=== PATIENT | male | born 1940 | race Caucasian/White ===

== ENCOUNTER 2018-09-24 13:37 | Inpatient (IN) ==
--- NOTE | 2018-09-24 13:36 | Emergency Department Note ---
ED Disposition Clinical Impression: SBO (small bowel obstruction) Disposition: Admitted As Inpatient Condition on Discharge: Fair - Critical Care Critical Care Time: No Attestation: On , the high probability of a clinically significant, sudden or life threatening deterioration of the following system(s) required my full and direct attention, intervention and personal management. The time I documented below is in addition to time spent performing reported procedures but includes the following listed in this critical care notation. Medical Decision Making - Carlos Inquiry Pt receiving controlled substance: No Vital Signs: 09/24/18 13:20 09/24/18 13:35 09/24/18 14:18 Temperature 98 F Temperature Source Oral Pulse Rate Pulse Rate [Left Radial] 65 71 68 Respiratory Rate 16 18 16 Blood Pressure Blood Pressure [Right Arm] 173/81 H 168/82 H 158/78 H Blood Pressure Mean [Right Arm] 111 110 104 Blood Pressure Source Blood Pressure Source [Right Arm] Automatic Cuff Automatic Cuff Automatic Cuff Blood Pressure Position Blood Pressure Position [Right Arm] Supine Supine Sitting 02 Sat by Pulse Oximetry 99 99 99 Oxygen Delivery Method Room Air Room Air 09/24/18 14:37 09/24/18 16:19 09/24/18 17:23 Temperature Temperature Source Pulse Rate Pulse Rate [Left Radial] 68 66 79 Respiratory Rate 16 16 16 Blood Pressure Blood Pressure [Right Arm] 154/67 H 162/78 H 163/72 H Blood Pressure Mean [Right Arm] 96 106 102 Blood Pressure Source Blood Pressure Source [Right Arm] Manual Cuff/ Doppler Automatic Cuff Automatic Cuff Blood Pressure Position Blood Pressure Position [Right Arm] Sitting Sitting Supine 02 Sat by Pulse Oximetry 99 98 100 Oxygen Delivery Method Room Air Room Air Room Air 09/24/18 17:54 09/24/18 18:08 09/24/18 18:17 Temperature 98.1 F Temperature Source Temporal Artery Scan Pulse Rate 71 Pulse Rate [Left Radial] 69 77 Respiratory Rate 18 18 16 Blood Pressure 121/74 Blood Pressure [Right Arm] 151/77 H 152/77 H Blood Pressure Mean [Right Arm] 101 102 Blood Pressure Source Automatic Cuff Blood Pressure Source [Right Arm] Automatic Cuff Blood Pressure Position Sitting Blood Pressure Position [Right Arm] Sitting 02 Sat by Pulse Oximetry 100 98 Oxygen Delivery Method Room Air Room Air Room Air - Lab Data Lab Results 09/24/18 14:00: WBC 8.1, RBC 5.73, Hgb 14.9, Hct 44.2, MCV 77.2 L, MCH 25.9 L, MCHC 33.6, RDW 15.4, Plt Count 266, MPV 7.2 L, Neut % (Auto) 84.4 H, Lymph % (Auto) 8.9 L, [place] % (Auto) 6.2, Eos % (Auto) 0.2, Baso % (Auto) 0.3, Neut # (Auto) 6.8, Lymph # (Auto) 0.7, [place] # (Auto) 0.5, Eos # (Auto) 0.0, Baso # (Auto) 0.0 09/24/18 14:00: Sodium 135 L, Potassium 3.9, Chloride 97 L, Carbon Dioxide 27, Anion Gap 14.9, BUN 28 H, Creatinine 1.86 H, Estimated Creat Clear 44, Estimated GFR 35 L, Est GFR ( Amer) 43 L, Glucose 208 H, Calcium 9.7, Total Bilirubin 0.7, AST 25, ALT 33, Alkaline Phosphatase 113, Troponin I < 0.02, Total Protein 9.4 H, Albumin 3.6, Globulin 5.8 H, Albumin/Globulin Ratio 0.6 L, Lipase 96, TSH 11.17 H, Total Valproic Acid 55.8 09/24/18 14:47: Urine Color Yellow, Urine Appearance Clear, Urine pH 5.5, Ur Specific [place] >= 1.030, Urine Protein 2+, Urine Glucose (UA) Negative, Urine Ketones Trace, Urine Blood Negative, Urine Nitrate Negative, Urine Bilirubin Negative, Urine Urobilinogen 0.2, Ur Leukocyte Esterase Negative, Urine RBC Occ asional, Urine WBC 5-10, Ur Squamous Epith Cells 3-5, Urine Bacteria 1+ Result diagrams: 09/24/18 14:00 09/24/18 14:00 Orders (Tests/Meds): ED MEDICATIONS Generic Name Dose Route Start Last Admin Trade Name Freq PRN Reason Stop Dose Admin Sodium Chloride 1,000 mls @ 150 mls/hr 09/24/18 18:07 09/24/18 18:55 Sod Chlor 0.9% 1000ml Bag IV 10/24/18 16:59 150 mls/hr .[id number] ELYSE Administration Insulin Human Lispro 0 unit 09/24/18 21:00 Humalog 100 Units/Ml 3ml Vial (Ssi) SQ 10/24/18 20:59 ACHS ELYSE Protocol Morphine Sulfate 4 mg 09/24/18 18:07 Morphine 2mg/Ml Syringe IV 10/24/18 18:06 Q4HP PRN Severe Pain Ondansetron HCl 4 mg 09/24/18 18:07 Zofran 4mg/2ml Vial IV 10/24/18 18:06 Q8HP PRN Nausea Sodium Chloride 10 ml 09/24/18 18:07 Saline Flush 10ml Syringe IV 10/24/18 13:49 NEEDED PRN Maintain IV Site Discontinued Medications Generic Name Dose Route Start Last Admin Trade Name Freq PRN Reason Stop Dose Admin Sodium Chloride 1,000 mls @ 150 mls/hr 09/24/18 17:00 Sod Chlor 0.9% 1000ml Bag IV 10/24/18 16:59 .Q6H40M ELYSE Ondansetron HCl 4 mg 09/24/18 13:50 09/24/18 14:17 Zofran 4mg/2ml Vial IV 09/24/18 13:51 4 mg ONCE ONE Administration Sodium Chloride 1,000 ml 09/24/18 13:50 09/24/18 14:17 Sod Chlor 0.9% 1000ml Bag IV 09/24/18 13:51 1,000 ml BOLUS ONE Administration Sodium Chloride 10 ml 09/24/18 13:50 Saline Flush 10ml Syringe IV 10/24/18 13:49 NEEDED PRN Maintain IV Site ORDERS Category Date Time Status Consult to On-Call Gen'l Surgeon [CONS] Routine Cons 09/24/18 18:07 Ordered XR acute abdomen series Stat Exams 09/25/18 07:00 Ordered Basic Metabolic Panel AMLAB Lab 09/25/18 06:00 Ordered - CT Data CT Scan: Abdomen, Pelvis Time Received: 16:[address] Reviewed: Yes: I have viewed the radiologist's interpretation Findings Narrative: IMPRESSION: Moderate grade partial small bowel obstruction is suspected with questionable transition point in the left mid abdominal region within the mid to distal ileum. Scattered air-fluid levels are present in the small bowel with distended small bowel measuring up to 5 cm. There is also gastric distention with a fluid-filled stomach. Consider repeating exam with at least oral contrast. IV contrast may be utilized patient once the patient is hydrated if the renal function improves.. There is a small amount of ascites Dictated By: Elver Veliz MD Signed By: <Electronically signed by Elver Veliz MD in OV> 09/24/18 1611 - ECG Data Tracing #1 EKG interpreted by Antoni Angelo MD: Rhythm: sinus Rate: 79 [place]: Left Ectopy: none Conduction: normal ST Segment Changes: none T Wave Changes: none Q Waves: V2 LVH with strain No prior EKGs available for comparison - Physician Consults Physician Consulted: Darrel Time: 16:51 Reason -: Surgical Eval/Care Comment/Response: Agrees with NG tube for decompression. Flat and upright x- rays tomorrow. Additional Consult: Chanda Time: 16:58 Reason -: Admission Comment/Response: Agrees to admit the patient to the hospital. We discussed the patient's clinical information, including history, exam, laboratory and radiology results and ED course. Per hospital procedure, I will write temporary bridge inpatient orders on the patient. Specific orders requested by the [facility] physician: Continue IV fluids. Medical Decision Narrative: Spoke with pharmacist regarding medications that may be needed intravenously since he has an NG tube to suction and cannot get anything by NG or mouth. I am particularly concerned about thyroxine, which seems like it needs to be increased based on his TSH level and his Depakote, which seems to likely be for behavioral purposes since he does not carry a diagnosis of seizures. General Adult HPI - General Chief complaint: Nausea/Vomiting/Diarrhea Stated complaint: nausea Time Seen by Provider: 09/24/18 13:35 Mode of Arrival: EMS Limitations: Altered Mental Status Description of Symptoms (Recalled from ER Triage Doc. by RN): pt has been experiencing n/v since yesterday; complains of green vomitus and ABD cramping - History of Present Illness HPI narrative: Brought in by ambulance from [facility]. He has schizophrenia and is a poor historian. There has been reported vomiting and abdominal cramping since yesterday. The patient's abdomen is noted to be quite distended. Currently denying any pain. Bowel movements are unknown. - Related Data Home Medications Medication Instructions Recorded Confirmed Divalproex Sodium [Depakote ER] 500 mg PO DIRECTED 09/24/18 09/24/18 Docusate Sodium [Dulcolax Stool 100 mg PO DAILY 09/24/18 09/24/18 Softener] Levothyroxine Sodium 75 mcg PO DAILY 09/24/18 09/24/18 [Levothyroxine 75mcg (0.075mg) Tab] OLANZapine [Zyprexa] 10 mg PO DAILY 09/24/18 09/24/18 Polyethylene Glycol 3350 [Miralax 17 gm PO DAILYP PRN 09/24/18 09/24/18 17gm Packet] Rosuvastatin Calcium [Crestor] 20 mg PO DAILY 09/24/18 09/24/18 Allergies Allergy/AdvReac Type Severity Reaction Status Date / Time No Known Allergies Allergy Verified 09/24/18 18:05 [facility] History - Hepatitis A Screen Drug use history?: No High risk sexual behaviors?: No History of sexually transmitted infection?: No Currently employed?: No Childcare worker?: No Do you have indoor plumbing?: Yes Do you have electricity?: Yes Attestation statement:: This patient has been screened for Hepatitis A risk factors. I have reviewed the patient's past medical history: Yes Medical History: Reports:: Diabetes Mellitus Type 1, Diabetes Mellitus Type 2, Hyperlipidemia, Renal Disease (CKD stage 3) Denies:: Cancer, Internal Pacemaker, MRSA Other Medical History: Reports: Thyroid Disease (hyperthyroid), Other (schizophrenia, MR) Other Surgeries: No: Pacemaker Amputation: No Fractures: No - Social History Smoking Status: Former smoker Tobacco Type: cigarettes # Packs/Day (cigarettes): 2 Alcohol Intake: never Occupational Status: disabled Housing: assisted living facility Household Members: other - Psychiatric History Expresses thoughts of harming self/others: None Suicide Plan Description: No Plan ROS Obtained: Yes unobtainable due to mental condition Physical Exam - General General appearance: alert, in no apparent distress Comment: Smiling and pleasant. Does not appear to be in acute distress. Brownish liquid has dried in his facial hair below his lower lip, apparent vomitus. No discol oration of mucous membranes or vomitus present in mouth. - Head Head exam: atraumatic, normocephalic - ENT ENT exam: Present: mucous membranes moist - Neck Neck exam: Present: normal inspection, trachea midline - Chest Chest inspection: Present: normal inspection, symmetric chest wall rise - Respiratory Respiratory exam: Present: normal lung sounds bilaterally. Absent: respiratory distress - Cardiovascular Cardiovascular exam: Present: regular rate, normal rhythm, normal heart sounds - Abdominal Exam Abdominal exam: Present: distention (Very distended, tympanitic), tenderness, hyperactive bowel sounds Abdominal tenderness: Present: diffuse, mild - Extremities Exam Extremities exam: Present: normal inspection - Neurological Exam Neurological exam: Present: alert - Psychiatric Psychiatric exam: Present: normal affect, normal mood - Skin Skin exam: Present: warm, dry
[2018-09-24 14:11] LABS: Basophils % 0.3 % (0.1-2.0); Eosinophils % 0.2 % (0.1-12.0); Hematocrit 44.2 % (42.0-52.0); Hemoglobin 14.9 g/dL (14.1-18.0); Lymphocytes # 0.7 K/mm3 (0.7-4.5); Lymphocytes % 8.9 % (10-50); Mean Corpuscular HGB Conc 33.6 g/dL (31.8-35.4); Mean Corpuscular Hemoglobin 25.9 pg (27.0-31.2); Mean Corpuscular Volume 77.2 fl (80-94); Mean Platelet Volume 7.2 fl (7.4-10.4); Monocytes # 0.5 K/mm3 (0.1-1.0); Monocytes % 6.2 % (1.7-9.3); Neutrophils # 6.8 K/mm3 (1.8-7.8); Neutrophils % 84.4 % (37.0-80.0); Platelet Count 266 K/mm3 (142-424); Red Blood Count 5.73 M/mm3 (4.60-6.20); Red Cell Distribution Width 15.4 % (11.5-17.5); White Blood Count 8.1 K/mm3 (4.8-10.8)
[2018-09-24 14:34] LABS: Alanine Aminotransferase 33 U/L (12-78); Albumin Level 3.6 gm/dL (3.4-5.0); Albumin/Globulin Ratio 0.6 (1.1-1.8); Alkaline Phosphatase 113 U/L (46-116); Anion Gap 14.9 mEq/L (5-15); Aspartate Amino Transferase 25 U/L (15-37); Bilirubin,Total 0.7 mg/dL (0.2-1.0); Blood Urea Nitrogen 28 mg/dL (7-18); Calcium 9.7 mg/dL (8.5-10.1); Carbon Dioxide 27 mmol/L (21.0-32.0); Chloride 97 mmol/L (98-107); Globulin 5.8 gm/dl (1.3-3.2); Glucose 208 mg/dL (74-106); Lipase 96 u/L (73-393); Potassium 3.9 mmoL/L (3.5-5.1); Sodium 135 mmol/L (136-145); Thyroid Stimulating Hormone 11.17 uIU/ml (0.358-3.740); Total Protein,Serum 9.4 gm/dL (6.4-8.2); Valproic Acid, (Depakene) 55.8 ug/mL (50-100)
[2018-09-24 14:53] LABS: Microscopic, Urine URINE MICROSCOPIC (MICROSCOPIC)
[2018-09-24 14:58] LABS: Appearance,Urine CLEAR (Clear); Blood, Urine Negative (Negative); Color,Urine YELLOW (Yellow); Glucose,Urine (UA) Negative (Negative); Ketones,Urine TRACE (Negative); Leukocyte Esterase,Urine Negative (Negative); PH,Urine 5.5 (5.0-8.5); Protein,Urine 2+ (Negative); Specific Gravity, Urine >= 1.030 (1.005-1.030); Urobilinogen,Urine 0.2 EU/dl (0.2)
[2018-09-24 15:17] LABS: Bilirubin,Urine Negative (Negative)
[2018-09-24 15:20] LABS: Bacteria,Urine 1+ /lpf; RBC,Urine Occasional #/hpf (0-3)
--- NOTE | 2018-09-24 20:10 | Consult Report ---
*Admission Date: 09/24/18 *Chief complaint: Nausea/vomiting/abdominal distention *History of present illness: This is a 69-year-old gentleman seen in consultation after presenting to the emergency department with subacute onset nausea/vomiting and abdominal distention. Evaluation included a CT scan without contrast that revealed changes consistent with partial obstruction with a questionable transition (al though only a taper and not an abrupt transition) in the mid/distal ileum. Surgical service was consulted for further evaluation. Review of Systems - Review of Systems Review of systems:: unable to obtain [facility] History Medical History: Reports:: Diabetes Mellitus Type 1, Diabetes Mellitus Type 2, Hyperlipidemia, Renal Disease (CKD stage 3) Denies:: Cancer, Internal Pacemaker, MRSA *Have you ever received a pneumonia vaccine?: No (UNKNOWN) *Have you received a flu vaccine this season?: No (UNKNOWN) Other Medical History: Reports: Thyroid Disease (hyperthyroid), Other (schizophrenia, MR) Other Surgeries: No: Pacemaker Amputation: No Fractures: No - *Social History Smoking Status: Former smoker Tobacco Type: cigarettes # Packs/Day (cigarettes): 2 Alcohol Intake: never *Occupational Status:: disabled Housing: assisted living facility Household Members: other *Travel in the last 8 weeks: None - Psychiatric History Expresses thoughts of harming self/others: None Suicide Plan Description: No Plan Family Hx:: Unable to obtain Meds Home Medications Medication Instructions Recorded Confirmed Type Divalproex Sodium [Depakote ER] 500 mg PO DIRECTED 09/24/18 09/24/18 History Docusate Sodium [Dulcolax Stool 100 mg PO DAILY 09/24/18 09/24/18 History Softener] Levothyroxine Sodium 75 mcg PO DAILY 09/24/18 09/24/18 History [Levothyroxine 75mcg (0.075mg) Tab] OLANZapine [Zyprexa] 10 mg PO DAILY 09/24/18 09/24/18 History Polyethylene Glycol 3350 [Miralax 17 gm PO DAILYP PRN 09/24/18 09/24/18 History 17gm Packet] Rosuvastatin Calcium [Crestor] 20 mg PO DAILY 09/24/18 09/24/18 History Allergies Allergy/AdvReac Type Severity Reaction Status Date / Time No Known Allergies Allergy Verified 09/24/18 18:05 Exam Vital signs and Labs for Last 24 Hours: Temp Pulse Resp BP Pulse Ox 98.6 F 81 20 141/76 H 98 09/24/18 20:00 09/24/18 20:00 09/24/18 20:00 09/24/18 20:00 09/24/18 20:00 Laboratory Results - last 24 hr 09/24/18 14:00: WBC 8.1, RBC 5.73, Hgb 14.9, Hct 44.2, MCV 77.2 L, MCH 25.9 L, MCHC 33.6, RDW 15.4, Plt Count 266, MPV 7.2 L, Neut % (Auto) 84.4 H, Lymph % (Auto) 8.9 L, [place] % (Auto) 6.2, Eos % (Auto) 0.2, Baso % (Auto) 0.3, Neut # (Auto) 6.8, Lymph # (Auto) 0.7, [place] # (Auto) 0.5, Eos # (Auto) 0.0, Baso # (Auto) 0.0 09/24/18 14:00: Sodium 135 L, Potassium 3.9, Chloride 97 L, Carbon Dioxide 27, Anion Gap 14.9, BUN 28 H, Creatinine 1.86 H, Estimated Creat Clear 44, Estimated GFR 35 L, Est GFR ( Amer) 43 L, Glucose 208 H, Calcium 9.7, Total Bilirubin 0.7, AST 25, ALT 33, Alkaline Phosphatase 113, Troponin I < 0.02, Total Protein 9.4 H, Albumin 3.6, Globulin 5.8 H, Albumin/Globulin Ratio 0.6 L, Lipase 96, TSH 11.17 H, Total Valproic Acid 55.8 09/24/18 14:47: Urine Color Yellow, Urine Appearance Clear, Urine pH 5.5, Ur Specific [place] >= 1.030, Urine Protein 2+, Urine Glucose (UA) Negative, Urine Ketones Trace, Urine Blood Negative, Urine Nitrate Negative, Urine Bilirubin Negative, Urine Urobilinogen 0.2, Ur Leukocyte Esterase Negative, Urine RBC Occasional, Urine WBC 5-10, Ur Squamous Epith Cells 3-5, Urine Bacteria 1+ I & O for Last 24 hours: Intake & Output 09/22/18 09/23/18 09/24/18 09/25/18 11:59 11:59 11:59 11:59 Weight 156 lb 4 oz - Constitutional no acute distress - *Routine Respiratory Exam Absent: respiratory distress - *Routine Cardiovascular Exam Present: RRR - *Routine Abdominal Exam Present: soft, distended. Absent: tenderness Results - Labs 09/24/18 14:00 09/24/18 14:00 Laboratory Results - last 24 hr 09/24/18 14:00: WBC 8.1, RBC 5.73, Hgb 14.9, Hct 44.2, MCV 77.2 L, MCH 25.9 L, MCHC 33.6, RDW 15.4, Plt Count 266, MPV 7.2 L, Neut % (Auto) 84.4 H, Lymph % (Auto) 8.9 L, [place] % (Auto) 6.2, Eos % (Auto) 0.2, Baso % (Auto) 0.3, Neut # (Auto) 6.8, Lymph # (Auto) 0.7, [place] # (Auto) 0.5, Eos # (Auto) 0.0, Baso # (Auto) 0.0 09/24/18 14:00: Sodium 135 L, Potassium 3.9, Chloride 97 L, Carbon Dioxide 27, Anion Gap 14.9, BUN 28 H, Creatinine 1.86 H, Estimated Creat Clear 44, Estimated GFR 35 L, Est GFR ( Amer) 43 L, Glucose 208 H, Calcium 9.7, Total Bilirubin 0.7, AST 25, ALT 33, Alkaline Phosphatase 113, Troponin I < 0.02, Total Protein 9.4 H, Albumin 3.6, Globulin 5.8 H, Albumin/Globulin Ratio 0.6 L, Lipase 96, TSH 11.17 H, Total Valproic Acid 55.8 09/24/18 14:47: Urine Color Yellow, Urine Appearance Clear, Urine pH 5.5, Ur Specific [place] >= 1.030, Urine Protein 2+, Urine Glucose (UA) Negative, Urine Ketones Trace, Urine Blood Negative, Urine Nitrate Negative, Urine Bilirubin Negative, Urine Urobilinogen 0.2, Ur Leukocyte Esterase Negative, Urine RBC Occasional, Urine WBC 5-10, Ur Squamous Epith Cells 3-5, Urine Bacteria 1+ - Imaging CT scan - abdomen: report reviewed, image reviewed CT scan - pelvis: report reviewed, image reviewed Assessment and Plan (1) SBO (small bowel obstruction) Current visit: Yes Status: Acute Category: Medical Code(s): K56.609 - Uns pecified intestinal obstruction, unspecified as to partial versus complete obstruction Seemingly partial obstruction with questionable transition (tapering, but not abrupt "cut off") and mid/distal ileum. The patient is quite distended but does not have an acute abdomen. Continue nasogastric decompression Serial exams Flat and upright films in a.m. Small bowel follow-through with barium followed by Gastrografin
--- NOTE | 2018-09-24 20:42 | History & Physical Report ---
*Admission Date: 09/24/18 *Chief complaint: vomiting *History of present illness: this wm was sent from local half-way with progressive abd pain with vomiting - rought in by ambulance from [facility]. He has schizophrenia and is a poor historian. There has been reported vomiting and abdominal cramping since yesterday. The patient's abdomen is noted to be quite distended. Currently denying any pain. Bowel movements are unknown. pt with sbo on ct and pt with continued sx and was admitted with ng tube and ivf and surg consult [facility] History I have reviewed the patient's past medical history: Yes Medical History: Reports:: Diabetes Mellitus Type 1, Diabetes Mellitus Type 2, Hyperlipidemia, Renal Disease (CKD stage 3) Denies:: Cancer, Internal Pacemaker, MRSA *Have you ever received a pneumonia vaccine?: No (UNKNOWN) *Have you received a flu vaccine this season?: No (UNKNOWN) Other Medical History: Reports: Thyroid Disease (hyperthyroid), Other (schizo phrenia, MR) Other Surgeries: No: Pacemaker Amputation: No Fractures: No - *Social History Smoking Status: Former smoker Tobacco Type: cigarettes # Packs/Day (cigarettes): 2 Alcohol Intake: never *Occupational Status:: disabled Housing: assisted living facility Household Members: other *Travel in the last 8 weeks: None - Psychiatric History Expresses thoughts of harming self/others: None Suicide Plan Description: No Plan Family Hx:: Unable to obtain Review of Systems - Review of Systems Review of systems:: pertinent systems reviewed and negative unless documented below - Constitutional Denies fever(s) - Eyes Denies change in vision - ENT Denies sore throat - *Cardiovascular Denies chest pain at rest - *Respiratory Denies cough - *Gastrointestinal Reports abdominal pain, Reports nausea, Reports vomiting - *Musculoskeletal Denies joint pain - Integumentary/Breasts Denies rash - *Neurologic Denies confusion, Denies seizure-like activity - Psychiatric Denies anxiety Meds Home Medications Medication Instructions Recorded Confirmed Type Divalproex Sodium [Depakote ER] 500 mg PO DIRECTED 09/24/18 09/24/18 History Docusate Sodium [Dulcolax Stool 100 mg PO DAILY 09/24/18 09/24/18 History Softener] Levothyroxine Sodium 75 mcg PO DAILY 09/24/18 09/24/18 History [Levothyroxine 75mcg (0.075mg) Tab] OLANZapine [Zyprexa] 10 mg PO DAILY 09/24/18 09/24/18 History Polyethylene Glycol 3350 [Miralax 17 gm PO DAILYP PRN 09/24/18 09/24/18 History 17gm Packet] Rosuvastatin Calcium [Crestor] 20 mg PO DAILY 09/24/18 09/24/18 History Allergies Allergy/AdvReac Type Severity Reaction Status Date / Time No Known Allergies Allergy Verified 09/24/18 18:05 Exam Vital signs and Labs for Last 24 Hours: Temp Pulse Resp BP Pulse Ox 98.6 F 81 20 141/76 H 98 09/24/18 20:00 09/24/18 20:00 09/24/18 20:00 09/24/18 20:00 09/24/18 20:00 Laboratory Results - last 24 hr 09/24/18 14:00: WBC 8.1, RBC 5.73, Hgb 14.9, Hct 44.2, MCV 77.2 L, MCH 25.9 L, MCHC 33.6, RDW 15.4, Plt Count 266, MPV 7.2 L, Neut % (Auto) 84.4 H, Lymph % (Auto) 8.9 L, [place] % (Auto) 6.2, Eos % (Auto) 0.2, Baso % (Auto) 0.3, Neut # (Auto) 6.8, Lymph # (Auto) 0.7, [place] # (Auto) 0.5, Eos # (Auto) 0.0, Baso # (Auto) 0.0 09/24/18 14:00: Sodium 135 L, Potassium 3.9, Chloride 97 L, Carbon Dioxide 27, Anion Gap 14.9, BUN 28 H, Creatinine 1.86 H, Estimated Creat Clear 44, Estimated GFR 35 L, Est GFR ( Amer) 43 L, Glucose 208 H, Calcium 9.7, Total Bilirubin 0.7, AST 25, ALT 33, Alkaline Phosphatase 113, Troponin I < 0.02, Total Protein 9.4 H, Albumin 3.6, Globulin 5.8 H, Albumin/Globulin Ratio 0.6 L, Lipase 96, TSH 11.17 H, Total Valproic Acid 55.8 09/24/18 14:47: Urine Color Yellow, Urine Appearance Clear, Urine pH 5.5, Ur Specific [place] >= 1.030, Urine Protein 2+, Urine Glucose (UA) Negative, Urine Ketones Trace, Urine Blood Negative, Urine Nitrate Negative, Urine Bilirubin Negative, Urine Urobilinogen 0.2, Ur Leukocyte Esterase Negative, Urine RBC Occasional, Urine WBC 5-10, Ur Squamous Epith Cells 3-5, Urine Bacteria 1+ I & O for Last 24 hours: Intake & Output 09/22/18 09/23/18 09/24/18 09/25/18 11:59 11:59 11:59 11:59 Weight 156 lb 4 oz - Constitutional no acute distress - *Routine HEENT Exam Head: Present: normocephalic Eye: Present: EOMI, PERRL. Absent: conjunctival icterus ENT: Present: mucous membranes dry - *Routine Neck Exam Absent: JVD - *Routine Respiratory Exam Present: decreased breath sounds - *Routine Cardiovascular Exam Present: RRR, murmur - *Routine Abdominal Exam Present: soft, tenderness, distended - *Routine Extremities Exam Absent: edema - *Routine Skin Exam Present: intact - *Routine Neurological Exam Present: alert, CN II-XII intact - Routine Psychiatric Exam Present: normal affect Assessment and Plan (1) SBO (small bowel obstruction) Current visit: Yes Status: Acute Category: Medical Code(s): K56.609 - Unspecified intestinal obstruction, unspecified as to partial versus complete obstruction (2) Schizophrenia Current visit: Yes Status: Acute Qualifiers: Schizophrenia type: unspecified Qualified Code(s): F20.9 - Schizophrenia, unspecified Category: Medical Code(s): F20.9 - Schizophrenia, unspecified (3) Renal insufficiency Current visit: Yes Status: Acute Category: Medical Code(s): N28.9 - Disorder of kidney and ureter, unspecified (4) Hypothyroidism (acquired) Current visit: Yes Status: Acute Category: Medical Code(s): E03.9 - Hypothyroidism, unspecified
--- NOTE | 2018-09-25 06:47 | Progress Note ---
Subjective Patient reports: other (resting) Exam Vital signs and Labs for Last 24 Hours: Temp Pulse Resp BP Pulse Ox 97.9 F 75 16 148/72 H 96 09/25/18 04:00 09/25/18 04:00 09/25/18 04:00 09/25/18 04:00 09/25/18 04:00 Laboratory Results - last 24 hr 09/24/18 14:00: WBC 8.1, RBC 5.73, Hgb 14.9, Hct 44.2, MCV 77.2 L, MCH 25.9 L, MCHC 33.6, RDW 15.4, Plt Count 266, MPV 7.2 L, Neut % (Auto) 84.4 H, Lymph % (Auto) 8.9 L, [place] % (Auto) 6.2, Eos % (Auto) 0.2, Baso % (Auto) 0.3, Neut # (Auto) 6.8, Lymph # (Auto) 0.7, [place] # (Auto) 0.5, Eos # (Auto) 0.0, Baso # (Auto) 0.0 09/24/18 14:00: Sodium 135 L, Potassium 3.9, Chloride 97 L, Carbon Dioxide 27, Anion Gap 14.9, BUN 28 H, Creatinine 1.86 H, Estimated Creat Clear 44, Estimated GFR 35 L, Est GFR ( Amer) 43 L, Glucose 208 H, Calcium 9.7, Total Bilirubin 0.7, AST 25, ALT 33, Alkaline Phosphatase 113, Troponin I < 0.02, Total Protein 9.4 H, Albumin 3.6, Globulin 5.8 H, Albumin/Globulin Ratio 0.6 L, Lipase 96, TSH 11.17 H, Total Valproic Acid 55.8 09/24/18 14:47: Urine Color Yellow, Urine Appearance Clear, Urine pH 5.5, Ur Specific [place] >= 1.030, Urine Protein 2+, Urine Glucose (UA) Negative, Urine Ketones Trace, Urine Blood Negative, Urine Nitrate Negative, Urine Bilirubin Negative, Urine Urobilinogen 0.2, Ur Leukocyte Esterase Negative, Urine RBC Occasional, Urine WBC 5-10, Ur Squamous Epith Cells 3-5, Urine Bacteria 1+ 09/24/18 22:17: POC Glucose 143 H I & O for Last 24 hours: Intake & Output 0409/23/18 09/24/18 09/25/18 11:59 11:59 11:59 11:59 Weight 159 lb 6 oz - Constitutional no acute distress - *Routine Abdominal Exam Present: soft, distended Comments: no significant TTP significant distention is essentially unchanged Progress Note: A&P (1) SBO (small bowel obstruction) Status: Acute Assessment and plan: Partial obstruction of undetermined etiology versus severe ileus Follow-up morning films Follow-up pending small bowel follow-through Continue nasogastric decompression Continue serial abdominal exams Current Visit: Yes
[2018-09-25 07:36] LABS: Basophils % 0.2 % (0.1-2.0); Eosinophils % 0.5 % (0.1-12.0); Hematocrit 42.4 % (42.0-52.0); Hemoglobin 14.2 g/dL (14.1-18.0); Lymphocytes # 1.2 K/mm3 (0.7-4.5); Lymphocytes % 16.9 % (10-50); Mean Corpuscular HGB Conc 33.4 g/dL (31.8-35.4); Mean Corpuscular Hemoglobin 25.7 pg (27.0-31.2); Mean Platelet Volume 7.6 fl (7.4-10.4); Monocytes # 0.8 K/mm3 (0.1-1.0); Monocytes % 11.8 % (1.7-9.3); Neutrophils # 4.9 K/mm3 (1.8-7.8); Neutrophils % 70.6 % (37.0-80.0); Platelet Count 195 K/mm3 (142-424); Red Blood Count 5.51 M/mm3 (4.60-6.20); Red Cell Distribution Width 15.5 % (11.5-17.5)
[2018-09-25 07:48] LABS: Anion Gap 15.9 mEq/L (5-15); Potassium 3.9 mmoL/L (3.5-5.1)
--- NOTE | 2018-09-25 07:51 | Pharmacy Consult Notes ---
[facility] Pharmacy VTE Monitoring - Patient Demographics Admission date: 09/25/18 Report Date: 09/25/18 Time: 07:50 Allergies/Adverse Reactions: Patient Allergies No Known Allergies Allergy (Verified 09/24/18 18:05) Height: 1.83 m Weight: 72.291 kg Patient Problems: Current Active Problems SBO (small bowel obstruction) (Acute) Schizophrenia (Acute) Renal insufficiency (Acute) Hypothyroidism (acquired) (Acute) - VTE Risk Labs: VTE Related Lab Results Hgb 14.2 g/dL (14.1-18.0) 09/25/18 07:12 Hct 42.4 % (42.0-52.0) 09/25/18 07:12 Plt Count 195 K/mm3 (142-424) D 09/25/18 07:12 BUN 24 mg/dL (7-18) H 09/25/18 07:12 Creatinine 1.42 mg/dL (0.70-1.30) H D 09/25/18 07:12 Estimated Creat Clear 44 mL/min (50-200) 09/25/18 07:12 Clinical Trial Participant: No - Prophylaxis VTE Prophylaxis Ordered?: Yes Types of VTE Prophylaxis: TEDS Knee High Location of Applied Device: Refused
[2018-09-25 07:58] LABS: Calcium 8.2 mg/dL (8.5-10.1)
--- NOTE | 2018-09-25 09:01 | Progress Note ---
Internal Medicine - PN: Subj *Date: 09/25/18 *Time: 09:00 Exam Vital signs and Labs for Last 24 Hours: Temp Pulse Resp BP Pulse Ox 97.9 F 69 16 138/70 100 09/25/18 08:00 09/25/18 08:00 09/25/18 08:00 09/25/18 08:00 09/25/18 08:00 Laboratory Results - last 24 hr 09/24/18 14:00: WBC 8.1, RBC 5.73, Hgb 14.9, Hct 44.2, MCV 77.2 L, MCH 25.9 L, MCHC 33.6, RDW 15.4, Plt Count 266, MPV 7.2 L, Neut % (Auto) 84.4 H, Lymph % (Auto) 8.9 L, [place] % (Auto) 6.2, Eos % (Auto) 0.2, Baso % (Auto) 0.3, Neut # (Auto) 6.8, Lymph # (Auto) 0.7, [place] # (Auto) 0.5, Eos # (Auto) 0.0, Baso # (Auto) 0.0 09/24/18 14:00: Sodium 135 L, Potassium 3.9, Chloride 97 L, Carbon Dioxide 27, Anion Gap 14.9, BUN 28 H, Creatinine 1.86 H, Estimated Creat Clear 44, Estimated GFR 35 L, Est GFR ( Amer) 43 L, Glucose 208 H, Calcium 9.7, Total Bilirubin 0.7, AST 25, ALT 33, Alkaline Phosphatase 113, Troponin I < 0.02, Total Protein 9.4 H, Albumin 3.6, Globulin 5.8 H, Albumin/Globulin Ratio 0.6 L, Lipase 96, TSH 11.17 H, Total Valproic Acid 55.8 09/24/18 14:47: Urine Color Yellow, Urine Appearance Clear, Urine pH 5.5, Ur Specific [place] >= 1.030, Urine Protein 2+, Urine Glucose (UA) Negative, Urine Ketones Trace, Urine Blood Negative, Urine Nitrate Negative, Urine Bilirubin Negative, Urine Urobilinogen 0.2, Ur Leukocyte Esterase Negative, Urine RBC Occasional, Urine WBC 5-10, Ur Squamous Epith Cells 3-5, Urine Bacteria 1+ 09/24/18 22:17: POC Glucose 143 H 09/25/18 06:30: POC Glucose 143 H 09/25/18 07:12: Sodium 141, Potassium 3.9, Chloride 105, Carbon Dioxide 24, Anion Gap 15.9 H, BUN 24 H, Creatinine 1.42 H D, Estimated Creat Clear 44, Estimated GFR 48 L, Est GFR ( Amer) 58 L D, Glucose 144 H D, Calcium 8.2 L D 09/25/18 07:12: WBC 7.0, RBC 5.51, Hgb 14.2, Hct 42.4, MCV 77.0 L, MCH 25.7 L, MCHC 33.4, RDW 15.5, Plt Count 195 D, MPV 7.6, Neut % (Auto) 70.6, Lymph % (Auto) 16.9, [place] % (Auto) 11.8 H, Eos % (Auto) 0.5, Baso % (Auto) 0.2, Neut # (Auto) 4.9, Lymph # (Auto) 1.2, [place] # (Auto) 0.8, Eos # (Auto) 0.0, Baso # (Auto) 0.0 I & O for Last 24 hours: Intake & Output 09/22/18 09/23/18 09/24/18 09/25/18 11:59 11:59 11:59 11:59 Intake Total 2116 / 2116 Output Total 650 / 650 Balance 1466 / 1466 Weight 159 lb 6 oz - Constitutional no acute distress - *Routine HEENT Exam Head: Present: normocephalic Eye: Present: EOMI, PERRL ENT: Present: mucous membranes moist Comments: ng tube in place - *Routine Neck Exam Present: supple. Absent: lymphadenopathy - *Routine Respiratory Exam Present: CTA bilaterally - *Routine Cardiovascular Exam Present: RRR - *Routine Abdominal Exam Present: soft, tenderness, distended - *Routine Extremities Exam Absent: cyanosis, clubbing, edema - *Routine Skin Exam Present: warm. Absent: rash - *Routine Neurological Exam Present: alert, oriented X3 - Routine Psychiatric Exam Present: normal affect Assessment and Plan (1) SBO (small bowel obstruction) Current visit: Yes Status: Acute Category: Medical Code(s): K56.609 - Unspecified intestinal obstruction, unspecified as to partial versus complete obstruction (2) Schizophrenia Current visit: Yes Status: Acute Qualifiers: Schizophrenia type: unspecified Qualified Code(s): F20.9 - Schizophrenia, unspecified Category: Medical Code(s): F20.9 - Schizophrenia, unspecified (3) Renal insufficiency Current visit: Yes Status: Acute Category: Medical Code(s): N28.9 - Disorder of kidney and ureter, unspecified (4) Hypothyroidism (acquired) Current visit: Yes Status: Acute Category: Medical Code(s): E03.9 - Hypothyroidism, unspecified - Assessment and plan all Dx Assessment and Plan for all problems:: Rounded with Dr. Armas all orders per Chanda
--- NOTE | 2018-09-26 07:01 | Progress Note ---
Subjective Patient reports: no flatus (no change) Exam Vital signs and Labs for Last 24 Hours: Temp Pulse Resp BP Pulse Ox 97.9 F 78 16 139/68 94 L 09/26/18 04:00 09/26/18 04:00 09/26/18 04:00 09/26/18 04:00 09/26/18 04:00 Laboratory Results - last 24 hr 09/25/18 06:30: POC Glucose 143 H 09/25/18 07:12: Sodium 141, Potassium 3.9, Chloride 105, Carbon Dioxide 24, Anion Gap 15.9 H, BUN 24 H, Creatinine 1.42 H D, Estimated Creat Clear 44, Estimated GFR 48 L, Est GFR ( Amer) 58 L D, Glucose 144 H D, Calcium 8.2 L D 09/25/18 07:12: WBC 7.0, RBC 5.51, Hgb 14.2, Hct 42.4, MCV 77.0 L, MCH 25.7 L, MCHC 33.4, RDW 15.5, Plt Count 195 D, MPV 7.6, Neut % (Auto) 70.6, Lymph % (Auto) 16.9, [place] % (Auto) 11.8 H, Eos % (Auto) 0.5, Baso % (Auto) 0.2, Neut # (Auto) 4.9, Lymph # (Auto) 1.2, [place] # (Auto) 0.8, Eos # (Auto) 0.0, Baso # (Auto) 0.0 09/25/18 16:56: POC Glucose 129 H 09/25/18 21:02: POC Glucose 138 H 09/26/18 05:58: POC Glucose 150 H I & O for Last 24 hours: Intake & Output 09/23/18 09/24/18 09/25/18 09/26/18 11:59 11:59 11:59 11:59 Intake Total 2116 / 2116 2985 / 2985 Output Total 650 / 650 800 / 800 Balance 1466 / 1466 2185 / 2185 Weight 159 lb 6 oz - Constitutional no acute distress - *Routine Abdominal Exam Present: distended. Absent: tenderness Comments: NG is not in correct position...it has been pulled back to 30cm. NOTE: NG pushed back to original position; however, both ports are difficult to flush. Progress Note: A&P (1) SBO (small bowel obstruction) Status: Acute Assessment and plan: SBFT yesterday show extreme ileus pattern...existence of actual obstruction not yet confirmed. Unfortunately, the nasogastric tube has been displaced for an undetermined period of time. The nasogastric tube has been pushed back into its original position but is only partially functional and may require replacement. Follow-up morning films Serial abdominal exams Current Visit: Yes (2) Schizophrenia Status: Acute Current Visit: Yes (3) Renal insufficiency Status: Acute Current Visit: Yes (4) Hypothyroidism (acquired) Status: Acute Current Visit: Yes
[2018-09-26 08:39] LABS: Basophils % 0.5 % (0.1-2.0); Eosinophils % 0.5 % (0.1-12.0); Hematocrit 36.8 % (42.0-52.0); Hemoglobin 12.2 g/dL (14.1-18.0); Lymphocytes # 1.2 K/mm3 (0.7-4.5); Lymphocytes % 21.6 % (10-50); Mean Corpuscular HGB Conc 33.1 g/dL (31.8-35.4); Mean Corpuscular Hemoglobin 25.6 pg (27.0-31.2); Mean Corpuscular Volume 77.3 fl (80-94); Mean Platelet Volume 7.1 fl (7.4-10.4); Monocytes # 0.7 K/mm3 (0.1-1.0); Monocytes % 12.1 % (1.7-9.3); Neutrophils # 3.7 K/mm3 (1.8-7.8); Neutrophils % 65.2 % (37.0-80.0); Platelet Count 203 K/mm3 (142-424); Red Blood Count 4.76 M/mm3 (4.60-6.20); Red Cell Distribution Width 15.5 % (11.5-17.5); White Blood Count 5.7 K/mm3 (4.8-10.8)
[2018-09-26 08:48] LABS: Albumin Level 2.5 gm/dL (3.4-5.0); Albumin/Globulin Ratio 0.6 (1.1-1.8); Anion Gap 15.9 mEq/L (5-15); Bilirubin,Total 0.4 mg/dL (0.2-1.0); Calcium 8.1 mg/dL (8.5-10.1); Globulin 4.3 gm/dl (1.3-3.2); Potassium 3.9 mmoL/L (3.5-5.1); Total Protein,Serum 6.8 gm/dL (6.4-8.2)
--- NOTE | 2018-09-26 09:35 | Progress Note ---
Internal Medicine - PN: Subj *Date: 09/26/18 *Time: 09:33 Interval history: Patient still has NG tube in place with a distended abdomen. Patient states he feels okay today. Exam Vital signs and Labs for Last 24 Hours: Temp Pulse Resp BP Pulse Ox 98.3 F 68 17 141/61 H 99 09/26/18 08:00 09/26/18 08:00 09/26/18 08:00 09/26/18 08:00 09/26/18 08:00 Laboratory Results - last 24 hr 09/25/18 16:56: POC Glucose 129 H 09/25/18 21:02: POC Glucose 138 H 09/26/18 05:58: POC Glucose 150 H 09/26/18 08:28: WBC 5.7, RBC 4.76, Hgb 12.2 L, Hct 36.8 L, MCV 77.3 L, MCH 25.6 L, MCHC 33.1, RDW 15.5, Plt Count 203, MPV 7.1 L, Neut % (Auto) 65.2, Lymph % (Auto) 21.6, [place] % (Auto) 12.1 H, Eos % (Auto) 0.5, Baso % (Auto) 0.5, Neut # (Auto) 3.7, Lymph # (Auto) 1.2, Lane # (Auto) 0.7, Eos # (Auto) 0.0, Baso # (Auto) 0.0 09/26/18 08:28: Sodium 146 H, Potassium 3.9, Chloride 109 H, Carbon Dioxide 25, Anion Gap 15.9 H, BUN 24 H, Creatinine 1.29, Estimated Creat Clear 47, Estimated GFR 54 L, Est GFR ( Amer) 65, Glucose 128 H, Calcium 8.1 L, Total Bilirubin 0.4, AST 21, ALT 22 D, Alkaline Phosphatase 77, Total Protein 6.8 D, Albumin 2.5 L, Globulin 4.3 H, Albumin/Globulin Ratio 0.6 L I & O for Last 24 hours: Intake & Output 09/23/18 09/24/18 09/25/18 09/26/18 11:59 11:59 11:59 11:59 Intake Total 2116 / 2116 2985 / 2985 Output Total 650 / 650 800 / 800 Balance 1466 / 1466 2185 / 2185 Weight 159 lb 6 oz 156 lb 2 oz - Constitutional no acute distress - *Routine HEENT Exam Head: Present: normocephalic Eye: Present: EOMI, PERRL ENT: Present: mucous membranes moist - *Routine Neck Exam Present: supple. Absent: lymphadenopathy - *Routine Respiratory Exam Present: CTA bilaterally - *Routine Cardiovascular Exam Present: RRR - *Routine Abdominal Exam Present: soft, tenderness, distended - *Routine Exam Comments: Balbuena draining clear yellow urine at bedside - *Routine Extremities Exam Absent: cyanosis, clubbing, edema - *Routine Skin Exam Present: intact, warm. Absent: rash - *Routine Neurological Exam Present: alert, oriented X3 - Routine Psychiatric Exam Present: normal affect Assessment and Plan (1) SBO (small bowel obstruction) Current visit: Yes Status: Acute Category: Medical Code(s): K56.609 - Unspecified intestinal obstruction, unspecified as to partial versus complete obstruction (2) Schizophrenia Current visit: Yes Status: Acute Qualifiers: Schizophrenia type: unspecified Qualified Code(s): F20.9 - Schizophrenia, unspecified Category: Medical Code(s): F20.9 - Schizophrenia, unspecified (3) Renal insufficiency Current visit: Yes Status: Acute Category: Medical Code(s): N28.9 - Disorder of kidney and ureter, unspecified (4) Hypothyroidism (acquired) Current visit: Yes Status: Acute Category: Medical Code(s): E03.9 - Hypothyroidism, unspecified - Assessment and plan all Dx Assessment and Plan for all problems:: Rounded with Dr. Armas all orders per Chanda We will continue to follow with Dr. Rojo
[2018-09-27 06:25] LABS: Eosinophils # 0.1 K/mm3 (0.0-0.4); Platelet Count 219 K/mm3 (142-424)
[2018-09-27 06:37] LABS: Basophils % 0.7 % (0.1-2.0); Eosinophils % 1.1 % (0.1-12.0); Hematocrit 33.6 % (42.0-52.0); Lymphocytes # 0.9 K/mm3 (0.7-4.5); Lymphocytes % 18.3 % (10-50); Mean Corpuscular HGB Conc 32.3 g/dL (31.8-35.4); Mean Corpuscular Hemoglobin 25.8 pg (27.0-31.2); Mean Corpuscular Volume 79.7 fl (80-94); Mean Platelet Volume 7.1 fl (7.4-10.4); Monocytes # 0.5 K/mm3 (0.1-1.0); Monocytes % 9.8 % (1.7-9.3); Neutrophils # 3.3 K/mm3 (1.8-7.8); Red Blood Count 4.22 M/mm3 (4.60-6.20); Red Cell Distribution Width 15.4 % (11.5-17.5); White Blood Count 4.8 K/mm3 (4.8-10.8)
[2018-09-27 06:38] LABS: Hemoglobin 10.9 g/dL (14.1-18.0)
[2018-09-27 06:39] LABS: Albumin Level 2.1 gm/dL (3.4-5.0); Albumin/Globulin Ratio 0.5 (1.1-1.8); Anion Gap 13.9 mEq/L (5-15); Bilirubin,Total 0.3 mg/dL (0.2-1.0); Calcium 7.8 mg/dL (8.5-10.1); Potassium 3.9 mmoL/L (3.5-5.1); Total Protein,Serum 6.1 gm/dL (6.4-8.2)
--- NOTE | 2018-09-27 08:11 | Progress Note ---
Internal Medicine - PN: Subj *Date: 09/27/18 *Time: 08:09 Interval history: reports feeling ok but still with ng - labs ok Exam Vital signs and Labs for Last 24 Hours: Temp Pulse Resp BP Pulse Ox 97.6 F 65 18 140/68 96 09/27/18 04:00 09/27/18 04:00 09/27/18 04:00 09/27/18 04:00 09/27/18 04:00 Laboratory Results - last 24 hr 09/26/18 08:28: WBC 5.7, RBC 4.76, Hgb 12.2 L, Hct 36.8 L, MCV 77.3 L, MCH 25.6 L, MCHC 33.1, RDW 15.5, Plt Count 203, MPV 7.1 L, Neut % (Auto) 65.2, Lymph % (Auto) 21.6, [place] % (Auto) 12.1 H, Eos % (Auto) 0.5, Baso % (Auto) 0.5, Neut # (Auto) 3.7, Lymph # (Auto) 1.2, [place] # (Auto) 0.7, Eos # (Auto) 0.0, Baso # (Auto) 0.0 09/26/18 08:28: Sodium 146 H, Potassium 3.9, Chloride 109 H, Carbon Dioxide 25, Anion Gap 15.9 H, BUN 24 H, Creatinine 1.29, Estimated Creat Clear 47, Estimated GFR 54 L, Est GFR ( Amer) 65, Glucose 128 H, Calcium 8.1 L, Total Bilirubin 0.4, AST 21, ALT 22 D, Alkaline Phosphatase 77, Total Protein 6.8 D, Albumin 2.5 L, Globulin 4.3 H, Albumin/Globulin Ratio 0.6 L 09/26/18 11:40: POC Glucose 116 H 09/26/18 17:34: POC Glucose 132 H 09/26/18 20:04: POC Glucose 123 H 09/27/18 05:30: WBC 4.8, RBC 4.22 L, Hgb 10.9 L D, Hct 33.6 L, MCV 79.7 L, MCH 25.8 L, MCHC 32.3, RDW 15.4, Plt Count 219, MPV 7.1 L, Neut % (Auto) 70.0, Lymph % (Auto) 18.3, [place] % (Auto) 9.8 H, Eos % (Auto) 1.1, Baso % (Auto) 0.7, Neut # (Auto) 3.3, Lymph # (Auto) 0.9, [place] # (Auto) 0.5, Eos # (Auto) 0.1, Baso # (Auto) 0.0 09/27/18 05:30: Sodium 148 H, Potassium 3.9, Chloride 114 H, Carbon Dioxide 24, Anion Gap 13.9, BUN 19 H, Creatinine 1.16, Estimated Creat Clear 56, Estimated GFR 61, Est GFR ( Amer) 74, Glucose 118 H, Calcium 7.8 L, Total Bilirubin 0.3, AST 15 D, ALT 17, Alkaline Phosphatase 67, Total Protein 6.1 L, Albumin 2.1 L D, Globulin 4.0 H, Albumin/Globulin Ratio 0.5 L 09/27/18 05:59: POC Glucose 112 H I & O for Last 24 hours: Intake & Output 09/24/18 09/25/18 09/26/18 09/27/18 11:59 11:59 11:59 11:59 Intake Total 2116 / 2116 2985 / 2985 Output Total 650 / 650 940 / 940 600 / 600 Balance 1466 / 1466 2045 / 204 -590 / -590 Weight 159 lb 6 oz 156 lb 2 oz 165 lb - Constitutional no acute distress - *Routine HEENT Exam Head: Present: normocephalic Eye: Present: EOMI, PERRL ENT: Present: mucous membranes dry Comments: has ng tube - *Routine Neck Exam Absent: JVD - *Routine Respiratory Exam Present: decreased breath sounds - *Routine Cardiovascular Exam Present: RRR, murmur - *Routine Abdominal Exam Present: soft - *Routine Extremities Exam Absent: edema - *Routine Skin Exam Present: intact - *Routine Neurological Exam Present: alert, CN II-XII intact - Routine Psychiatric Exam Present: unable to assess Assessment and Plan (1) SBO (small bowel obstruction) Current visit: Yes Status: Acute Category: Medical Code(s): K56.609 - Unspecified intestinal obstruction, unspecified as to partial versus complete obstruction (2) Schizophrenia Current visit: Yes Status: Acute Qualifiers: Schizophrenia type: unspecified Qualified Code(s): F20.9 - Schizophrenia, unspecified Category: Medical Code(s): F20.9 - Schizophrenia, unspecified (3) Renal insufficiency Current visit: Yes Status: Acute Category: Medical Code(s): N28.9 - Disorder of kidney and ureter, unspecified (4) Hypothyroidism (acquired) Current visit: Yes Status: Acute Category: Medical Code(s): E03.9 - Hypothyroidism, unspecified (5) Ileus Current visit: Yes Status: Acute Category: Medical Code(s): K56.7 - Ileus, unspecified
--- NOTE | 2018-09-27 18:23 | Progress Note ---
Subjective Patient reports: no new complaints, no flatus, no bowel movement Narrative: Mr. Ambrocio is a 77-year-old male admitted to [facility] with small bowel obstruction; attributed to ileus with unclear etiology. NG tube remains in place. No significant flatus or bowel movement. No nausea or emesis . Interval events not easily obtained by history. Exam Vital signs and Labs for Last 24 Hours: Temp Pulse Resp BP Pulse Ox 97.8 F 58 L 17 153/65 H 95 09/27/18 16:00 09/27/18 16:00 09/27/18 16:00 09/27/18 16:00 09/27/18 16:00 Laboratory Results - last 24 hr 09/26/18 20:04: POC Glucose 123 H 09/27/18 05:30: WBC 4.8, RBC 4.22 L, Hgb 10.9 L D, Hct 33.6 L, MCV 79.7 L, MCH 25.8 L, MCHC 32.3, RDW 15.4, Plt Count 219, MPV 7.1 L, Neut % (Auto) 70.0, Lymph % (Auto) 18.3, [place] % (Auto) 9.8 H, Eos % (Auto) 1.1, Baso % (Auto) 0.7, Neut # (Auto) 3.3, Lymph # (Auto) 0.9, [place] # (Auto) 0.5, Eos # (Auto) 0.1, Baso # (Auto) 0.0 09/27/18 05:30: Sodium 148 H, Potassium 3.9, Chloride 114 H, Carbon Dioxide 24, Anion Gap 13.9, BUN 19 H, Creatinine 1.16, Estimated Creat Clear 56, Estimated GFR 61, Est GFR ( Amer) 74, Glucose 118 H, Calcium 7.8 L, Total Bilirubin 0.3, AST 15 D, ALT 17, Alkaline Phosphatase 67, Total Protein 6.1 L, Albumin 2.1 L D, Globulin 4.0 H, Albumin/Globulin Ratio 0.5 L 09/27/18 05:59: POC Glucose 112 H 09/27/18 10:57: POC Glucose 122 H 09/27/18 16:33: POC Glucose 98 I & O for Last 24 hours: Intake & Output 09/25/18 09/26/18 09/27/18 09/28/18 11:59 11:59 11:59 11:59 Intake Total 2116 / 2116 2985 / 2985 Output Total 650 / 650 940 / 940 600 / 600 Balance 1466 / 1466 2044 / 2044 -590 / -590 Weight 72.291 kg 70.817 kg 74.843 kg - *Routine Respiratory Exam Present: CTA bilaterally - *Routine Cardiovascular Exam Present: RRR - *Routine Abdominal Exam Comments: Soft. Distended. Tympanitic. Minimally tender. Progress Note: A&P (1) SBO (small bowel obstruction) Status: Acute Current Visit: Yes (2) Schizophrenia Status: Acute Current Visit: Yes (3) Renal insufficiency Status: Acute Current Visit: Yes (4) Hypothyroidism (acquired) Status: Acute Current Visit: Yes (5) Ileus Status: Acute Current Visit: Yes Assessment and Plan for All Diagnoses:: Small bowel obstruction. Partial. NG tube repositioned. Large volume air returned. Minimal liquid return. Continue nonoperative and conservative management. Continue to manipulate NG tube in hopes of improved decompression. Await further bowel function. Laboratory evaluation noted. No significant changes over past 24 hours.
[2018-09-28 07:42] LABS: Basophils % 0.4 % (0.1-2.0); Eosinophils % 0.7 % (0.1-12.0); Hematocrit 34.5 % (42.0-52.0); Hemoglobin 11.1 g/dL (14.1-18.0); Lymphocytes # 0.9 K/mm3 (0.7-4.5); Lymphocytes % 17.9 % (10-50); Mean Corpuscular HGB Conc 32.2 g/dL (31.8-35.4); Mean Corpuscular Hemoglobin 25.9 pg (27.0-31.2); Mean Corpuscular Volume 80.2 fl (80-94); Mean Platelet Volume 7.2 fl (7.4-10.4); Monocytes # 0.4 K/mm3 (0.1-1.0); Monocytes % 8.6 % (1.7-9.3); Neutrophils # 3.6 K/mm3 (1.8-7.8); Neutrophils % 72.4 % (37.0-80.0); Platelet Count 227 K/mm3 (142-424); Red Blood Count 4.31 M/mm3 (4.60-6.20); Red Cell Distribution Width 15.6 % (11.5-17.5)
[2018-09-28 07:55] LABS: Albumin Level 2.3 gm/dL (3.4-5.0); Albumin/Globulin Ratio 0.6 (1.1-1.8); Anion Gap 14.8 mEq/L (5-15); Bilirubin,Total 0.3 mg/dL (0.2-1.0); Calcium 8.2 mg/dL (8.5-10.1); Globulin 4.1 gm/dl (1.3-3.2); Potassium 3.8 mmoL/L (3.5-5.1); Total Protein,Serum 6.4 gm/dL (6.4-8.2)
--- NOTE | 2018-09-28 08:19 | Progress Note ---
Internal Medicine - PN: Subj *Date: 09/28/18 *Time: 08:14 Interval history: pt doing ok - still with ileus - will use lovenox for dvt at this time Exam Vital signs and Labs for Last 24 Hours: Temp Pulse Resp BP Pulse Ox 97.4 F L 63 20 140/93 H 95 09/28/18 04:00 09/28/18 04:00 09/28/18 04:00 09/28/18 04:00 09/28/18 04:00 Laboratory Results - last 24 hr 09/27/18 10:57: POC Glucose 122 H 09/27/18 16:33: POC Glucose 98 09/27/18 21:26: POC Glucose 129 H 09/28/18 06:00: POC Glucose 125 H 09/28/18 06:13: WBC 5.0, RBC 4.31 L, Hgb 11.1 L, Hct 34.5 L, MCV 80.2, MCH 25.9 L, MCHC 32.2, RDW 15.6, Plt Count 227, MPV 7.2 L, Neut % (Auto) 72.4, Lymph % (Auto) 17.9, [place] % (Auto) 8.6, Eos % (Auto) 0.7, Baso % (Auto) 0.4, Neut # (Auto) 3.6, Lymph # (Auto) 0.9, [place] # (Auto) 0.4, Eos # (Auto) 0.0, Baso # (Auto) 0.0 09/28/18 06:13: Sodium 149 H, Potassium 3.8, Chloride 115 H, Carbon Dioxide 23, Anion Gap 14.8, BUN 17, Creatinine 1.21, Estimated Creat Clear 54, Estimated GFR 58 L, Est GFR ( Amer) 70, Glucose 119 H, Calcium 8.2 L, Total Bilirubin 0.3, AST 17, ALT 18, Alkaline Phosphatase 69, Total Protein 6.4, Albumin 2.3 L, Globulin 4.1 H, Albumin/Globulin Ratio 0.6 L I & O for Last 24 hours: Intake & Output 09/25/18 09/26/18 09/27/18 09/28/18 11:59 11:59 11:59 11:59 Intake Total 2116 / 2116 2985 / 2985 3146 / 3146 Output Total 650 / 650 940 / 940 600 / 600 1300 / 1300 Balance 1466 / 1466 2045 / 2045 -590 / -590 1846 / 1846 Weight 159 lb 6 oz 156 lb 2 oz 165 lb 168 lb 7 oz - Constitutional no acute distress, thin - *Routine HEENT Exam Head: Present: normocephalic Eye: Present: EOMI, PERRL. Absent: conjunctival icterus ENT: Present: mucous membranes dry - *Routine Neck Exam Absent: JVD - *Routine Respiratory Exam Present: decreased breath sounds - *Routine Cardiovascular Exam Present: RRR, murmur - *Routine Abdominal Exam Present: soft, distended Comments: has ng tube - *Routine Extremities Exam Absent: calf tenderness - *Routine Skin Exam Present: intact - *Routine Neurological Exam Present: alert. Absent: motor deficit - Routine Psychiatric Exam Present: normal affect Assessment and Plan (1) SBO (small bowel obstruction) Current visit: Yes Status: Acute Category: Medical Code(s): K56.609 - Unspecified intestinal obstruction, unspecified as to partial versus complete obstruction (2) Schizophrenia Current visit: Yes Status: Acute Qualifiers: Schizophrenia type: unspecified Qualified Code(s): F20.9 - Schizophrenia, unspecified Category: Medical Code(s): F20.9 - Schizophrenia, unspecified (3) Renal insufficiency Current visit: Yes Status: Acute Category: Medical Code(s): N28.9 - Disorder of kidney and ureter, unspecified (4) Hypothyroidism (acquired) Current visit: Yes Status: Acute Category: Medical Code(s): E03.9 - Hypothyroidism, unspecified (5) Ileus Current visit: Yes Status: Acute Category: Medical Code(s): K56.7 - Ileus, unspecified
[2018-09-28 08:57] LABS: Thyroid Stimulating Hormone 8.52 uIU/ml (0.358-3.740)
--- NOTE | 2018-09-28 09:08 | Progress Note ---
Subjective Narrative: Mr. Ambrocio is a 77-year-old male admitted to [facility] with small bowel obstruction; attributed to ileus with unclear etiology. NG tube remains in place. Continues to have no significant flatus or bowel movement. Balbuena catheter in place. NG tube has showed improved decompression with approximately 500-600 mLs over the past 12 hours. No nausea or emesis. Exam Vital signs and Labs for Last 24 Hours: Temp Pulse Resp BP Pulse Ox 97.8 F 48 L 18 157/65 H 90 L 09/28/18 08:00 09/28/18 08:00 09/28/18 08:00 09/28/18 08:00 09/28/18 08:00 Laboratory Results - last 24 hr 09/27/18 10:57: POC Glucose 122 H 09/27/18 16:33: POC Glucose 98 09/27/18 21:26: POC Glucose 129 H 09/28/18 06:00: POC Glucose 125 H 09/28/18 06:13: WBC 5.0, RBC 4.31 L, Hgb 11.1 L, Hct 34.5 L, MCV 80.2, MCH 25.9 L, MCHC 32.2, RDW 15.6, Plt Count 227, MPV 7.2 L, Neut % (Auto) 72.4, Lymph % (Auto) 17.9, [place] % (Auto) 8.6, Eos % (Auto) 0.7, Baso % (Auto) 0.4, Neut # (Auto) 3.6, Lymph # (Auto) 0.9, [place] # (Auto) 0.4, Eos # (Auto) 0.0, Baso # (Auto) 0.0 09/28/18 06:13: Sodium 149 H, Potassium 3.8, Chloride 115 H, Carbon Dioxide 23, Anion Gap 14.8, BUN 17, Creatinine 1.21, Estimated Creat Clear 54, Estimated GFR 58 L, Est GFR ( Amer) 70, Glucose 119 H, Calcium 8.2 L, Total Bilirubin 0.3, AST 17, ALT 18, Alkaline Phosphatase 69, Total Protein 6.4, Albumin 2.3 L, Globulin 4.1 H, Albumin/Globulin Ratio 0.6 L 09/28/18 06:13: TSH 8.52 H, Thyroxine (T4) 5.3 I & O for Last 24 hours: Intake & Output 09/25/18 09/26/18 09/27/18 09/28/18 11:59 11:59 11:59 11:59 Intake Total 2116 / 2116 2985 / 2985 3146 / 3146 Output Total 650 / 650 940 / 940 600 / 600 1300 / 1300 Balance 1466 / 1466 2045 / 2045 -590 / -590 1846 / 1846 Weight 72.291 kg 70.817 kg 74.843 kg 76.402 kg - *Routine Abdominal Exam Comments: Soft. Less distended. Nontender. Progress Note: A&P (1) SBO (small bowel obstruction) Status: Acute Current Visit: Yes (2) Schizophrenia Status: Acute Current Visit: Yes (3) Renal insufficiency Status: Acute Current Visit: Yes (4) Hypothyroidism (acquired) Status: Acute Current Visit: Yes (5) Ileus Status: Acute Current Visit: Yes Assessment and Plan for All Diagnoses:: Small bowel obstruction. Attributed to ileus. Imaging from September 24, 2018 and September 25, 2018 noted; reviewed once again. Attempt to restart diet. Clamp NG tube. Transition IV fluids to include dextrose. Begin PPI. Allow limited clear liquid diet.
[2018-09-29 06:54] LABS: Basophils # 0.1 K/mm3 (0-0.2); Basophils % 0.4 % (0.1-2.0); Eosinophils # 0.1 K/mm3 (0.0-0.4); Hematocrit 37.5 % (42.0-52.0); Hemoglobin 12.3 g/dL (14.1-18.0); Lymphocytes # 1.1 K/mm3 (0.7-4.5); Lymphocytes % 10.2 % (10-50); Mean Corpuscular HGB Conc 32.7 g/dL (31.8-35.4); Mean Corpuscular Hemoglobin 25.9 pg (27.0-31.2); Mean Corpuscular Volume 79.3 fl (80-94); Mean Platelet Volume 6.9 fl (7.4-10.4); Monocytes # 0.6 K/mm3 (0.1-1.0); Monocytes % 5.8 % (1.7-9.3); Neutrophils # 9.2 K/mm3 (1.8-7.8); Neutrophils % 82.5 % (37.0-80.0); Platelet Count 279 K/mm3 (142-424); Red Blood Count 4.73 M/mm3 (4.60-6.20); Red Cell Distribution Width 15.9 % (11.5-17.5); White Blood Count 11.1 K/mm3 (4.8-10.8)
[2018-09-29 07:09] LABS: Albumin Level 2.3 gm/dL (3.4-5.0); Albumin/Globulin Ratio 0.5 (1.1-1.8); Anion Gap 13.6 mEq/L (5-15); Bilirubin,Total 0.3 mg/dL (0.2-1.0); Calcium 8.2 mg/dL (8.5-10.1); Globulin 4.3 gm/dl (1.3-3.2); Potassium 3.6 mmoL/L (3.5-5.1); Total Protein,Serum 6.6 gm/dL (6.4-8.2)
--- NOTE | 2018-09-29 07:47 | Progress Note ---
Subjective Narrative: Patient had less out of NG and it has been clamped. Exam Vital signs and Labs for Last 24 Hours: Temp Pulse Resp BP Pulse Ox 97.8 F 68 18 140/68 92 L 09/29/18 07:20 09/29/18 07:20 09/29/18 07:20 09/29/18 07:20 09/29/18 07:20 Laboratory Results - last 24 hr 09/28/18 06:13: WBC 5.0, RBC 4.31 L, Hgb 11.1 L, Hct 34.5 L, MCV 80.2, MCH 25.9 L, MCHC 32.2, RDW 15.6, Plt Count 227, MPV 7.2 L, Neut % (Auto) 72.4, Lymph % (Auto) 17.9, [place] % (Auto) 8.6, Eos % (Auto) 0.7, Baso % (Auto) 0.4, Neut # (Auto) 3.6, Lymph # (Auto) 0.9, [place] # (Auto) 0.4, Eos # (Auto) 0.0, Baso # (Auto) 0.0 09/28/18 06:13: Sodium 149 H, Potassium 3.8, Chloride 115 H, Carbon Dioxide 23, Anion Gap 14.8, BUN 17, Creatinine 1.21, Estimated Creat Clear 54, Estimated GFR 58 L, Est GFR ( Amer) 70, Glucose 119 H, Calcium 8.2 L, Total Bilirubin 0.3, AST 17, ALT 18, Alkaline Phosphatase 69, Total Protein 6.4, Albumin 2.3 L, Globulin 4.1 H, Albumin/Globulin Ratio 0.6 L 09/28/18 06:13: TSH 8.52 H, Thyroxine (T4) 5.3 09/28/18 11:34: POC Glucose 122 H 09/28/18 17:11: POC Glucose 152 H 09/28/18 21:33: POC Glucose 134 H 09/29/18 06:23: POC Glucose 181 H 09/29/18 06:44: WBC 11.1 H D, RBC 4.73, Hgb 12.3 L, Hct 37.5 L, MCV 79.3 L, MCH 25.9 L, MCHC 32.7, RDW 15.9, Plt Count 279, MPV 6.9 L, Neut % (Auto) 82.5 H, Lymph % (Auto) 10.2, [place] % (Auto) 5.8, Eos % (Auto) 1.0, Baso % (Auto) 0.4, Neut # (Auto) 9.2 H, Lymph # (Auto) 1.1, [place] # (Auto) 0.6, Eos # (Auto) 0.1, Baso # (Auto) 0.1 09/29/18 06:44: Sodium 145, Potassium 3.6, Chloride 111 H, Carbon Dioxide 24, Anion Gap 13.6, BUN 10 D, Creatinine 1.21, Estimated Creat Clear 55, Estimated GFR 58 L, Est GFR ( Amer) 70, Glucose 190 H, Calcium 8.2 L, Total Bilirubin 0.3, AST 14 L, ALT 16, Alkaline Phosphatase 71, Total Protein 6.6, Albumin 2.3 L, Globulin 4.3 H, Albumin/Globulin Ratio 0.5 L I & O for Last 24 hours: Intake & Output 09/26/18 09/27/18 09/28/18 09/29/18 11:59 11:59 11:59 11:59 Intake Total 2985 / 2985 10 3146 / 3146 2714 / 2714 Output Total 940 / 940 600 / 600 1300 / 1300 1665 / 1665 Balance 2045 / 2045 -590 / -590 1846 / 1846 1049 / 1049 Weight 156 lb 2 oz 165 lb 168 lb 7 oz 171 lb 8 oz - *Routine Abdominal Exam Present: distended Comments: Hypoactive bowel sounds. Mild tenderness to deep palpation without guarding or rebound. Progress Note: A&P (1) SBO (small bowel obstruction) Status: Acute Current Visit: Yes (2) Schizophrenia Status: Acute Current Visit: Yes (3) Renal insufficiency Status: Acute Current Visit: Yes (4) Hypothyroidism (acquired) Status: Acute Current Visit: Yes (5) Ileus Status: Acute Current Visit: Yes Assessment and Plan for All Diagnoses:: Acute abdominal series.
--- NOTE | 2018-09-29 09:20 | Progress Note ---
Internal Medicine - PN: Subj *Date: 09/29/18 *Time: 09:17 Interval history: feels better this am- less distended - Exam Vital signs and Labs for Last 24 Hours: Temp Pulse Resp BP Pulse Ox 97.8 F 68 18 140/68 92 L 09/29/18 07:20 09/29/18 07:20 09/29/18 07:20 09/29/18 07:20 09/29/18 07:20 Laboratory Results - last 24 hr 09/28/18 11:34: POC Glucose 122 H 09/28/18 17:11: POC Glucose 152 H 09/28/18 21:33: POC Glucose 134 H 09/29/18 06:23: POC Glucose 181 H 09/29/18 06:44: WBC 11.1 H D, RBC 4.73, Hgb 12.3 L, Hct 37.5 L, MCV 79.3 L, MCH 25.9 L, MCHC 32.7, RDW 15.9, Plt Count 279, MPV 6.9 L, Neut % (Auto) 82.5 H, Lymph % (Auto) 10.2, [place] % (Auto) 5.8, Eos % (Auto) 1.0, Baso % (Auto) 0.4, Neut # (Auto) 9.2 H, Lymph # (Auto) 1.1, [place] # (Auto) 0.6, Eos # (Auto) 0.1, Baso # (Auto) 0.1 09/29/18 06:44: Sodium 145, Potassium 3.6, Chloride 111 H, Carbon Dioxide 24, Anion Gap 13.6, BUN 10 D, Creatinine 1.21, Estimated Creat Clear 55, Estimated GFR 58 L, Est GFR ( Amer) 70, Glucose 190 H, Calcium 8.2 L, Total Bilirubin 0.3, AST 14 L, ALT 16, Alkaline Phosphatase 71, Total Protein 6.6, Albumin 2.3 L, Globulin 4.3 H, Albumin/Globulin Ratio 0.5 L I & O for Last 24 hours: Intake & Output 09/26/18 09/27/18 09/28/18 09/29/18 11:59 11:59 11:59 11:59 Intake Total 2985 / 2985 3146 / 3146 2714 / 2714 Output Total 940 / 940 600 / 600 1300 / 1300 1665 / 1665 Balance 2045 / 204 -590 / -590 1846 / 1846 1049 / 1049 Weight 156 lb 2 oz 165 lb 168 lb 7 oz 171 lb 8 oz - Constitutional no acute distress - *Routine HEENT Exam Head: Present: normocephalic Eye: Present: EOMI, PERRL ENT: Present: mucous membranes dry Comments: ng tube clamped - *Routine Neck Exam Absent: JVD - *Routine Respiratory Exam Present: CTA bilaterally - *Routine Cardiovascular Exam Present: RRR, murmur - *Routine Abdominal Exam Present: soft, distended - *Routine Extremities Exam Absent: calf tenderness - *Routine Skin Exam Present: intact - *Routine Neurological Exam Present: alert, CN II-XII intact - Routine Psychiatric Exam Present: unable to assess Assessment and Plan (1) SBO (small bowel obstruction) Current visit: Yes Status: Acute Category: Medical Code(s): K56.609 - Unspecified intestinal obstruction, unspecified as to partial versus complete obstruction (2) Schizophrenia Current visit: Yes Status: Acute Qualifiers: Schizophrenia type: unspecified Qualified Code(s): F20.9 - Schizophrenia, unspecified Category: Medical Code(s): F20.9 - Schizophrenia, unspecified (3) Renal insufficiency Current visit: Yes Status: Acute Category: Medical Code(s): N28.9 - Disorder of kidney and ureter, unspecified (4) Hypothyroidism (acquired) Current visit: Yes Status: Acute Category: Medical Code(s): E03.9 - Hypothyroidism, unspecified (5) Ileus Current visit: Yes Status: Acute Category: Medical Code(s): K56.7 - Ileus, unspecified
[2018-09-30 07:49] LABS: Basophils % 0.3 % (0.1-2.0); Eosinophils # 0.5 K/mm3 (0.0-0.4); Eosinophils % 3.7 % (0.1-12.0); Hematocrit 39.3 % (42.0-52.0); Hemoglobin 13.1 g/dL (14.1-18.0); Lymphocytes # 1.5 K/mm3 (0.7-4.5); Lymphocytes % 11.5 % (10-50); Mean Corpuscular HGB Conc 33.3 g/dL (31.8-35.4); Mean Corpuscular Hemoglobin 26.2 pg (27.0-31.2); Mean Corpuscular Volume 78.9 fl (80-94); Mean Platelet Volume 6.7 fl (7.4-10.4); Monocytes % 7.4 % (1.7-9.3); Neutrophils # 9.9 K/mm3 (1.8-7.8); Neutrophils % 77.1 % (37.0-80.0); Platelet Count 245 K/mm3 (142-424); Red Blood Count 4.98 M/mm3 (4.60-6.20); Red Cell Distribution Width 15.9 % (11.5-17.5); White Blood Count 12.9 K/mm3 (4.8-10.8)
[2018-09-30 08:31] LABS: Albumin Level 2.2 gm/dL (3.4-5.0); Albumin/Globulin Ratio 0.5 (1.1-1.8); Anion Gap 13.4 mEq/L (5-15); Bilirubin,Total 0.4 mg/dL (0.2-1.0); Calcium 7.8 mg/dL (8.5-10.1); Globulin 4.5 gm/dl (1.3-3.2); Potassium 3.4 mmoL/L (3.5-5.1); Total Protein,Serum 6.7 gm/dL (6.4-8.2)
--- NOTE | 2018-09-30 08:56 | Progress Note ---
Subjective Patient reports: flatus, bowel movement (a few BMs and intermittent flatus over the last few days) Exam Vital signs and Labs for Last 24 Hours: Temp Pulse Resp BP Pulse Ox 98.4 F 72 20 159/73 H 90 L 09/30/18 08:00 09/30/18 08:00 09/30/18 08:00 09/30/18 08:00 09/30/18 08:00 Laboratory Results - last 24 hr 09/29/18 10:59: POC Glucose 128 H 09/29/18 16:33: POC Glucose 127 H 09/29/18 20:09: POC Glucose 167 H 09/30/18 05:54: POC Glucose 157 H 09/30/18 07:40: WBC 12.9 H, RBC 4.98, Hgb 13.1 L, Hct 39.3 L, MCV 78.9 L, MCH 26.2 L, MCHC 33.3, RDW 15.9, Plt Count 245, MPV 6.7 L, Neut % (Auto) 77.1, Lymph % (Auto) 11.5, [place] % (Auto) 7.4, Eos % (Auto) 3.7, Baso % (Auto) 0.3, Neut # (Auto) 9.9 H, Lymph # (Auto) 1.5, [place] # (Auto) 1.0, Eos # (Auto) 0.5 H, Baso # (Auto) 0.0 09/30/18 07:40: Sodium 139, Potassium 3.4 L, Chloride 106, Carbon Dioxide 23, Anion Gap 13.4, BUN 6 L D, Creatinine 1.16, Estimated Creat Clear 58, Estimated GFR 61, Est GFR ( Amer) 74, Glucose 169 H, Calcium 7.8 L, Total Bilirubin 0.4, AST 21 D, ALT 22 D, Alkaline Phosphatase 77, Total Protein 6.7, Albumin 2.2 L, Globulin 4.5 H, Albumin/Globulin Ratio 0.5 L I & O for Last 24 hours: Intake & Output 09/27/18 09/28/18 09/29/18 09/30/18 11:59 11:59 11:59 11:59 Intake Total 3146 / 3146 2714 / 2714 3347 / 3347 Output Total 600 / 600 1300 / 1300 1665 / 1665 1110 / 1110 Balance -590 / -590 1846 / 1846 1049 / 1049 2237 / 2237 Weight 165 lb 168 lb 7 oz 171 lb 8 oz 172 lb 1 oz - Constitutional no acute distress - *Routine Respiratory Exam Absent: respiratory distress - *Routine Abdominal Exam Present: soft, distended Progress Note: A&P (1) SBO (small bowel obstruction) Status: Acute Current Visit: Yes (2) Schizophrenia Status: Acute Current Visit: Yes (3) Renal insufficiency Status: Acute Current Visit: Yes (4) Hypothyroidism (acquired) Status: Acute Current Visit: Yes (5) Ileus Status: Acute Assessment and plan: no sign of obstruction of SBFT...intermittent flatus also not c/w obstruction. He remains quite distended and his ileus has been exceptionally slow to resolve. NG now on alternating suction/clamp [multiple courses of action are appropriate at this point in terms of discontinuing or continuing decompression] Current Visit: Yes
--- NOTE | 2018-09-30 09:01 | Progress Note ---
Internal Medicine - PN: Subj *Date: 09/30/18 *Time: 08:56 Interval history: Abdomen distended NG clamped Rico draining at bedside Patient asking for injury to be discontinued Upon entering the room patient does not make eye contact questionable whether patient can see. I asked patient how many fingers he seen he stated 2 or 3 when to fingers were held up. When changed to 5 fingers patient states 2, patient does not report being blind or having trouble seeing. Exam Vital signs and Labs for Last 24 Hours: Temp Pulse Resp BP Pulse Ox 98.4 F 72 20 159/73 H 90 L 09/30/18 08:00 09/30/18 08:00 09/30/18 08:00 09/30/18 08:00 09/30/18 08:00 Laboratory Results - last 24 hr 09/29/18 10:59: POC Glucose 128 H 09/29/18 16:33: POC Glucose 127 H 09/29/18 20:09: POC Glucose 167 H 09/30/18 05:54: POC Glucose 157 H 09/30/18 07:40: WBC 12.9 H, RBC 4.98, Hgb 13.1 L, Hct 39.3 L, MCV 78.9 L, MCH 26.2 L, MCHC 33.3, RDW 15.9, Plt Count 245, MPV 6.7 L, Neut % (Auto) 77.1, Lymph % (Auto) 11.5, [place] % (Auto) 7.4, Eos % (Auto) 3.7, Baso % (Auto) 0.3, Neut # (Auto) 9.9 H, Lymph # (Auto) 1.5, [place] # (Auto) 1.0, Eos # (Auto) 0.5 H, Baso # (Auto) 0.0 09/30/18 07:40: Sodium 139, Potassium 3.4 L, Chloride 106, Carbon Dioxide 23, Anion Gap 13.4, BUN 6 L D, Creatinine 1.16, Estimated Creat Clear 58, Estimated GFR 61, Est GFR ( Amer) 74, Glucose 169 H, Calcium 7.8 L, Total Bilirubin 0.4, AST 21 D, ALT 22 D, Alkaline Phosphatase 77, Total Protein 6.7, Albumin 2.2 L, Globulin 4.5 H, Albumin/Globulin Ratio 0.5 L I & O for Last 24 hours: Intake & Output 09/27/18 09/28/18 09/29/18 09/30/18 11:59 11:59 11:59 11:59 Intake Total 3146 / 3146 2714 / 2714 3347 / 3347 Output Total 600 / 600 1300 / 1300 1665 / 1665 1110 / 1110 Balance -590 / -590 1846 / 1846 1049 / 1049 2237 / 2237 Weight 165 lb 168 lb 7 oz 171 lb 8 oz 172 lb 1 oz - Constitutional no acute distress - *Routine HEENT Exam Head: Present: normocephalic Eye: Present: EOMI, PERRL ENT: Present: mucous membranes moist Comments: When holding 2 fingers up patient states "2 or 3". When holding up 5 fingers patient states 2 or 4. Patient does not make eye contact and has not since admission. - *Routine Neck Exam Present: supple. Absent: lymphadenopathy - *Routine Respiratory Exam Present: CTA bilaterally - *Routine Cardiovascular Exam Present: RRR - *Routine Abdominal Exam Present: normoactive bowel sounds, tenderness, distended - *Routine Exam Comments: rico draining at bedside - *Routine Extremities Exam Absent: cyanosis, clubbing, edema - *Routine Skin Exam Present: warm. Absent: rash - *Routine Neurological Exam Present: alert, oriented X3 Assessment and Plan (1) SBO (small bowel obstruction) Current visit: Yes Status: Acute Category: Medical Code(s): K56.609 - Unspecified intestinal obstruction, unspecified as to partial versus complete obstruction (2) Schizophrenia Current visit: Yes Status: Acute Qualifiers: Schizophrenia type: unspecified Qualified Code(s): F20.9 - Schizophrenia, unspecified Category: Medical Code(s): F20.9 - Schizophrenia, unspecified (3) Renal insufficiency Current visit: Yes Status: Acute Category: Medical Code(s): N28.9 - Disorder of kidney and ureter, unspecified (4) Hypothyroidism (acquired) Current visit: Yes Status: Acute Category: Medical Code(s): E03.9 - Hypothyroidism, unspecified (5) Ileus Current visit: Yes Status: Acute Category: Medical Code(s): K56.7 - Ileus, unspecified - Assessment and plan all Dx Assessment and Plan for all problems:: Chanda will round later today all orders per Dr. Armas We will check with personal [facility] to see if patient has been reported blind If no history will CT scan head
[2018-10-01 07:28] LABS: Basophils # 0.1 K/mm3 (0-0.2); Basophils % 0.6 % (0.1-2.0); Eosinophils # 0.6 K/mm3 (0.0-0.4); Eosinophils % 5.7 % (0.1-12.0); Hematocrit 37.1 % (42.0-52.0); Lymphocytes # 1.3 K/mm3 (0.7-4.5); Lymphocytes % 12.8 % (10-50); Mean Corpuscular HGB Conc 32.4 g/dL (31.8-35.4); Mean Corpuscular Hemoglobin 26.1 pg (27.0-31.2); Mean Corpuscular Volume 80.4 fl (80-94); Mean Platelet Volume 9.5 fl (7.4-10.4); Monocytes # 1.4 K/mm3 (0.1-1.0); Monocytes % 14.1 % (1.7-9.3); Neutrophils # 6.8 K/mm3 (1.8-7.8); Neutrophils % 66.8 % (37.0-80.0); Platelet Count 157 K/mm3 (142-424); Red Blood Count 4.62 M/mm3 (4.60-6.20); Red Cell Distribution Width 16.3 % (11.5-17.5); White Blood Count 10.2 K/mm3 (4.8-10.8)
[2018-10-01 07:49] LABS: Calcium 7.8 mg/dL (8.5-10.1)
--- NOTE | 2018-10-01 08:15 | Progress Note ---
Subjective Patient reports: no new complaints (NG out) Exam Vital signs and Labs for Last 24 Hours: Temp Pulse Resp BP Pulse Ox 98.5 F 63 16 134/77 91 L 10/01/18 07:59 10/01/18 07:59 10/01/18 07:59 10/01/18 07:59 10/01/18 07:59 Laboratory Results - last 24 hr 09/30/18 07:40: Sodium 139, Potassium 3.4 L, Chloride 106, Carbon Dioxide 23, Anion Gap 13.4, BUN 6 L D, Creatinine 1.16, Estimated Creat Clear 58, Estimated GFR 61, Est GFR ( Amer) 74, Glucose 169 H, Calcium 7.8 L, Total Bilirubin 0.4, AST 21 D, ALT 22 D, Alkaline Phosphatase 77, Total Protein 6.7, Albumin 2.2 L, Globulin 4.5 H, Albumin/Globulin Ratio 0.5 L 09/30/18 11:47: POC Glucose 132 H 09/30/18 16:33: POC Glucose 129 H 09/30/18 20:17: POC Glucose 140 H 10/01/18 05:43: POC Glucose 128 H 10/01/18 07:05: WBC 10.2, RBC 4.62, Hgb 12.0 L, Hct 37.1 L, MCV 80.4, MCH 26.1 L , MCHC 32.4, RDW 16.3, Plt Count 157 D, MPV 9.5, Neut % (Auto) 66.8, Lymph % (Auto) 12.8, [place] % (Auto) 14.1 H, Eos % (Auto) 5.7, Baso % (Auto) 0.6, Neut # (Auto) 6.8, Lymph # (Auto) 1.3, [place] # (Auto) 1.4 H, Eos # (Auto) 0.6 H, Baso # (Auto) 0.1 10/01/18 07:05: Sodium 137, Potassium 4.0, Chloride 105, Carbon Dioxide 25, Anion Gap 11.0, BUN 5 L, Creatinine 1.08, Estimated Creat Clear 63, Estimated GFR 66, Est GFR ( Amer) 80, Glucose 143 H, Calcium 7.8 L I & O for Last 24 hours: Intake & Output 09/28/18 09/29/18 09/30/18 10/01/18 11:59 11:59 11:59 11:59 Intake Total 3146 / 3146 2714 / 2714 3347 / 3347 2367 / 2367 Output Total 1300 / 1300 1665 / 1665 1210 / 1210 2600 / 2600 Balance 1846 / 1846 1049 / 1049 2137 / 2137 -233 / -233 Weight 168 lb 7 oz 171 lb 8 oz 172 lb 1 oz 173 lb 6 oz - Constitutional no acute distress - *Routine Abdominal Exam Present: soft, distended Comments: slightly less distended this AM Progress Note: A&P (1) SBO (small bowel obstruction) Status: Acute Current Visit: Yes (2) Schizophrenia Status: Acute Current Visit: Yes (3) Renal insufficiency Status: Acute Current Visit: Yes (4) Hypothyroidism (acquired) Status: Acute Current Visit: Yes (5) Ileus Status: Acute Assessment and plan: Ileus has been exceptionally slow to resolve [NG now out] Continue to closely monitor toleration of p.o. intake and abdominal exam Current Visit: Yes
--- NOTE | 2018-10-01 16:48 | Progress Note ---
Internal Medicine - PN: Subj *Date: 10/01/18 *Time: 08:00 Interval history: pt more alert and less distention will continue slowly advancing diet and activity Exam Vital signs and Labs for Last 24 Hours: Temp Pulse Resp BP Pulse Ox 98.6 F 85 18 182/86 H 93 L 10/01/18 15:42 10/01/18 15:42 10/01/18 15:42 10/01/18 15:42 10/01/18 15:42 Laboratory Results - last 24 hr 09/30/18 16:33: POC Glucose 129 H 09/30/18 20:17: POC Glucose 140 H 10/01/18 05:43: POC Glucose 128 H 10/01/18 07:05: WBC 10.2, RBC 4.62, Hgb 12.0 L, Hct 37.1 L, MCV 80.4, MCH 26.1 L , MCHC 32.4, RDW 16.3, Plt Count 157 D, MPV 9.5, Neut % (Auto) 66.8, Lymph % (Auto) 12.8, [place] % (Auto) 14.1 H, Eos % (Auto) 5.7, Baso % (Auto) 0.6, Neut # (Auto) 6.8, Lymph # (Auto) 1.3, [place] # (Auto) 1.4 H, Eos # (Auto) 0.6 H, Baso # (Auto) 0.1 10/01/18 07:05: Sodium 137, Potassium 4.0, Chloride 105, Carbon Dioxide 25, Anion Gap 11.0, BUN 5 L, Creatinine 1.08, Estimated Creat Clear 63, Estimated GFR 66, Est GFR ( Amer) 80, Glucose 143 H, Calcium 7.8 L 10/01/18 11:12: POC Glucose 183 H I & O for Last 24 hours: Intake & Output 09/29/18 09/30/18 10/01/18 10/02/18 11:59 11:59 11:59 11:59 Intake Total 2714 / 2714 3347 / 3347 2367 / 2367 480 / 480 Output Total 1665 / 1665 1210 / 1210 3500 / 3500 Balance 1049 / 1049 2137 / 2137 -1133 / -1133 480 / 480 Weight 171 lb 8 oz 172 lb 1 oz 173 lb 6 oz - Constitutional no acute distress - *Routine HEENT Exam Head: Present: normocephalic Eye: Present: EOMI, PERRL ENT: Present: mucous membranes dry - *Routine Neck Exam Present: supple - *Routine Respiratory Exam Present: decreased breath sounds - *Routine Cardiovascular Exam Present: RRR, murmur - *Routine Abdominal Exam Present: soft - *Routine Extremities Exam Absent: calf tenderness - *Routine Skin Exam Present: intact - *Routine Neurological Exam Present: alert, CN II-XII intact - Routine Psychiatric Exam Present: unable to assess Assessment and Plan (1) SBO (small bowel obstruction) Current visit: Yes Status: Acute Category: Medical Code(s): K56.609 - Unspecified intestinal obstruction, unspecified as to partial versus complete obstruction (2) Schizophrenia Current visit: Yes Status: Acute Qualifiers: Schizophrenia type: unspecified Qualified Code(s): F20.9 - Schizophrenia, unspecified Category: Medical Code(s): F20.9 - Schizophrenia, unspecified (3) Renal insufficiency Current visit: Yes Status: Acute Category: Medical Code(s): N28.9 - Disorder of kidney and ureter, unspecified (4) Hypothyroidism (acquired) Current visit: Yes Status: Acute Category: Medical Code(s): E03.9 - Hypothyroidism, unspecified (5) Ileus Current visit: Yes Status: Acute Category: Medical Code(s): K56.7 - Ileus, unspecified
--- NOTE | 2018-10-02 06:50 | Progress Note ---
Subjective Patient reports: feels better Exam Vital signs and Labs for Last 24 Hours: Temp Pulse Resp BP Pulse Ox 98.2 F 78 16 141/66 H 93 L 10/02/18 04:00 10/02/18 04:00 10/02/18 04:00 10/02/18 04:00 10/02/18 04:00 Laboratory Results - last 24 hr 10/01/18 07:05: WBC 10.2, RBC 4.62, Hgb 12.0 L, Hct 37.1 L, MCV 80.4, MCH 26.1 L , MCHC 32.4, RDW 16.3, Plt Count 157 D, MPV 9.5, Neut % (Auto) 66.8, Lymph % (Auto) 12.8, [place] % (Auto) 14.1 H, Eos % (Auto) 5.7, Baso % (Auto) 0.6, Neut # (Auto) 6.8, Lymph # (Auto) 1.3, [place] # (Auto) 1.4 H, Eos # (Auto) 0.6 H, Baso # (Auto) 0.1 10/01/18 07:05: Sodium 137, Potassium 4.0, Chloride 105, Carbon Dioxide 25, Ani on Gap 11.0, BUN 5 L, Creatinine 1.08, Estimated Creat Clear 63, Estimated GFR 66, Est GFR ( Amer) 80, Glucose 143 H, Calcium 7.8 L 10/01/18 11:12: POC Glucose 183 H 10/01/18 16:40: POC Glucose 100 10/01/18 20:53: POC Glucose 162 H I & O for Last 24 hours: Intake & Output 09/29/18 09/30/18 10/01/18 10/02/18 11:59 11:59 11:59 11:59 Intake Total 2714 / 2714 3347 / 3347 2367 / 2367 3352 / 3352 Output Total 1665 / 1665 1209 / 2009 3500 / 3500 2350 / 2350 Balance 1049 / 1049 2137 / 1337 -1133 / -1133 1002 / 1002 Weight 171 lb 8 oz 172 lb 1 oz 173 lb 6 oz 169 lb 1 oz - Constitutional no acute distress - *Routine Abdominal Exam Present: soft Comments: Less distended Progress Note: A&P (1) SBO (small bowel obstruction) Status: Acute Current Visit: Yes (2) Schizophrenia Status: Acute Current Visit: Yes (3) Renal insufficiency Status: Acute Current Visit: Yes (4) Hypothyroidism (acquired) Status: Acute Current Visit: Yes (5) Ileus Status: Acute Assessment and plan: Slowly resolving Full liquids this a.m. Current Visit: Yes
[2018-10-02 07:30] LABS: Basophils % 0.1 % (0.1-2.0); Eosinophils # 0.5 K/mm3 (0.0-0.4); Eosinophils % 3.8 % (0.1-12.0); Hematocrit 35.2 % (42.0-52.0); Hemoglobin 11.5 g/dL (14.1-18.0); Lymphocytes # 1.3 K/mm3 (0.7-4.5); Lymphocytes % 9.2 % (10-50); Mean Corpuscular HGB Conc 32.6 g/dL (31.8-35.4); Mean Corpuscular Hemoglobin 25.4 pg (27.0-31.2); Mean Corpuscular Volume 78.1 fl (80-94); Mean Platelet Volume 6.6 fl (7.4-10.4); Monocytes # 0.9 K/mm3 (0.1-1.0); Monocytes % 6.7 % (1.7-9.3); Neutrophils % 80.2 % (37.0-80.0); Platelet Count 217 K/mm3 (142-424); Red Blood Count 4.51 M/mm3 (4.60-6.20); White Blood Count 13.7 K/mm3 (4.8-10.8)
[2018-10-02 07:36] LABS: Anion Gap 7.8 mEq/L (5-15); Calcium 8.1 mg/dL (8.5-10.1); Potassium 3.8 mmoL/L (3.5-5.1)
--- NOTE | 2018-10-02 08:49 | Progress Note ---
Internal Medicine - PN: Subj *Date: 10/02/18 *Time: 08:43 Interval history: Patient sitting up in the chair very talkative. Exam Vital signs and Labs for Last 24 Hours: Temp Pulse Resp BP Pulse Ox 98.2 F 91 H 18 158/68 H 97 10/02/18 08:00 10/02/18 08:00 10/02/18 08:00 10/02/18 08:00 10/02/18 08:00 Laboratory Results - last 24 hr 10/01/18 11:12: POC Glucose 183 H 10/01/18 16:40: POC Glucose 100 10/01/18 20:53: POC Glucose 162 H 10/02/18 07:15: WBC 13.7 H D, RBC 4.51 L, Hgb 11.5 L, Hct 35.2 L, MCV 78.1 L, MCH 25.4 L, MCHC 32.6, RDW 16.0, Plt Count 217 D, MPV 6.6 L, Neut % (Auto) 80.2 H, Lymph % (Auto) 9.2 L, [place] % (Auto) 6.7, Eos % (Auto) 3.8, Baso % (Auto) 0.1, Neut # (Auto) 11.0 H, Lymph # (Auto) 1.3, [place] # (Auto) 0.9, Eos # (Auto) 0.5 H, Baso # (Auto) 0.0 10/02/18 07:15: Sodium 136, Potassium 3.8, Chloride 104, Carbon Dioxide 28, Anion Gap 7.8, BUN 3 L D, Creatinine 1.12, Estimated Creat Clear 59, Estimated GFR 63, Est GFR ( Amer) 77, Glucose 158 H, Calcium 8.1 L I & O for Last 24 hours: Intake & Output 09/29/18 09/30/18 10/01/18 10/02/18 11:59 11:59 11:59 11:59 Intake Total 2714 / 2714 3347 / 3347 2367 / 2367 3832 / 3832 Output Total 1665 / 1665 1209 / 2009 3500 / 3500 2750 / 2750 Balance 1049 / 1049 2137 / 1337 -1133 / -1133 1082 / 1082 Weight 171 lb 8 oz 172 lb 1 oz 173 lb 6 oz 169 lb 1 oz - Constitutional no acute distress - *Routine HEENT Exam Head: Present: normocephalic Eye: Present: EOMI, PERRL ENT: Present: mucous membranes moist Comments: Blind - *Routine Neck Exam Present: supple. Absent: lymphadenopathy - *Routine Respiratory Exam Present: CTA bilaterally - *Routine Cardiovascular Exam Present: RRR - *Routine Abdominal Exam Present: soft, distended. Absent: tenderness Comments: Decreased bowel sounds,absent bs rt lower quad - *Routine Extremities Exam Absent: cyanosis, clubbing, edema - *Routine Skin Exam Present: warm. Absent: rash - *Routine Neurological Exam Present: alert - Routine Psychiatric Exam Present: cooperative Assessment and Plan (1) SBO (small bowel obstruction) Current visit: Yes Status: Acute Category: Medical Code(s): K56.609 - Unspecified intestinal obstruction, unspecified as to partial versus complete obstruction (2) Schizophrenia Current visit: Yes Status: Acute Qualifiers: Schizophrenia type: unspecified Qualified Code(s): F20.9 - Schizophrenia, unspecified Category: Medical Code(s): F20.9 - Schizophrenia, unspecified (3) Renal insufficiency Current visit: Yes Status: Acute Category: Medical Code(s): N28.9 - Disorder of kidney and ureter, unspecified (4) Hypothyroidism (acquired) Current visit: Yes Status: Acute Category: Medical Code(s): E03.9 - Hypothyroidism, unspecified (5) Ileus Current visit: Yes Status: Acute Category: Medical Code(s): K56.7 - Ileus, unspecified (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
--- NOTE | 2018-10-03 06:09 | Progress Note ---
Subjective Patient reports: no new complaints, flatus, bowel movement Exam Vital signs and Labs for Last 24 Hours: Temp Pulse Resp BP Pulse Ox 97.9 F 74 16 123/56 L 96 10/03/18 04:00 10/03/18 04:00 10/03/18 04:00 10/03/18 04:00 10/03/18 04:00 Laboratory Results - last 24 hr 10/02/18 05:58: POC Glucose 152 H 10/02/18 07:15: WBC 13.7 H D, RBC 4.51 L, Hgb 11.5 L, Hct 35.2 L, MCV 78.1 L, MCH 25.4 L, MCHC 32.6, RDW 16.0, Plt Count 217 D, MPV 6.6 L, Neut % (Auto) 80.2 H, Lymph % (Auto) 9.2 L, [place] % (Auto) 6.7, Eos % (Auto) 3.8, Baso % (Auto) 0.1, Neut # (Auto) 11.0 H, Lymph # (Auto) 1.3, [place] # (Auto) 0.9, Eos # (Auto) 0.5 H, Baso # (Auto) 0.0 10/02/18 07:15: Sodium 136, Potassium 3.8, Chloride 104, Carbon Dioxide 28, Anion Gap 7.8, BUN 3 L D, Creatinine 1.12, Estimated Creat Clear 59, Estimated GFR 63, Est GFR ( Amer) 77, Glucose 158 H, Calcium 8.1 L 10/02/18 11:07: POC Glucose 192 H 10/02/18 15:58: POC Glucose 123 H 10/02/18 21:47: POC Glucose 182 H 10/03/18 05:20: POC Glucose 134 H I & O for Last 24 hours: Intake & Output 09/30/18 10/01/18 10/02/18 10/03/18 11:59 11:59 11:59 11:59 Intake Total 3347 / 3347 2367 / 2367 3832 / 3832 1370 / 1370 Output Total 1209 3500 / 3500 2750 / 2750 600 / 600 Balance 2137 / 1337 -1133 / -1133 1082 / 1082 770 / 770 Weight 172 lb 1 oz 173 lb 6 oz 169 lb 1 oz 170 lb 2 oz - Constitutional no acute distress - *Routine Abdominal Exam Present: soft Comments: slightly more distended this AM Progress Note: A&P (1) SBO (small bowel obstruction) Status: Acute Current Visit: Yes (2) Schizophrenia Status: Acute Current Visit: Yes (3) Renal insufficiency Status: Acute Current Visit: Yes (4) Hypothyroidism (acquired) Status: Acute Current Visit: Yes (5) Ileus Status: Acute Assessment and plan: Severe and prolonged ileus of uncertain etiology. The patient does seem to be tolerating full liquids and is continuing to have evidence of bowel function. He does remain somewhat distended and is slightly more distended today on exam. 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
[2018-10-03 07:09] LABS: Basophils % 0.1 % (0.1-2.0); Eosinophils # 0.4 K/mm3 (0.0-0.4); Eosinophils % 2.3 % (0.1-12.0); Hematocrit 31.5 % (42.0-52.0); Hemoglobin 10.5 g/dL (14.1-18.0); Lymphocytes # 1.6 K/mm3 (0.7-4.5); Lymphocytes % 9.9 % (10-50); Mean Corpuscular HGB Conc 33.2 g/dL (31.8-35.4); Mean Corpuscular Hemoglobin 25.8 pg (27.0-31.2); Mean Corpuscular Volume 77.6 fl (80-94); Mean Platelet Volume 6.7 fl (7.4-10.4); Monocytes # 1.5 K/mm3 (0.1-1.0); Neutrophils # 12.8 K/mm3 (1.8-7.8); Neutrophils % 78.7 % (37.0-80.0); Platelet Count 201 K/mm3 (142-424); Red Blood Count 4.06 M/mm3 (4.60-6.20); Red Cell Distribution Width 15.8 % (11.5-17.5); White Blood Count 16.3 K/mm3 (4.8-10.8)
[2018-10-03 07:11] LABS: Anion Gap 10.7 mEq/L (5-15); Calcium 8.1 mg/dL (8.5-10.1); Potassium 3.7 mmoL/L (3.5-5.1)
--- NOTE | 2018-10-03 08:58 | Discharge Summary ---
General - General Admission date:: 09/24/18 Discharge date: 10/03/18 HPI HPI: this wm was sent from local nursing home with progressive abd pain with vomiting - rought in by ambulance from [facility]. He has schizophrenia and is a poor historian. There has been reported vomiting and abdominal cramping since yesterday. The patient's abdomen is noted to be quite distended. Currently denying any pain. Bowel movements are unknown. pt with sbo on ct and pt with continued sx and was admitted with ng tube and ivf and surg consult Hospital Course Hospital Course: ct abd:IMPRESSION: Moderate grade partial small bowel obstruction is suspected with questionable transition point in the left mid abdominal region within the mid to distal ileum. Scattered air-fluid levels are present in the small bowel with distended small bowel measuring up to 5 cm. There is also gastric distention with a fluid-filled stomach. Consider repeating exam with at least oral contrast. IV contrast may be utilized patient once the patient is hydrated if the renal function improves.. There is a small amount of ascites chest x ray:IMPRESSION: Interval insertion of nasogastric tube with some improvement in the small bowel gaseous distention. small bowel follow though:IMPRESSION: Delayed transit of oral contrast through the small bowel evident within the large bowel x 24 h. The small bowel is dilated throughout its course with no obvious transition points. Overall, the findings are more likely related to an ileus other than mechanical small bowel obstruction. abd xray:IMPRESSION: Interval improvement in small bowel dilatation. Oral contrast is not exclusively within the large bowel which is nondistended Discharge to [facility] on [facility] daily. Will check on patient on Saturday. reg diet Objective Vital signs: Temp Pulse Resp BP Pulse Ox 99.0 F 73 18 145/48 H 93 L 10/03/18 08:00 10/03/18 08:00 10/03/18 08:00 10/03/18 08:00 10/03/18 08:00 no acute distress - *Routine HEENT Exam Head: Present: normocephalic Eye: Present: PERRL ENT: Present: mucous membranes moist - *Routine Respiratory Exam Present: CTA bilaterally - *Routine Cardiovascular Exam Present: RRR - *Routine Abdominal Exam Present: soft, normoactive bowel sounds, distended - *Routine Extremities Exam Present: full ROM - *Routine Skin Exam Present: intact - *Routine Neurological Exam Present: alert, oriented X3 - Routine Psychiatric Exam Present: normal affect Results Labs on day of discharge: Labs from last 24 hours 10/03/18 10/03/18 10/03/18 06:48 06:48 05:20 WBC 16.3 H RBC 4.06 L Hgb 10.5 L Hct 31.5 L MCV 77.6 L MCH 25.8 L MCHC 33.2 RDW 15.8 Plt Count 201 MPV 6.7 L Neut % (Auto) 78.7 Lymph % (Auto) 9.9 L Gaston % (Auto) 9.0 Eos % (Auto) 2.3 Baso % (Auto) 0.1 Neut # (Auto) 12.8 H Lymph # (Auto) 1.6 Gaston # (Auto) 1.5 H Eos # (Auto) 0.4 Baso # (Auto) 0.0 Sodium 134 L Potassium 3.7 Chloride 101 Carbon Dioxide 26 Anion Gap 10.7 BUN 6 L D Creatinine 1.31 H Estimated Creat Clear 51 Estimated GFR 53 L Est GFR ( Amer) 64 Glucose 149 H POC Glucose 134 H Calcium 8.1 L 10/02/18 10/02/18 10/02/18 21:47 15:58 11:07 WBC RBC Hgb Hct MCV MCH MCHC RDW Plt Count MPV Neut % (Auto) Lymph % (Auto) Gaston % (Auto) Eos % (Auto) Baso % (Auto) Neut # (Auto) Lymph # (Auto) Gaston # (Auto) Eos # (Auto) Baso # (Auto) Sodium Potassium Chloride Carbon Dioxide Anion Gap BUN Creatinine Estimated Creat Clear Estimated GFR Est GFR ( Amer) Glucose POC Glucose 182 H 123 H 192 H Calcium 10/02/18 05:58 WBC RBC Hgb Hct MCV MCH MCHC RDW Plt Count MPV Neut % (Auto) Lymph % (Auto) Gaston % (Auto) Eos % (Auto) Baso % (Auto) Neut # (Auto) Lymph # (Auto) Gaston # (Auto) Eos # (Auto) Baso # (Auto) Sodium Potassium Chloride Carbon Dioxide Anion Gap BUN Creatinine Estimated Creat Clear Estimated GFR Est GFR ( Amer) Glucose POC Glucose 152 H Calcium - Additional Comments Rounded with Dr. 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 (7) Moderate intellectual disabilities Status: Acute Discharge Plan - Patient Discharge Instructions ACTIVITY: Continue current activity DIET: continue same diet Patient Instructions: DI for Ileus, DI for Small Bowel Obstruction, DI for Hypothyroidism - Follow up Plan Disposition: [facility] Home Medications: Home Medications Medication Instructions Recorded Confirmed Type Divalproex Sodium [Depakote ER] 500 mg PO HS 09/24/18 09/25/18 History Docusate Sodium [Dulcolax Stool 100 mg PO BID 09/24/18 09/25/18 History Softener] Levothyroxine Sodium 75 mcg PO DAILY 09/24/18 09/24/18 History [Levothyroxine 75mcg (0.075mg) Tab] OLANZapine [Zyprexa] 10 mg PO HS 09/24/18 09/25/18 History Polyethylene Glycol 3350 [Miralax 17 gm PO DAILYP PRN 09/24/18 09/24/18 History 17gm Packet] Rosuvastatin Calcium [Crestor] 20 mg PO HS 09/24/18 09/25/18 History Polyethylene Glycol 3350 [Miralax 17 gm PO DAILYP PRN 30 Days #1 10/03/18 Rx 17gm Packet] [email or web address] Prescriptions/Medication Reconciliation: New Polyethylene Glycol 3350 [Miralax 17gm Packet] 17 gm PO DAILYP PRN 30 Days #1 [email or web address] PRN Reason: Constipation Continued Rosuvastatin Calcium [Crestor] 20 mg PO HS Polyethylene Glycol 3350 [Miralax 17gm Packet] 17 gm PO DAILYP PRN PRN Reason: Constipation OLANZapine [Zyprexa] 10 mg PO HS Docusate Sodium [Dulcolax Stool Softener] 100 mg PO BID Divalproex Sodium [Depakote ER] 500 mg PO HS Levothyroxine Sodium [Levothyroxine 75mcg (0.075mg) Tab] 75 mcg PO DAILY
[2018-10-03 13:32] LABS: Eosinophils % 2 % (0-3); Lymphocytes % 6 % (10-50); Monocytes % 6 % (2-9); Neutrophils % 83 % (42-76); Total Cells Counted 100
[2018-10-03 13:33] LABS: Hypochromasia 1+
== END 2018-10-03 10:53 | DRG 389 ==
LOC: ER 13:37 → 2ND 17:02
PROVIDERS: ADMIT Emergency Medicine; ATTEND Emergency Medicine
CPT/HCPCS: J2405

== ENCOUNTER → 2019-07-19 20:00 | Outpatient (REF) | payer MEDICARE, MEDICAID, SELFPAY | LOC: LAB.DROPOF 20:00 | PROVIDERS: Visit Provider Emergency Medicine | DX: R09.89 Other specified symptoms and signs involving the circulatory and respiratory systems (principal) | CPT/HCPCS: 87275; 87276 ==

== ENCOUNTER → 2019-07-20 12:20 | Outpatient (CLI) | payer MEDICARE, MEDICAID, SELFPAY | LOC: LAB 12:21 → LAB.DROPOF 12:28 | PROVIDERS: Visit Provider Emergency Medicine | DX: J11.1 Influenza due to unidentified influenza virus with other respiratory manifestations (principal) | CPT/HCPCS: 87275; 87276 ==

== ENCOUNTER 2019-11-03 22:21 | Inpatient (IN) | payer MEDICARE, MEDICAID, SELFPAY ==
[2019-11-03 22:22] VITALS: BP 197/101; PULSE 120; RESP 17; O2SAT 96; BMI 29.0
--- NOTE | 2019-11-03 22:32 | CT_ITS ---
PROCEDURE: CT ABDOMEN PELVIS W CON CLINICAL INDICATION: abdominal disention Distended abdomen with vomiting [facility] abdomen pelvis wo con from 09/24/2018 TECHNIQUE: IV Contrast: 75ML OPTIRAY 350 Oral Contrast none Axial images obtained with sagittal and coronal reformats. All CT scans at the facility use one or more dose reduction, viz: automated exposure control, ma/kV adjustment per patient size (including targeted exams where dose is matched to indication, i.e. head), or iterative reconstruction technique. FINDINGS: LOWER THORAX: There is mild cardiomegaly with coronary artery calcification and fibrotic changes in the lung bases there is thickening of the distal esophagus with small hiatal hernia. On the most superior image there is lobular soft tissue density in the posterior mediastinum on the right and could be a reflection of a combination of the esophagus and lymph nodes. Chest CT may confirm. ABDOMEN & PELVIS: The liver, gallbladder, spleen, adrenal glands, and pancreas have an unremarkable appearance. There left-sided peripelvic renal cyst versus hydronephrosis. There are distended loops of small bowel with air-fluid levels. The terminal ileum does not appear distended. There is a moderate amount of retained colonic feces. Small bowel loops measure up to 4.4 cm. Gas and stool is present in the large bowel. There is narrowing of the sigmoid colon possibly due to an area of contraction/peristalsis measuring 3 cm in length no free air evident. There is a mild amount of free fluid in the pelvis. There is a Balbuena catheter present. No acute bony anomalies. IMPRESSION: 1. Moderate distension of the small bowel with air-fluid levels suggesting small bowel obstruction. There is however gas and stool also noted within the large bowel. An ileus is an additional consideration. Please correlate with clinical findings. 2. Increased soft tissue density in the right infrahilar region which may be root due to combination of mildly prominent lymph nodes in the esophagus. Chest CT with contrast may confirm Dictated by: Elver Veliz MD 11/04/2019 07:03 Electronically signed by Elver Veliz MD in [place] 11/04/2019 07:03
[2019-11-03 22:42] LABS: Basophils # 0.1 K/mm3 (0-0.2); Basophils % 0.3 % (0.1-2.0); Chloride 101 mmol/L (98-107); Eosinophils % 0.3 % (0.1-12.0); Hematocrit 44.5 % (42.0-52.0); Hemoglobin 14.2 g/dL (14.1-18.0); Lymphocytes # 1.9 K/mm3 (0.7-4.5); Mean Corpuscular HGB Conc 31.8 g/dL (31.8-35.4); Mean Corpuscular Hemoglobin 25.7 pg (27.0-31.2); Mean Corpuscular Volume 80.7 fl (80-94); Mean Platelet Volume 7.8 fl (7.4-10.4); Monocytes # 1.1 K/mm3 (0.1-1.0); Monocytes % 7.1 % (1.7-9.3); Neutrophils # 12.6 K/mm3 (1.8-7.8); Neutrophils % 80.3 % (37.0-80.0); Platelet Count 265 K/mm3 (142-424); Potassium 4.5 mmoL/L (3.5-5.1); Red Blood Count 5.51 M/mm3 (4.60-6.20); Red Cell Distribution Width 15.4 % (11.5-17.5); Sodium 137 mmol/L (136-145); White Blood Count 15.7 K/mm3 (4.8-10.8)
[2019-11-03 22:45] LABS: Alanine Aminotransferase 34 U/L (12-78); Alkaline Phosphatase 146 U/L (38-126); Amylase 40 U/L (30-110); Anion Gap 19.5 mEq/L (5-15); Aspartate Amino Transferase 28 U/L (17-59); Bilirubin,Total 0.8 mg/dl (0.2-1.3); Blood Urea Nitrogen 22 mg/dl (9-20); Calcium 9.4 mg/dl (8.4-10.2); Carbon Dioxide 21 mmol/L (22.0-30.0); Creatinine Clearance Estimated 60 mL/min (50-200); Estimated Glomerular Filt Rate 49 ml/min (>60); GFR (African American) 59 ML/MIN (>60); Glucose 234 mg/dl (74-100); Lipase 29 U/L (23-300)
[2019-11-03 22:46] LABS: Albumin Level 4.2 g/dl (3.5-5.0); Globulin 4.1 g/dL (1.3-3.2); Total Protein,Serum 8.3 g/dl (6.3-8.2)
[2019-11-03 22:51] LABS: MANUAL DIFFERENTIAL MANUAL DIFFERENTIAL (MANUAL DIFF)
[2019-11-03 23:21] LABS: Hypochromasia 1+; Lymphocytes % 15 % (10-50); Monocytes % 9 % (2-9); Neutrophils % 76 % (42-76); Platelet Estimate Normal; Total Cells Counted 100
[2019-11-03 23:22] VITALS: TEMP 37.4
[2019-11-03 23:25] LABS: Microscopic, Urine URINE MICROSCOPIC (MICROSCOPIC)
--- NOTE | 2019-11-03 23:27 | XR_ITS ---
PROCEDURE: XR CHEST PORTABLE CLINICAL HISTORY: vomiting Cough, vomiting, distension COMPARISON: [facility] XR acute abdomen series from 09/25/2018 CT ABDOMEN PELVIS W CON from 11/03/2019 FINDINGS: Exam is limited being under penetrated with low lung volumes. There is mild cardiomegaly without failure. Increased density is present in both lower lobes and may be rib reflection of the technique. Atelectasis or infiltrate is not excluded. IMPRESSION: Limited exam with poor inspiration and under penetration. Possible bibasilar airspace disease Dictated by: Elver Veliz MD 11/04/2019 05:56 Electronically signed by Elver Veliz MD in [place] 11/04/2019 05:56
[2019-11-03 23:28] LABS: Appearance,Urine CLEAR (Clear); Bilirubin,Urine Negative (Negative); Blood, Urine TRACE-I (Negative); Color,Urine YELLOW (Yellow); Glucose,Urine (UA) Negative (Negative); Ketones,Urine 1+ (Negative); Leukocyte Esterase,Urine 1+ (Negative); Nitrate,Urine POSITIVE (Negative); PH,Urine 5.5 (5.0-8.5); Protein,Urine 2+ (Negative); Specific Gravity, Urine >= 1.030 (1.005-1.030)
--- NOTE | 2019-11-03 23:40 | HMH.EDNVD ---
ED Disposition Clinical Impression: SBO (small bowel obstruction), Hypothyroidism (acquired), Severe sepsis with acute organ dysfunction, Septic shock Schizophrenia Qualifiers: Schizophrenia type: paranoid schizophrenia Qualified Code(s): F20.0 - Paranoid schizophrenia UTI (urinary tract infection) Qualifiers: Urinary tract infection type: site unspecified Hematuria presence: without hematuria Qualified Code(s): N39.0 - Urinary tract infection, site not specified Disposition: Admitted As Inpatient Condition on Discharge: Serious - Critical Care Critical Care Time: Yes Attestation: On 11/03/19, the high probability of a clinically significant, sudden or life threatening deterioration of the following system(s) required my full and direct attention, intervention and personal management. The time I documented below is in addition to time spent performing reported procedures but includes the following listed in this critical care notation. Total Critical Care Time: 60 Vital system(s) involved:: Shock (Septic) My critical care processes included: Assessment & monitoring of V/S, Initial and Re-exams, Data Review/Interpretation, Coordinating Care, Medication Orders and management, Documentation Medical Decision Making - Medical Records Medical records reviewed: Yes: I reviewed the patient's medical records. - Carlos Inquiry Pt receiving controlled substance: No Vital Signs: 11/03/19 22:22 11/03/19 23:22 11/04/19 00:21 Temperature 99.4 F Temperature Source Rectal Rectal Pulse Rate [Right Brachial] 120 H 99 H Respiratory Rate 17 17 Blood Pressure [Right Arm] 197/101 H 190/109 H Blood Pressure Mean [Right Arm] 133 136 Blood Pressure Source [Right Arm] Automatic Cuff Automatic Cuff Blood Pressure Position [Right Arm] Sitting Sitting 02 Sat by Pulse Oximetry 96 96 Oxygen Delivery Method Room Air Room Air 11/04/19 00:31 11/04/19 00:35 Temperature Temperature Source Pulse Rate [Right Brachial] 94 H 94 H Respiratory Rate 17 18 Blood Pressure [Right Arm] 166/93 H 166/93 H Blood Pressure Mean [Right Arm] 117 117 Blood Pressure Source [Right Arm] Blood Pressure Position [Right Arm] Sitting 02 Sat by Pulse Oximetry 95 94 L Oxygen Delivery Method Room Air Room Air - Lab Data Lab results reviewed: Yes: I reviewed the patient's lab results. Lab Results 11/03/19 22:28: WBC 15.7 H, RBC 5.51, Hgb 14.2, Hct 44.5, MCV 80.7, MCH 25.7 L, MCHC 31.8, RDW 15.4, Plt Count 265, MPV 7.8, Neut % (Auto) 80.3 H, Lymph % (Auto) 12.0, Andrew % (Auto) 7.1, Eos % (Auto) 0.3, Baso % (Auto) 0.3, Neut # (Auto) 12.6 H, Lymph # (Auto) 1.9, Andrew # (Auto) 1.1 H, Eos # (Auto) 0.0, Baso # (Auto) 0.1, Total Counted 100, Neutrophils % (Manual) 76, Lymphocytes % (Manual) 15, Monocytes % (Manual) 9, Platelet Estimate Normal, Hypochromasia 1+ 11/03/19 22:28: Sodium 137, Potassium 4.5, Chloride 101, Carbon Dioxide 21 L, Anion Gap 19.5 H, BUN 22 H, Creatinine 1.40 H, Estimated Creat Clear 60, Estimated GFR 49 L, Est GFR ( Amer) 59, Glucose 234 H, Calcium 9.4, Total Bilirubin 0.8, AST 28, ALT 34, Alkaline Phosphatase 146 H, Total Protein 8.3 H, Albumin 4.2, Globulin 4.1 H, Albumin/Globulin Ratio 1.0 L, Amylase 40, Lipase 29 11/03/19 23:19: Urine Color Yellow, Urine Appearance Clear, Urine pH 5.5, Ur Specific Stevens >= 1.030, Urine Protein 2+, Urine Glucose (UA) Negative, Urine Ketones 1+, Urine Blood Trace-i, Urine Nitrate Positive, Urine Bilirubin Negative, Urine Urobilinogen 1.0, Ur Leukocyte Esterase 1+ A, Urine RBC 3-5, Urine WBC 10-20, Urine Bacteria 2+, Hyaline Casts 3-5, Urine Mucus 1+ 11/04/19 00:20: Lactate 4.2 H Result diagrams: 11/03/19 22:28 11/03/19 22:28 Orders (Tests/Meds): ED MEDICATIONS Generic Name Dose Route Start Last Admin Trade Name Freq PRN Reason Stop Dose Admin Sodium Chloride 1,000 mls @ 999 mls/hr 11/03/19 22:45 11/03/19 23:01 Sod Chlor 0.9% 1000ml Bag IV 05/19/20 23:45 999 mls/hr .Q1H1M ELYSE
[2019-11-03 23:47] LABS: Bacteria,Urine 2+ /lpf; Mucus,Urine 1+ /lpf
[2019-11-04] VITALS (13 sets, daily range): BP systolic 110–190; BP diastolic 57–109; PULSE 71–107; RESP 16–28; TEMP 36.8–39.5; O2SAT 91–98; BMI 22.9; BMI 23.1
[2019-11-04 00:49] LABS: Lactic Acid 4.2 mmol/L (0.7-2.1)
--- NOTE | 2019-11-04 01:00 | PC.NURSE ---
Addendum entered by Heidy Lance RN 11/04/19 01:50: TOTAL TO BE INFUSED IS 2994 Original Note: SEPSIS FLUID BOLUS STARTED AT THIS TIME. TOTAL TO BE INFUSED IS 2997 ML (30 MG/KG). 1000 ML NS GIVEN PRIOR TO, SO 1997 ML WILL BE GIVEN AT THIS TIME.
--- NOTE | 2019-11-04 01:35 | PC.NURSE ---
ATTEMPTED NG PLACEMENT TWICE AT THIS TIME, NOT SUCCESSFUL
--- NOTE | 2019-11-04 02:30 | PC.NURSE ---
PT ARRIVED TO THE FLOOR VIA STRETCHER FROM ED @ [id number].
[2019-11-04 04:23] LABS: Reflex Lactic Add Lactic Reflex
[2019-11-04 05:35] LABS: Basophils % 0.3 % (0.1-2.0); Eosinophils % 0.1 % (0.1-12.0); Hematocrit 40.9 % (42.0-52.0); Hemoglobin 12.8 g/dL (14.1-18.0); Lymphocytes # 0.5 K/mm3 (0.7-4.5); Lymphocytes % 5.9 % (10-50); Mean Corpuscular HGB Conc 31.2 g/dL (31.8-35.4); Mean Corpuscular Hemoglobin 25.9 pg (27.0-31.2); Mean Corpuscular Volume 82.9 fl (80-94); Mean Platelet Volume 7.9 fl (7.4-10.4); Monocytes # 0.5 K/mm3 (0.1-1.0); Monocytes % 6.1 % (1.7-9.3); Neutrophils % 87.6 % (37.0-80.0); Platelet Count 196 K/mm3 (142-424); Red Blood Count 4.93 M/mm3 (4.60-6.20); Red Cell Distribution Width 15.4 % (11.5-17.5); White Blood Count 7.9 K/mm3 (4.8-10.8)
[2019-11-04 05:36] LABS: Chloride 106 mmol/L (98-107); Potassium 5.3 mmoL/L (3.5-5.1); Sodium 138 mmol/L (136-145)
[2019-11-04 05:38] LABS: Blood Urea Nitrogen 20 mg/dl (9-20); Creatinine Clearance Estimated 51 mL/min (50-200); Estimated Glomerular Filt Rate 53 ml/min (>60); GFR (African American) 64 ML/MIN (>60)
[2019-11-04 05:39] LABS: Anion Gap 15.3 mEq/L (5-15); Carbon Dioxide 22 mmol/L (22.0-30.0); Glucose 195 mg/dl (74-100); Lactic Acid Follow Up (RFLX 1) 3.4 mmol/L (0.7-2.1)
[2019-11-04 05:51] LABS: Calcium 8.4 mg/dl (8.4-10.2)
--- NOTE | 2019-11-04 07:00 | PC.NURSE ---
ALERT TO SELF AND PLACE BUT NOT TIME. LETHARGIC. PERRLA, POWER PLANT SUPERINTENDENT WEAK BUT EQUAL. LUNGS NOTED CLEAR PER AUSCULTATION, TOLERATED 2LNC WELL. PULSES +2. SKIN IS PALE AND COOL PER PALPATION, RECTAL TEMP NOTED 99.6-100. COOL WASH CLOTH APPLIED AND ROOM TEMP READJUSTED. ABDOMEN NOTED WITH DISTENSION, HYPOACTIVE BOWEL SOUNDS, FIRM AND NONTENDER PER PALPATION. PT IS PASSING FLATUS, NO BM THIS SHIFT. NPO DIET ORDER MAINTAINED. HUANG CATHETER PRESENT, PATENT AND DRAINING CLEAR, YELLOW URINE. WINTER AREA CDI, NO S/S OF INFECTION NOTED. TURNED AND REPOSITIONED Q2H. ORAL CARE PROVIDED Q2H THIS SHIFT, SINCE ADMISSION. VSS. WILL CONTINUE TO MONITOR.
[2019-11-04 07:26] LABS: Reflex Lactic (2 hrs) Add Lactic Reflex
--- NOTE | 2019-11-04 07:30 | PC.NURSE ---
DR. REYES MADE AWARE OF NEED FOR CONSULT. STATED I WILL BE IN A LITTLE BIT TO SEE THIS PATIENT.
--- NOTE | 2019-11-04 08:00 | XR_ITS ---
PROCEDURE: XR CHEST PORTABLE CLINICAL HISTORY: sob Shortness of air, small-bowel obstruction, sepsis COMPARISON: [facility] XR acute abdomen series from 09/25/2018 XR CHEST PORTABLE from 11/03/2019 CT ABDOMEN PELVIS W CON from 11/03/2019 FINDINGS: Mild cardiomegaly without failure . there are pulmonary fibrotic changes with peripheral increased density in both lungs. Right hemidiaphragm is elevated with right basilar atelectasis. No acute bony abnormalities. IMPRESSION: Pulmonary fibrosis with right basilar atelectasis Dictated by: Elver Veliz MD 11/04/2019 09:04 Electronically signed by Elver Veliz MD in [place] 11/04/2019 09:04
--- NOTE | 2019-11-04 08:06 | P.CONPHA_ITS ---
[facility] Pharmacy VTE Monitoring - Patient Demographics Admission date: 11/03/19 Report Date: 11/04/19 Time: 08:06 Allergies/Adverse Reactions: Patient Allergies No Known Allergies Allergy (Verified 10/11/19 13:14) Height: 1.85 m Weight: 78.67 kg Patient Problems: Current Active Problems SBO (small bowel obstruction) (Acute) Severe sepsis with acute organ dysfunction (Acute) Septic shock (Acute) UTI (urinary tract infection) (Acute) Schizophrenia (Chronic) Hypothyroidism (acquired) (Chronic) - VTE Risk Labs: VTE Related Lab Results Hgb 12.8 g/dL (14.1-18.0) L 11/04/19 04:40 Hct 40.9 % (42.0-52.0) L 11/04/19 04:40 Plt Count 196 K/mm3 (142-424) D 11/04/19 04:40 BUN 20 mg/dl (9-20) 11/04/19 04:40 Creatinine 1.30 mg/dl (0.66-1.25) H 11/04/19 04:40 Estimated Creat Clear 51 mL/min (50-200) 11/04/19 04:40 VTE Score: 3 VTE Risk Level: Low Risk - Prophylaxis VTE Prophylaxis Ordered?: Yes Types of VTE Prophylaxis: TEDS Knee High Location of Applied Device: Bilateral Lower Extremeties - VTE Diagnosis Confirmed Treatment or plan recommended: Continue Current Treatment
--- NOTE | 2019-11-04 08:50 | HMH.GSCON ---
*Admission Date: 11/03/19 *Reason for consult:: Small bowel obstruction versus ileus *History of present illness: This is a 78-year-old gentleman with a history of schizophrenia who presented to the emergency department (transfer from care facility) overnight with increased abdominal distention and emesis. He is a very poor historian but apparently developed increasing distention and emesis over the past 24 to 48 hours. Uncertain with regard to diarrhea. He was noted to be febrile in the emergency department. Multiple attempts at placement of nasogastric tube in emergency department unsuccessful secondary to lack of patient cooperation. A CT scan obtained in the emergency department did show moderate small bowel distention with some air-fluid levels. Air and feces noted within the colon. Review of Systems - Review of Systems Review of systems:: unable to obtain - *Neurologic Denies localized weakness, Denies headache(s), Denies seizure-like activity [facility] History Medical History: Reports:: Diabetes Mellitus Type 1, Diabetes Mellitus Type 2, Hyperlipidemia, Renal Disease Denies:: Cancer, Internal Pacemaker, MRSA *Have you ever received a pneumonia vaccine?: Yes *Have you received a flu vaccine this season?: Yes Other Medical History: Reports: Hypothyroidism, Thyroid Disease, Other Other Surgeries: No: Pacemaker Amputation: No Fractures: No - *Social History Smoking Status: Former smoker Tobacco Type: cigarettes # Packs/Day (cigarettes): 2 Alcohol Intake: never *Occupational Status:: disabled Housing: alf Household Members: other *Travel in the last 8 weeks: None Family Hx:: Unable to obtain Meds Home Medications Medication Instructions Recorded Confirmed Type Divalproex Sodium [Depakote ER] 500 mg PO HS 09/24/18 11/04/19 History Docusate Sodium [Dulcolax Stool 100 mg PO BID 09/24/18 11/04/19 History Softener] OLANZapine [Zyprexa] 10 mg PO BID 09/24/18 11/04/19 History polyethylene glycoL 3350 [Miralax 17 gm PO DAILYP PRN 09/24/18 11/04/19 History 17gm Packet] Acetaminophen 500 mg PO NEEDED PRN 11/03/19 11/03/19 History Atorvastatin Calcium [Atorvastatin 40 mg PO DAILY 11/03/19 11/04/19 History 40mg Tab] Insulin Lispro [Humalog] 100 unit SQ DAILY 11/03/19 11/04/19 History Metformin HCl [Glucophage Xr] 500 mg PO BID 11/03/19 11/04/19 History Insulin Glargine,Hum.rec.anlog 100 unit SQ HS 11/04/19 11/04/19 History [Lantus Insulin 100units/mL 10mL vial] Levothyroxine Sodium 100 mcg PO DAILY 11/04/19 11/04/19 History [Levothyroxine 100mcg (0.1MG) Tab] Lutein 10 mg PO DAILY 11/04/19 11/04/19 History Sennosides [Senna Lax] 8.6 mg PO BID 11/04/19 11/04/19 History Allergies Allergy/AdvReac Type Severity Reaction Status Date / Time No Known Allergies Allergy Verified 10/11/19 13:14 Exam Vital signs and Labs for Last 24 Hours: Temp Pulse Resp BP Pulse Ox 101.3 F H 106 H 28 H 145/90 H 93 L 11/04/19 08:00 11/04/19 08:00 11/04/19 08:00 11/04/19 08:00 11/04/19 08:00 Laboratory Results - last 24 hr 11/03/19 22:28: WBC 15.7 H, RBC 5.51, Hgb 14.2, Hct 44.5, MCV 80.7, MCH 25.7 L, MCHC 31.8, RDW 15.4, Plt Count 265, MPV 7.8, Neut % (Auto) 80.3 H, Lymph % (Auto) 12.0, Rogers % (Auto) 7.1, Eos % (Auto) 0.3, Baso % (Auto) 0.3, Neut # (Auto) 12.6 H, Lymph # (Auto) 1.9, Rogers # (Auto) 1.1 H, Eos # (Auto) 0.0, Baso # (Auto) 0.1, Total Counted 100, Neutrophils % (Manual) 76, Lymphocytes % (Manual) 15, Monocytes % (Manual) 9, Platelet Estimate Normal, Hypochromasia 1+ 11/03/19 22:28: Sodium 137, Potassium 4.5, Chloride 101, Carbon Dioxide 21 L, Anion Gap 19.5 H, BUN 22 H, Creatinine 1.40 H, Estimated Creat Clear 60, Estimated GFR 49 L, Est GFR ( Amer) 59, Glucose 234 H, Calcium 9.4, Total Bilirubin 0.8, AST 28, ALT 34, Alkaline Phosphatase 146 H, Total Protein 8.3 H, Albumin 4.2, Globulin 4.1 H, Albumin/Globulin Ratio 1.0 L, Amylase 40, Lipase 29 11/03/19 23:19: Urine Color Yel
--- NOTE | 2019-11-04 09:06 | HMH.HP ---
*Admission Date: 11/03/19 *Chief complaint: fever,uti,sbo *History of present illness: 78-year-old male with a history of schizophrenia who presented to the emergency department from [facility]. Per staff at [facility] patient had a increased abdominal distention and emesis. Patient is a very poor historian. Uncertain with regard to diarrhea.A CT scan obtained in the emergency department did show moderate small bowel distention with some air-fluid levels. Air and feces noted within the colon. Patient was not cooperative with NG tube placement. Patient was admitted for possible small bowel obstruction and surgery consult obtained. [facility] History I have reviewed the patient's past medical history: Yes Medical History: Reports:: Diabetes Mellitus Type 1, Diabetes Mellitus Type 2, Hyperlipidemia, Renal Disease Denies:: Cancer, Internal Pacemaker, MRSA *Have you ever received a pneumonia vaccine?: Yes *Have you received a flu vaccine this season?: Yes Other Medical History: Reports: Hypothyroidism, Thyroid Disease, Other Other Surgeries: No: Pacemaker Amputation: No Fractures: No - *Social History Smoking Status: Former smoker Tobacco Type: cigarettes # Packs/Day (cigarettes): 2 Alcohol Intake: never *Occupational Status:: disabled Housing: care home Household Members: other *Travel in the last 8 weeks: None Family Hx:: Unable to obtain Review of Systems - Review of Systems Review of systems:: unable to obtain, pertinent systems reviewed and negative unless documented below Meds Home Medications Medication Instructions Recorded Confirmed Type Divalproex Sodium [Depakote ER] 500 mg PO HS 09/24/18 11/04/19 History Docusate Sodium [Dulcolax Stool 100 mg PO BID 09/24/18 11/04/19 History Softener] OLANZapine [Zyprexa] 10 mg PO BID 09/24/18 11/04/19 History polyethylene glycoL 3350 [Miralax 17 gm PO DAILYP PRN 09/24/18 11/04/19 History 17gm Packet] Acetaminophen 500 mg PO NEEDED PRN 11/03/19 11/03/19 History Atorvastatin Calcium [Atorvastatin 40 mg PO DAILY 11/03/19 11/04/19 History 40mg Tab] Insulin Lispro [Humalog] 100 unit SQ DAILY 11/03/19 11/04/19 History Metformin HCl [Glucophage Xr] 500 mg PO BID 11/03/19 11/04/19 History Insulin Glargine,Hum.rec.anlog 100 unit SQ HS 11/04/19 11/04/19 History [Lantus Insulin 100units/mL 10mL vial] Levothyroxine Sodium 100 mcg PO DAILY 11/04/19 11/04/19 History [Levothyroxine 100mcg (0.1MG) Tab] Lutein 10 mg PO DAILY 11/04/19 11/04/19 History Sennosides [Senna Lax] 8.6 mg PO BID 11/04/19 11/04/19 History Allergies Allergy/AdvReac Type Severity Reaction Status Date / Time No Known Allergies Allergy Verified 10/11/19 13:14 Exam Vital signs and Labs for Last 24 Hours: Temp Pulse Resp BP Pulse Ox 102.6 F H 106 H 28 H 145/90 H 93 L 11/04/19 08:05 11/04/19 08:00 11/04/19 08:00 11/04/19 08:00 11/04/19 08:00 Laboratory Results - last 24 hr 11/03/19 22:28: WBC 15.7 H, RBC 5.51, Hgb 14.2, Hct 44.5, MCV 80.7, MCH 25.7 L, MCHC 31.8, RDW 15.4, Plt Count 265, MPV 7.8, Neut % (Auto) 80.3 H, Lymph % (Auto) 12.0, Piatt % (Auto) 7.1, Eos % (Auto) 0.3, Baso % (Auto) 0.3, Neut # (Auto) 12.6 H, Lymph # (Auto) 1.9, Piatt # (Auto) 1.1 H, Eos # (Auto) 0.0, Baso # (Auto) 0.1, Total Counted 100, Neutrophils % (Manual) 76, Lymphocytes % (Manual) 15, Monocytes % (Manual) 9, Platelet Estimate Normal, Hypochromasia 1+ 11/03/19 22:28: Sodium 137, Potassium 4.5, Chloride 101, Carbon Dioxide 21 L, Anion Gap 19.5 H, BUN 22 H, Creatinine 1.40 H, Estimated Creat Clear 60, Estimated GFR 49 L, Est GFR ( Amer) 59, Glucose 234 H, Calcium 9.4, Total Bilirubin 0.8, AST 28, ALT 34, Alkaline Phosphatase 146 H, Total Protein 8.3 H, Albumin 4.2, Globulin 4.1 H, Albumin/Globulin Ratio 1.0 L, Amylase 40, Lipase 29 11/03/19 23:19: Urine Color Yellow, Urine Appearance Clear, Urine pH 5.5, Ur Specific [place] >= 1.030, Urine Protein 2+, Urine Glucose (UA) Negative, Urine Ketones 1+, U
[2019-11-04 09:10] LABS: Lactic Acid Follow up (RFLX 2) 4.6 mmol/L (0.7-2.1)
--- NOTE | 2019-11-04 10:14 | SW/DCPLANNER ---
This patient currently resides at [facility]. I have spoke with Malka from [facility] regarding this patient. Malka has stated that patient is [facility] level of care. I will continue to update Malka regarding this patient.
--- NOTE | 2019-11-04 12:43 | PC.NURSE ---
Pt back to floor at this time. Temp at this time, 99.2, rectally. Bed alarm in place for pt's safety. Pt resting comfortably w/ no needs voiced.
--- NOTE | 2019-11-04 13:39 | HMH.PHAINT ---
MEDICATION RECONCILIATION COMPLETED ON PATIENT USING MAR FROM SHELTER. -ARACELI VOGT, SHAINAD
--- NOTE | 2019-11-04 19:13 | PC.NURSE ---
report given to kimi
--- NOTE | 2019-11-04 19:38 | PC.NURSE ---
Multiple nurses attempted to place NG w/ no success. Pt became combative and was not tolerating insertion. Pt remains on 2 L O2 per nasal cannula. Abdomen remains tight, distended w/ hypoactive BS. Noted to be passing flatus. Balbuena cath to drain at bedside w/ terry colored urine.
--- NOTE | 2019-11-04 21:04 | XR_ITS ---
PROCEDURE: FL UPPER GI SMALL BOWEL CLINICAL INDICATION: SBO vs. ileus Abdominal distension, small-bowel obstruction versus ileus. COMPARISON: CT ABDOMEN PELVIS W CON from 11/03/2019 XR KUB from 11/04/2019 FINDINGS: Business Practices Officer exam demonstrates distended gas-filled loops of small and large bowel. Study is very limited due to the fact patient could not drink an adequate amount of contrast under fluoroscopy but had to resort to drinking contrast while sitting up in wheelchair. There is a small hiatal hernia. The stomach and duodenum have a grossly unremarkable appearance. There is moderate distention of the small bowel being in the proximal jejunum. The jejunum is mostly on the right side of the abdomen.. There is moderate delay in transit of the contrast through the small bowel with images performed after hours and by portable technique. There is distention of the small bowel to the mid ileal region with there does appear to be transition to nondistended small bowel.. Contrast was present in the large bowel on the 9 hour image obtained at 8 p.m.. On this image there was contrast present throughout the colon. IMPRESSION: Dilated small and large bowel. There is questionable transition point in the left mid abdominal region within the mid ileal area. Continued KUB follow-up recommended. Complete obstruction is not present. Dictated by: Elver Veliz MD 11/04/2019 23:49 Electronically signed by Elver Veliz MD in [facility] 11/04/2019 23:49
--- NOTE | 2019-11-05 | XR_ITS ---
PROCEDURE: XR KUB CLINICAL INDICATION: BOWEL OBSTRUCTION COMPARISON: CT ABDOMEN PELVIS W CON from 11/03/2019 XR KUB from 11/04/2019 FINDINGS: Contrast filled dilated large and small bowel once again noted. There is an irregular area of narrowing involving the small bowel in the left lower quadrant similar to the 8 p.m. KUB on the small-bowel series. Unfortunately, fluoroscopy could not be performed. A stricture is a consideration. IMPRESSION: Possible stricture in the small bowel in the left lower quadrant causing partial small bowel obstruction. Dictated by: Elver Veliz MD 11/05/2019 06:52 Electronically signed by Elver Veliz MD in [facility] 11/05/2019 06:52
[2019-11-05 00:45] LABS: Adenovirus F 40/41, stool Not Detected (NotDetected); Astrovirus Not Detected (NotDetected); Campylobacter Not Detected (NotDetected); Clostridium Difficile A/B, PCR Not Detected (NotDetected); Cryptosporidium Not Detected (NotDetected); Cyclospora Cayetanesis Not Detected (NotDetected); Entamoeba histolytica Not Detected (NotDetected); Enteroaggregative E coli Not Detected (NotDetected); Enteropathogenic E coli Not Detected (NotDetected); Enterotoxigenic E coli Not Detected (NotDetected); Giardia lamblia Not Detected (NotDetected); Norovirus Not Detected (NotDetected); Plesimonas Shigalloides, PCR Not Detected (NotDetected); Rotavirus A Not Detected (NotDetected); Salmonella, PCR Not Detected (NotDetected); Sapovirus Not Detected (NotDetected); Shiga-like toxin E coli Not Detected (NotDetected); Shigella Enterovasive E coli Not Detected (NotDetected); Vibrio Cholerae Not Detected (NotDetected); Vibrio, PCR Not Detected (NotDetected); Yersinia Entercolitica, PCR Not Detected (NotDetected)
[2019-11-05 04:00] VITALS: BP 122/74; PULSE 80; RESP 20; TEMP 37; O2SAT 97
--- NOTE | 2019-11-05 04:19 | PC.NURSE ---
patient has had two loose stools this shift, sample send to lab for diarrhea panel. will continue to monitor.
[2019-11-05 05:24] VITALS: BMI 23.3
--- NOTE | 2019-11-05 06:00 | XR_ITS ---
PROCEDURE: XR ACUTE ABDOMEN SERIES CLINICAL INDICATION: sbo vs. ileus COMPARISON: XR KUB from 11/04/2019 XR KUB from 11/05/2019 FINDINGS: Frontal view of the chest shows pulmonary fibrosis with cardiomegaly and mild right basilar atelectasis or infiltrate. Upright and supine views of the abdomen show a moderate amount of residual contrast within the colon with some residual contrast within the small bowel.. There remains gaseous distention of the small bowel which has shown some improvement since the pre small-bowel series exam IMPRESSION: 1. Pulmonary fibrosis with right lower lobe infiltrate. 2. Continued gaseous distention of the small bowel which appears somewhat improved with increasing amount of contrast within the large bowel Dictated by: Elver Veliz MD 11/05/2019 06:47 Electronically signed by Elver Veliz MD in [facility] 11/05/2019 06:47
[2019-11-05 06:30] LABS: Basophils # 0.1 K/mm3 (0-0.2); Basophils % 0.6 % (0.1-2.0); Eosinophils # 0.1 K/mm3 (0.0-0.4); Eosinophils % 1.4 % (0.1-12.0); Hematocrit 33.5 % (42.0-52.0); Hemoglobin 10.7 g/dL (14.1-18.0); Lymphocytes # 1.2 K/mm3 (0.7-4.5); Lymphocytes % 16.2 % (10-50); Mean Corpuscular Hemoglobin 26.3 pg (27.0-31.2); Mean Corpuscular Volume 82.1 fl (80-94); Mean Platelet Volume 7.6 fl (7.4-10.4); Monocytes # 0.7 K/mm3 (0.1-1.0); Monocytes % 8.8 % (1.7-9.3); Neutrophils # 5.6 K/mm3 (1.8-7.8); Neutrophils % 72.9 % (37.0-80.0); Platelet Count 169 K/mm3 (142-424); Red Blood Count 4.08 M/mm3 (4.60-6.20); Red Cell Distribution Width 15.6 % (11.5-17.5); White Blood Count 7.6 K/mm3 (4.8-10.8)
[2019-11-05 06:31] LABS: Chloride 108 mmol/L (98-107); Potassium 3.9 mmoL/L (3.5-5.1); Sodium 141 mmol/L (136-145)
[2019-11-05 06:33] LABS: Lactic Acid 1.1 mmol/L (0.7-2.1)
[2019-11-05 06:34] LABS: Anion Gap 10.9 mEq/L (5-15); Blood Urea Nitrogen 19 mg/dl (9-20); Carbon Dioxide 26 mmol/L (22.0-30.0); Creatinine Clearance Estimated 52 mL/min (50-200); Estimated Glomerular Filt Rate 53 ml/min (>60); GFR (African American) 64 ML/MIN (>60)
--- NOTE | 2019-11-05 06:34 | HMH.GSPN ---
Subjective Narrative: He states that he feels a little bit better . He is apparently yet to have definitive evidence of bowel function. Exam Vital signs and Labs for Last 24 Hours: Temp Pulse Resp BP Pulse Ox 98.6 F 80 20 122/74 97 11/05/19 04:00 11/05/19 04:00 11/05/19 04:00 11/05/19 04:00 11/05/19 04:00 Laboratory Results - last 24 hr 11/04/19 08:30: Lactate 4.6 H 11/05/19 00:25: Stl Aeromonas (PCR) Not detected, Stl C. cayetanensis PCR Not detected, Stool Rotavirus (PCR) Not detected, Stl Adenov F 40/41 PCR Not detected, Stool Astrovirus (PCR) Not detected, Stool Campylobacter PCR Not detected, Stl C.difficile Tox PCR Not detected, Stool Cryptosporidium PCR Not detected, Stl E.coli Shiga Tox PCR Not detected, Stool E coli O157 PCR Not detected, Stl Enterotoxigenic E PCR Not detected, Stool EPEC (PCR) Not detected, Stool EAEC (PCR) Not detected, Stl E. histolytica PCR Not detected, Stool Giardia Lamblia PCR Not detected, Stool Salmonella PCR Not detected, Stool Sapovirus (PCR) Not detected, Stl P. shigelloides PCR Not detected, Stl Shigella/EIEC PCR Not detected, St Y.enterocolitica PCR Not detected, Stool Vibrio (PCR) Not detected, Stl Vibrio cholerae PCR Not detected, Stl Norovirus GI/GII PCR Not detected 11/05/19 06:15: WBC 7.6, RBC 4.08 L, Hgb 10.7 L, Hct 33.5 L, MCV 82.1, MCH 26.3 L, MCHC 32.0, RDW 15.6, Plt Count 169, MPV 7.6, Neut % (Auto) 72.9, Lymph % (Auto) 16.2, [place] % (Auto) 8.8, Eos % (Auto) 1.4, Baso % (Auto) 0.6, Neut # (Auto) 5.6, Lymph # (Auto) 1.2, [place] # (Auto) 0.7, Eos # (Auto) 0.1, Baso # (Auto) 0.1 I & O for Last 24 hours: Intake & Output 11/02/19 11/03/19 11/04/19 11/05/19 11:59 11:59 11:59 11:59 Intake Total 0 / 0 0 / 0 Output Total 950 / 950 Balance 0 / 0 -950 / -950 Weight 173 lb 7 oz 176 lb 9 oz Microbiology Reports for the Last 24 Hours: Microbiology 11/03/19 23:19 Urine,Catheterized Urine Culture - Preliminary Radiology Reports for the Last 24 Hours: The patient small bowel series completed yesterday showed very slow transit; however, contrast has been noted within the colon which does effectively rule out a complete obstruction. He did have some evidence of transition within the small bowel and a partially-obstructing lesion versus stricture cannot be ruled out. - Constitutional no acute distress - *Routine Cardiovascular Exam Present: RRR - *Routine Abdominal Exam Present: soft, distended (Significant distention remains) Progress Note: A&P (1) SBO (small bowel obstruction) Status: Acute Assessment and plan: Severe sepsis-induced ileus is likely a significant attributing factor; however, a partial obstruction secondary to lesion/stricture within the small bowel cannot be definitively ruled out based upon current films. He certainly does not have a complete obstruction as contrast from the small bowel series is within the colon. Given the patient's significant comorbid conditions, I believe the risks associated with operative intervention (without evidence of complete obstruction) outweigh the benefits. 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
[2019-11-05 06:35] LABS: Calcium 8.3 mg/dl (8.4-10.2); Glucose 128 mg/dl (74-100)
[2019-11-05 08:00] VITALS: BP 143/63; PULSE 84; RESP 18; TEMP 36.4; O2SAT 100; O2SAT 97
[2019-11-05 08:37] VITALS: O2SAT 87
--- NOTE | 2019-11-05 09:04 | HMH.ACPN2 ---
Internal Medicine - PN: Subj *Date: 11/05/19 *Time: 09:04 Exam Vital signs and Labs for Last 24 Hours: Temp Pulse Resp BP Pulse Ox 97.6 F 84 18 143/63 H 87 L 11/05/19 08:00 11/05/19 08:00 11/05/19 08:00 11/05/19 08:00 11/05/19 08:37 Laboratory Results - last 24 hr 11/03/19 23:19: Urine Color Yellow, Urine Appearance Clear, Urine pH 5.5, Ur Specific [place] >= 1.030, Urine Protein 2+, Urine Glucose (UA) Negative, Urine Ketones 1+, Urine Blood Trace-i, Urine Nitrate Positive, Urine Bilirubin Negative, Urine Urobilinogen 1.0, Ur Leukocyte Esterase 1+ A, Urine RBC 3-5, Urine WBC 10-20, Urine Bacteria 2+, Hyaline Casts 3-5, Urine Mucus 1+ 11/04/19 08:30: Lactate 4.6 H 11/05/19 00:25: Stl Aeromonas (PCR) Not detected, Stl C. cayetanensis PCR Not detected, Stool Rotavirus (PCR) Not detected, Stl Adenov F 40/41 PCR Not detected, Stool Astrovirus (PCR) Not detected, Stool Campylobacter PCR Not detected, Stl C.difficile Tox PCR Not detected, Stool Cryptosporidium PCR Not detected, Stl E.coli Shiga Tox PCR Not detected, Stool E coli O157 PCR Not detected, Stl Enterotoxigenic E PCR Not detected, Stool EPEC (PCR) Not detected, Stool EAEC (PCR) Not detected, Stl E. histolytica PCR Not detected, Stool Giardia Lamblia PCR Not detected, Stool Salmonella PCR Not detected, Stool Sapovirus (PCR) Not detected, Stl P. shigelloides PCR Not detected, Stl Shigella/EIEC PCR Not detected, St Y.enterocolitica PCR Not detected, Stool Vibrio (PCR) Not detected, Stl Vibrio cholerae PCR Not detected, Stl Norovirus GI/GII PCR Not detected 11/05/19 06:15: WBC 7.6, RBC 4.08 L, Hgb 10.7 L, Hct 33.5 L, MCV 82.1, MCH 26.3 L, MCHC 32.0, RDW 15.6, Plt Count 169, MPV 7.6, Neut % (Auto) 72.9, Lymph % (Auto) 16.2, [place] % (Auto) 8.8, Eos % (Auto) 1.4, Baso % (Auto) 0.6, Neut # (Auto) 5.6, Lymph # (Auto) 1.2, [place] # (Auto) 0.7, Eos # (Auto) 0.1, Baso # (Auto) 0.1 11/05/19 06:15: Sodium 141, Potassium 3.9 D, Chloride 108 H, Carbon Dioxide 26, Anion Gap 10.9, BUN 19, Creatinine 1.30 H, Estimated Creat Clear 52, Estimated GFR 53 L, Est GFR ( Amer) 64, Glucose 128 H, Calcium 8.3 L 11/05/19 06:15: Lactate 1.1 I & O for Last 24 hours: Intake & Output 11/02/19 11/03/19 11/04/19 11/05/19 11:59 11:59 11:59 11:59 Intake Total 0 / 0 3794 / 3794 Output Total 950 / 950 Balance 0 / 0 2844 / 2844 Weight 173 lb 7 oz 176 lb 9 oz Microbiology Reports for the Last 24 Hours: Microbiology 11/03/19 23:19 Urine,Catheterized Urine Culture - Preliminary Gram Negative Rods - Constitutional no acute distress, chronically ill appearing - *Routine HEENT Exam Head: Present: normocephalic ENT: Present: mucous membranes moist Comments: Patient is blind in both eyes - *Routine Neck Exam Present: supple. Absent: lymphadenopathy - *Routine Respiratory Exam Present: wheezes, diminished air movement - *Routine Cardiovascular Exam Present: RRR - *Routine Abdominal Exam Present: soft, normoactive bowel sounds. Absent: tenderness - *Routine Extremities Exam Present: normal capillary refill. Absent: cyanosis, clubbing, edema - *Routine Skin Exam Present: warm. Absent: rash - *Routine Neurological Exam Present: alert - Routine Psychiatric Exam Present: unable to assess Assessment and Plan (1) SBO (small bowel obstruction) Current visit: Yes Status: Acute Category: Medical Code(s): K56.609 - Unspecified intestinal obstruction, unspecified as to partial versus complete obstruction (2) UTI (urinary tract infection) Current visit: Yes Status: Acute Qualifiers: Urinary tract infection type: site unspecified Hematuria presence: without hematuria Qualified Code(s): N39.0 - Urinary tract infection, site not specified Category: Medical Code(s): N39.0 - Urinary tract infection, site not specified (3) Schizophrenia Current visit: Yes Status: Chronic Qualifiers: Schizophrenia type:
--- NOTE | 2019-11-05 12:02 | PC.NURSE ---
Spoke w/ guardianBaljinder via telephone to update on pt's current status and admission.
--- NOTE | 2019-11-05 13:55 | PC.NURSE ---
Has rested at intervals this shift. Remains on 2 L O2 per nasal cannula, room air sat obtained this AM and found to be 87%. Has had one med size mancera liquid BM thus far this shift. Passing flatus. Abdomen remains distended/round, pt denies pain. Pt NPO. IVF infusing per MAR. Pt has had one partial bed bath this shift. Is not able to assist staff with repositioning while in bed. Staff have turned and repositioned pt Q2H. No s/s of skin breakdown at this time. Bed alarm in place for pt's safety. Will continue to monitor.
[2019-11-05 16:00] VITALS: BP 116/52; PULSE 76; RESP 20; TEMP 36.6; O2SAT 97
[2019-11-05 19:37] VITALS: BP 148/72; PULSE 90; RESP 20; TEMP 36.5; O2SAT 97
[2019-11-05 21:10] VITALS: O2SAT 97
[2019-11-06] VITALS (7 sets, daily range): BP systolic 150–182; BP diastolic 61–77; PULSE 77–90; RESP 17–22; TEMP 36.6–36.8; O2SAT 89–99; BMI 23.5
--- NOTE | 2019-11-06 04:00 | PC.NURSE ---
Addendum entered by Goldie Alexander RN 11/06/19 04:17: VSS. ORAL CARE PERFORMED [id number]. Original Note: A&O TO NAME, BIRTHDAY, AND PLACE. TOLERATED 2L OF NASAL CANNULA WELL THROUGHOUT SHIFT. RESPIRATIONS REGULAR AND UNLABORED. LUNG SOUNDS BILATERALLY CLEAR. NONPRODUCTIVE COUGH PRESENT. HEART RATE REGULAR. NO EDEMA PRESENT. PT TURNED Q2 HOURS TO HELP PREVENT SKIN BREAKDOWN DUE TO LIMITED MOBILITY. NO S/S OF SKIN BREAKDOWN NOTED. PT PULLED OUT IV BY ACCIDENT AND A NEW IV WAS INSERTED. CATHETER INTACT FROM OLD IV. KOBAN AND DRESSING APPLIED. ABDOMEN SOFT AND DISTENDED. BOWEL SOUNDS HEARD IN ALL 4 QUADRANTS WITH AN EXCESSIVE AMOUNT OF GAS NOTED IN THE RLQ. INDWELLING CATHETER INTACT. URINE DRAINAGE APPROPRIATELY WITH TUBING FREE OF KINKS. BRIGHT YELLOW AND CLEAR. NO ODOR PRESENT. NO BM NOTED THIS SHIFT. HAND MAT MAKING MACHINE TENDER EQUAL. EYES BRISK AND REACTIVE TO LIGHT. BED ALARM IN PLACE TO PROMOTE SAFETY. IVF PER AUG. PT HAS REMAINED NPO. PT RESTING COMFORTABLY IN BED. BED IN LOWEST POSITION. CALL LIGHT WITHIN REACH. NO CONCERNS AT THIS TIME. WILL CONTINUE TO MONITOR.
--- NOTE | 2019-11-06 06:00 | XR_ITS ---
PROCEDURE: XR ACUTE ABDOMEN SERIES CLINICAL INDICATION: sbo vs. ileus COMPARISON: XR ACUTE ABDOMEN SERIES from 11/05/2019 FINDINGS: There has been interval progression of remaining small bowel contrast into the colon since yesterday's acute abdominal series radiographs. Contrast opacifies the most of the colon at this time with filling of the appendix is well. Mild gaseous distention of what appears to be an elongated sigmoid colon. Few mildly dilated loops of small bowel remain in the mid abdomen. IMPRESSION: Interval progression of small bowel contrast into the colon, findings suggesting an ileus is most likely consideration. Dictated by: Dr. Robin Cardona MD 11/06/2019 07:[address] Robin Cardona MD in [place] 11/06/2019 07:50
--- NOTE | 2019-11-06 06:49 | P.PN_ITS ---
Subjective Patient reports: feels better Narrative: he states he feels a little better per nursing, he has had a few BMs over the last 24 hours...mostly the contrast . Exam Vital signs and Labs for Last 24 Hours: Temp Pulse Resp BP Pulse Ox 98.0 F 90 22 150/77 H 89 L 11/06/19 04:00 11/06/19 04:00 11/06/19 04:00 11/06/19 04:00 11/06/19 04:04 Laboratory Results - last 24 hr 11/03/19 23:19: Urine Color Yellow, Urine Appearance Clear, Urine pH 5.5, Ur Specific [place] >= 1.030, Urine Protein 2+, Urine Glucose (UA) Negative, Urine Ketones 1+, Urine Blood Trace-i, Urine Nitrate Positive, Urine Bilirubin Negative, Urine Urobilinogen 1.0, Ur Leukocyte Esterase 1+ A, Urine RBC 3-5, Urine WBC 10-20, Urine Bacteria 2+, Hyaline Casts 3-5, Urine Mucus 1+ I & O for Last 24 hours: Intake & Output 11/03/19 11/04/19 11/05/19 11/06/19 11:59 11:59 11:59 11:59 Intake Total 0 / 0 3794 / 3794 1444 / 1444 Output Total 950 / 950 Balance 0 / 0 2844 / 2844 1444 / 1444 Weight 173 lb 7 oz 176 lb 9 oz 177 lb 4 oz Microbiology Reports for the Last 24 Hours: Microbiology 11/04/19 00:20 Blood Blood Culture - Preliminary NO GROWTH AFTER 48 HOURS 11/04/19 00:20 Blood Blood Culture - Preliminary NO GROWTH AFTER 48 HOURS 11/03/19 23:19 Urine,Catheterized Urine Culture - Preliminary Gram Negative Rods - Constitutional no acute distress - *Routine Respiratory Exam Absent: respiratory distress - *Routine Cardiovascular Exam Present: RRR - *Routine Abdominal Exam Present: soft, distended Comments: he remains distended; however, this is slightly imporoved...somewhat softer Progress Note: A&P (1) SBO (small bowel obstruction) Status: Acute Assessment and plan: likely secondary to severe sepsis-induced ileus...slowly improving...no evidence of complete obstruction. 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
[2019-11-06 08:43] LABS: Basophils % 0.4 % (0.1-2.0); Eosinophils # 0.2 K/mm3 (0.0-0.4); Eosinophils % 2.3 % (0.1-12.0); Hematocrit 32.8 % (42.0-52.0); Hemoglobin 10.9 g/dL (14.1-18.0); Lymphocytes # 1.2 K/mm3 (0.7-4.5); Lymphocytes % 12.8 % (10-50); Mean Corpuscular HGB Conc 33.2 g/dL (31.8-35.4); Mean Corpuscular Hemoglobin 26.7 pg (27.0-31.2); Mean Corpuscular Volume 80.5 fl (80-94); Mean Platelet Volume 7.7 fl (7.4-10.4); Monocytes # 0.7 K/mm3 (0.1-1.0); Monocytes % 7.2 % (1.7-9.3); Neutrophils # 7.2 K/mm3 (1.8-7.8); Neutrophils % 77.3 % (37.0-80.0); Platelet Count 209 K/mm3 (142-424); Red Blood Count 4.08 M/mm3 (4.60-6.20); Red Cell Distribution Width 15.7 % (11.5-17.5); White Blood Count 9.3 K/mm3 (4.8-10.8)
[2019-11-06 08:48] LABS: Chloride 109 mmol/L (98-107); Sodium 143 mmol/L (136-145)
[2019-11-06 08:49] LABS: Potassium 3.8 mmoL/L (3.5-5.1)
--- NOTE | 2019-11-06 08:49 | HMH.ACPN2 ---
Internal Medicine - PN: Subj *Date: 11/06/19 *Time: 11:51 Interval history: 78-year-old male patient sitting up in bed, he is more alert this morning. Alert and oriented x1, pleasantly confused. Urine culture grew E. coli, will change Invanz to Rocephin. Surgery has seen: likely secondary to severe sepsis-induced ileus...slowly improving...no evidence of complete obstruction. clear liquids cautiously serial exams Exam Vital signs and Labs for Last 24 Hours: Temp Pulse Resp BP Pulse Ox 98.2 F 80 17 166/73 H 97 11/06/19 07:55 11/06/19 07:55 11/06/19 07:55 11/06/19 07:55 11/06/19 07:55 Laboratory Results - last 24 hr 11/06/19 08:35: WBC 9.3, RBC 4.08 L, Hgb 10.9 L, Hct 32.8 L, MCV 80.5, MCH 26.7 L, MCHC 33.2, RDW 15.7, Plt Count 209, MPV 7.7, Neut % (Auto) 77.3, Lymph % (Auto) 12.8, [place] % (Auto) 7.2, Eos % (Auto) 2.3, Baso % (Auto) 0.4, Neut # (Auto) 7.2, Lymph # (Auto) 1.2, [place] # (Auto) 0.7, Eos # (Auto) 0.2, Baso # (Auto) 0.0 I & O for Last 24 hours: Intake & Output 11/03/19 11/04/19 11/05/19 11/06/19 23:59 23:59 23:59 23:59 Intake Total 2150 / 2150 2215 / 3088 993 / 993 Output Total 650 / 950 300 / 300 550 / 550 Balance 1500 / 1200 1915 / 2788 443 / 443 Weight 220 lb 174 lb 2.643 oz 176 lb 9 oz 177 lb 4 oz Microbiology Reports for the Last 24 Hours: Microbiology 11/03/19 23:19 Urine,Catheterized Urine Culture - Final Escherichia coli 11/04/19 00:20 Blood Blood Culture - Preliminary NO GROWTH AFTER 48 HOURS 11/04/19 00:20 Blood Blood Culture - Preliminary NO GROWTH AFTER 48 HOURS - Constitutional no acute distress - *Routine HEENT Exam Head: Present: normocephalic ENT: Present: mucous membranes moist Comments: Bilat Blindness - *Routine Neck Exam Present: supple, full ROM, trachea midline. Absent: JVD - *Routine Respiratory Exam Present: wheezes - *Routine Cardiovascular Exam Present: RRR - *Routine Abdominal Exam Present: soft, distended - *Routine Extremities Exam Present: pulses intact, calf tenderness - *Routine Skin Exam Present: intact - *Routine Neurological Exam Present: alert - Routine Psychiatric Exam Present: unable to assess Assessment and Plan (1) SBO (small bowel obstruction) Current visit: Yes Status: Acute Category: Medical Code(s): K56.609 - Unspecified intestinal obstruction, unspecified as to partial versus complete obstruction (2) UTI (urinary tract infection) Current visit: Yes Status: Acute Qualifiers: Urinary tract infection type: site unspecified Hematuria presence: without hematuria Qualified Code(s): N39.0 - Urinary tract infection, site not specified Category: Medical Code(s): N39.0 - Urinary tract infection, site not specified (3) Schizophrenia Current visit: Yes Status: Chronic Qualifiers: Schizophrenia type: paranoid schizophrenia Qualified Code(s): F20.0 - Paranoid schizophrenia Category: Medical Code(s): F20.9 - Schizophrenia, unspecified (4) Ileus Current visit: No Status: Acute Category: Medical Code(s): K56.7 - Ileus, unspecified (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 - Assessment and plan all Dx Assessment and Plan for all problems:: Discussed patient with willie Vizcarra
[2019-11-06 08:51] LABS: Blood Urea Nitrogen 14 mg/dl (9-20); Creatinine Clearance Estimated 62 mL/min (50-200); Estimated Glomerular Filt Rate 65 ml/min (>60); GFR (African American) 78 ML/MIN (>60)
[2019-11-06 08:52] LABS: Anion Gap 11.8 mEq/L (5-15); Calcium 8.2 mg/dl (8.4-10.2); Carbon Dioxide 26 mmol/L (22.0-30.0); Glucose 144 mg/dl (74-100)
--- NOTE | 2019-11-06 10:16 | SW/DCPLANNER ---
Updated patient information will be faxed to [facility] today. Patient does reside at [facility] and they will accept back once ready for discharge.
--- NOTE | 2019-11-06 14:08 | DIET.NUTRFU ---
Advancing to clears today, has tolerated first two meals fair-well. BG moderate- ~150. Weight is stable. Will continue to monitor.
--- NOTE | 2019-11-06 16:42 | PC.NURSE ---
patient has had a good day. has had no complaints. has tolerated clear liquid diet well. has been alert and oriented x3 able to give date, month, year, location of place, and person. bowel sounds active. turned q2h. vitals stable. will continue to monitor.
[2019-11-06 18:06] LABS: POC Glucose,Bedside 129 (70-110)
[2019-11-06 20:50] LABS: POC Glucose,Bedside 215 (70-110)
[2019-11-07] VITALS (7 sets, daily range): BP systolic 144–155; BP diastolic 61–79; PULSE 69–79; RESP 17–20; TEMP 36.6–37.1; O2SAT 89–98; BMI 23.6
--- NOTE | 2019-11-07 03:53 | PC.NURSE ---
Pt A&O to person, month, and facility. With orientation questioning, pt states he is in a hospital but thinks he is in [place]. Pt also stated Rodney Aguirre with president and did not know the year/date/day of week. But reported it was October and acknowledged his birthday was around the corner . Pt has denied any pain, nausea, or vomiting. No BM thus far, but pt has active BS x4 quads and continues to be distended but soft. Pt has passed flatus several times this shift. Pt has tolerated Clear liquid diet well, PO intake staggered and given small amounts often while awake. Oral care provided 3x this shift and gums, tongue brushed. Patent rico cath draining dark ylw urine. Lungs CTA with diminished bases. Pt continues on home O2 of 2L per NC, sats 97-99% while on O2. 89% room air sat obtained this shift. Pt has been turned q2 and repositioned PRN. VSS, call light within reach, will continue to monitor.
--- NOTE | 2019-11-07 06:00 | XR_ITS ---
PROCEDURE: XR ACUTE ABDOMEN SERIES Patient Age:78Y CLINICAL INDICATION: sbo vs. ileus Abdominal distension resolving obstruction or ileus COMPARISON: ABDPELWO CT abdomen pelvis wo con from 09/24/2018 AAS XR acute abdomen series from 09/25/2018 ABD2V XR abdomen min 2V from 09/29/2018 CT ABDOMEN PELVIS W CON from 11/03/2019 FL UPPER GI SMALL BOWEL from 11/04/2019 XR KUB from 11/04/2019 XR CHEST PORTABLE from 11/04/2019 XR KUB from 11/05/2019 XR ACUTE ABDOMEN SERIES from 11/05/2019 XR ACUTE ABDOMEN SERIES from 11/06/2019 FINDINGS: Today's studies include: Supine and upright abdomen along with upright CXR Background: Patient is upper GI and small bowel series on 11/04/2019 which accounts for the presence of barium. Small bowel loops were prominently dilated at that time and there were slow progression of barium with question of the mid ileal region of transition a moderate gas was through the transverse colon of large bowel on that November 03 exam but follow-up KUB studies on of evening of November 03 as well as subsequently KUB in the morning and evening 521 show slow progression of barium through small bowel filling the large bowel TODAY'S STUDY: Upright CXR: Extensive fibrotic and chronic changes changes throughout lung gunn bilateral, most evident towards lung bases. Slight additional hazy appearance towards the right base most likely atelectasis and chronic changes. Similar appearance is been seen on some previous studies, but hello difficult to exclude subtle infiltrate. Note additional prominence of pulmonary vascularity but no overt CHF. Heart normal size Abdomen images: Only minimal residual small-bowel dilatation remains. Of slight improvement since yesterday and marked improvement when compared back to initial studies at time of admission. But the barium is passed through the small-bowel and now outlines the entire large bowel. Appendix visualized and normal but diminishing barium at right colon with slight increased barium now seen throughout left colon of and towards rectum. The large bowel is not dilated. Minimal air-fluid levels at transverse colon upright image are unimpressive. Period mainly residual barium in the large bowel with scant if any solid stool. IMPRESSION: Subtle continued improvement. Slowly resolving small-bowel distention . Slow progression of barium into and through the large bowel. . Findings would be compatible with resolving ileus Upright chest: Prominent chronic and fibrotic changes throughout the lungs bilaterally-most evident towards lung bases. Slight increased hazy appearance towards right base of most likely reflecting atelectasis and less optimal inspiration today. (However difficult to totally exclude a subtle infiltrate right base) Dictated by: Kwame Angela MD 11/07/2019 08:21 Electronically signed by Kwame Angela MD in [facility] 11/07/2019 08:21
--- NOTE | 2019-11-07 06:15 | PC.NURSE ---
Radiology on floor for portable ABD series d/t pt's inability to walk or stand. Of note, pt's ABD is more tight and firm than previously assessed. Pt has had 1 mancera smear of stool on chux t/o this shift.
[2019-11-07 06:21] LABS: POC Glucose,Bedside 163 (70-110)
[2019-11-07 07:07] LABS: Basophils % 0.3 % (0.1-2.0); Eosinophils # 0.2 K/mm3 (0.0-0.4); Eosinophils % 2.5 % (0.1-12.0); Hematocrit 32.5 % (42.0-52.0); Hemoglobin 10.5 g/dL (14.1-18.0); Lymphocytes # 1.3 K/mm3 (0.7-4.5); Lymphocytes % 13.3 % (10-50); Mean Corpuscular HGB Conc 32.4 g/dL (31.8-35.4); Mean Corpuscular Hemoglobin 26.1 pg (27.0-31.2); Mean Corpuscular Volume 80.7 fl (80-94); Mean Platelet Volume 7.5 fl (7.4-10.4); Monocytes # 0.8 K/mm3 (0.1-1.0); Monocytes % 7.8 % (1.7-9.3); Neutrophils # 7.4 K/mm3 (1.8-7.8); Neutrophils % 76.1 % (37.0-80.0); Platelet Count 240 K/mm3 (142-424); Red Blood Count 4.02 M/mm3 (4.60-6.20); Red Cell Distribution Width 15.6 % (11.5-17.5); White Blood Count 9.7 K/mm3 (4.8-10.8)
[2019-11-07 07:10] LABS: Chloride 108 mmol/L (98-107); Potassium 3.6 mmoL/L (3.5-5.1); Sodium 139 mmol/L (136-145)
[2019-11-07 07:13] LABS: Anion Gap 8.6 mEq/L (5-15); Blood Urea Nitrogen 11 mg/dl (9-20); Carbon Dioxide 26 mmol/L (22.0-30.0); Creatinine Clearance Estimated 69 mL/min (50-200); Estimated Glomerular Filt Rate 72 ml/min (>60); GFR (African American) 87 ML/MIN (>60)
[2019-11-07 07:14] LABS: Glucose 153 mg/dl (74-100)
--- NOTE | 2019-11-07 09:46 | P.PN_ITS ---
Subjective Narrative: Patient states he feels pretty fair . Exam Vital signs and Labs for Last 24 Hours: Temp Pulse Resp BP Pulse Ox 98.0 F 69 18 148/61 H 97 11/07/19 07:19 11/07/19 07:19 11/07/19 07:19 11/07/19 07:19 11/07/19 07:19 Laboratory Results - last 24 hr 11/06/19 16:23: POC Glucose 129 H 11/06/19 20:24: POC Glucose 215 H 11/07/19 06:01: POC Glucose 163 H 11/07/19 06:55: WBC 9.7, RBC 4.02 L, Hgb 10.5 L, Hct 32.5 L, MCV 80.7, MCH 26.1 L, MCHC 32.4, RDW 15.6, Plt Count 240, MPV 7.5, Neut % (Auto) 76.1, Lymph % (Auto) 13.3, [place] % (Auto) 7.8, Eos % (Auto) 2.5, Baso % (Auto) 0.3, Neut # (Auto) 7.4, Lymph # (Auto) 1.3, [facility] [facility] # (Auto) 0.8, Eos # (Auto) 0.2, Baso # (Auto) 0.0 11/07/19 06:55: Sodium 139, Potassium 3.6, Chloride 108 H, Carbon Dioxide 26, Anion Gap 8.6, BUN 11, Creatinine 1.00, Estimated Creat Clear 69, Estimated GFR 72, Est GFR ( Amer) 87, Glucose 153 H, Calcium 8.0 L I & O for Last 24 hours: Intake & Output 11/04/19 11/05/19 11/06/19 11/07/19 11:59 11:59 11:59 11:59 Intake Total 0 / 0 3794 / 3794 1564 / 1564 3307 / 3307 Output Total 950 / 950 550 / 550 700 / 700 Balance 0 / 0 2844 / 2844 1014 / 1014 2607 / 2607 Weight 173 lb 7 oz 176 lb 9 oz 177 lb 4 oz 178 lb 6 oz Microbiology Reports for the Last 24 Hours: Microbiology 11/03/19 23:19 Urine,Catheterized Urine Culture - Final Escherichia coli Narrative: Somewhat somnolent. Abdomen distended but nontender. Progress Note: A&P (1) SBO (small bowel obstruction) Status: Acute Current Visit: Yes (2) UTI (urinary tract infection) Status: Acute Current Visit: Yes (3) Schizophrenia Status: Chronic Current Visit: Yes (4) Ileus Status: Acute Assessment and plan: Xrays show slowly resolving ileus. Contrast through to rectosigmoid. Still distended on exam however. Likely continue to limit to clear liquids today and possible slowly advance to full liquids tomorrow once better bowel function and less distension. 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
--- NOTE | 2019-11-07 10:44 | HMH.ACPN2 ---
Internal Medicine - PN: Subj *Date: 11/07/19 *Time: 10:44 Interval history: At laying in bed states no complaints today. Exam Vital signs and Labs for Last 24 Hours: Temp Pulse Resp BP Pulse Ox 98.0 F 69 18 148/61 H 97 11/07/19 07:19 11/07/19 07:19 11/07/19 07:19 11/07/19 07:19 11/07/19 07:19 Laboratory Results - last 24 hr 11/06/19 16:23: POC Glucose 129 H 11/06/19 20:24: POC Glucose 215 H 11/07/19 06:01: POC Glucose 163 H 11/07/19 06:55: WBC 9.7, RBC 4.02 L, Hgb 10.5 L, Hct 32.5 L, MCV 80.7, MCH 26.1 L, MCHC 32.4, RDW 15.6, Plt Count 240, MPV 7.5, Neut % (Auto) 76.1, Lymph % (Auto) 13.3, [place] % (Auto) 7.8, Eos % (Auto) 2.5, Baso % (Auto) 0.3, Neut # (Auto) 7.4, Lymph # (Auto) 1.3, [place] # (Auto) 0.8, Eos # (Auto) 0.2, Baso # (Auto) 0.0 11/07/19 06:55: Sodium 139, Potassium 3.6, Chloride 108 H, Carbon Dioxide 26, Anion Gap 8.6, BUN 11, Creatinine 1.00, Estimated Creat Clear 69, Estimated GFR 72, Est GFR ( Amer) 87, Glucose 153 H, Calcium 8.0 L I & O for Last 24 hours: Intake & Output 11/04/19 11/05/19 11/06/19 11/07/19 11:59 11:59 11:59 11:59 Intake Total 0 / 0 3794 / 3794 1564 / 1564 3307 / 3307 Output Total 950 / 950 550 / 550 700 / 700 Balance 0 / 0 2844 / 2844 1014 / 1014 2607 / 2607 Weight 173 lb 7 oz 176 lb 9 oz 177 lb 4 oz 178 lb 6 oz Microbiology Reports for the Last 24 Hours: Microbiology 11/03/19 23:19 Urine,Catheterized Urine Culture - Final Escherichia coli - Constitutional no acute distress, chronically ill appearing - *Routine HEENT Exam Head: Present: normocephalic ENT: Present: mucous membranes moist Comments: Blind in both eyes - *Routine Neck Exam Present: supple. Absent: lymphadenopathy - *Routine Respiratory Exam Present: wheezes - *Routine Cardiovascular Exam Present: RRR - *Routine Abdominal Exam Present: soft, normoactive bowel sounds. Absent: tenderness - *Routine Extremities Exam Absent: cyanosis, clubbing, edema - *Routine Skin Exam Present: warm. Absent: rash - *Routine Neurological Exam Present: alert - Routine Psychiatric Exam Present: normal affect Assessment and Plan (1) SBO (small bowel obstruction) Current visit: Yes Status: Acute Category: Medical Code(s): K56.609 - Unspecified intestinal obstruction, unspecified as to partial versus complete obstruction (2) UTI (urinary tract infection) Current visit: Yes Status: Acute Qualifiers: Urinary tract infection type: site unspecified Hematuria presence: without hematuria Qualified Code(s): N39.0 - Urinary tract infection, site not specified Category: Medical Code(s): N39.0 - Urinary tract infection, site not specified (3) Schizophrenia Current visit: Yes Status: Chronic Qualifiers: Schizophrenia type: paranoid schizophrenia Qualified Code(s): F20.0 - Paranoid schizophrenia Category: Medical Code(s): F20.9 - Schizophrenia, unspecified (4) Ileus Current visit: No Status: Acute Category: Medical Code(s): K56.7 - Ileus, unspecified (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 - Assessment and plan all Dx Assessment and Plan for all problems:: Discussed patient with Dr. Armas all orders per Dr. Armas Continue to follow with surgery recommendations
[2019-11-07 11:57] LABS: POC Glucose,Bedside 139 (70-110)
[2019-11-07 16:49] LABS: POC Glucose,Bedside 151 (70-110)
--- NOTE | 2019-11-07 17:44 | PC.NURSE ---
NO ACUTE CHANGES THIS SHIFT. PT DENIES PAIN AND N/V/D. PT TOLERATED CLEAR LIQUIDS AND APPETITE IS GOOD. PT HAD ONE LARGE BM THIS SHIFT.HUANG CATHETER IS DRAINING CLEAR YELLOW URINE WITHOUT PROBLEM. SAFETY MEASURES IN PLACE.WILL CONTINUE TO MONITOR
[2019-11-08] VITALS (7 sets, daily range): BP systolic 151–170; BP diastolic 65–74; PULSE 75–79; RESP 17–23; TEMP 36.6–36.8; O2SAT 85–98; BMI 23.8
[2019-11-08 00:52] LABS: POC Glucose,Bedside 160 (70-110)
--- NOTE | 2019-11-08 04:14 | PC.NURSE ---
No acute changes noted. Pt has slept most of shift. He is currently on O2 2L NC. RA 85% Lungs CTA. Pt uses O2 at [facility] facility. F/C draining to bedside. Pt has had 1 large BM this shift. No complaints stated. VSS. Call light within reach. Will continue to monitor.
[2019-11-08 06:19] LABS: POC Glucose,Bedside 132 (70-110)
[2019-11-08 07:06] LABS: Chloride 107 mmol/L (98-107); Sodium 138 mmol/L (136-145)
[2019-11-08 07:07] LABS: Potassium 3.5 mmoL/L (3.5-5.1)
[2019-11-08 07:09] LABS: Blood Urea Nitrogen 8 mg/dl (9-20); Creatinine Clearance Estimated 69 mL/min (50-200); Estimated Glomerular Filt Rate 72 ml/min (>60); GFR (African American) 87 ML/MIN (>60)
[2019-11-08 07:10] LABS: Anion Gap 7.5 mEq/L (5-15); Calcium 8.1 mg/dl (8.4-10.2); Carbon Dioxide 27 mmol/L (22.0-30.0); Glucose 138 mg/dl (74-100)
--- NOTE | 2019-11-08 09:10 | HMH.GSPN ---
Subjective Narrative: Once again patient states he is doing pretty fair . Has tolerated clear liquids without difficulty and has had several bowel movements over last 24 hours. Exam Vital signs and Labs for Last 24 Hours: Temp Pulse Resp BP Pulse Ox 97.9 F 75 18 170/72 H 95 11/08/19 07:30 11/08/19 07:30 11/08/19 07:30 11/08/19 07:30 11/08/19 08:00 Laboratory Results - last 24 hr 11/07/19 11:48: POC Glucose 139 H 11/07/19 16:42: POC Glucose 151 H 11/07/19 21:18: POC Glucose 160 H 11/08/19 05:59: POC Glucose 132 H 11/08/19 06:17: Sodium 138, Potassium 3.5, Chloride 107, Carbon Dioxide 27, Anion Gap 7.5, BUN 8 L D, Creatinine 1.00, Estimated Creat Clear 69, Estimated GFR 72, Est GFR ( Amer) 87, Glucose 138 H, Calcium 8.1 L I & O for Last 24 hours: Intake & Output 11/05/19 11/06/19 11/07/19 11/08/19 11:59 11:59 11:59 11:59 Intake Total 3794 / 3794 1564 / 1564 3307 / 3307 840 / 840 Output Total 950 / 950 550 / 550 700 / 700 1800 / 1800 Balance 2844 / 2844 1014 / 1014 2607 / 2607 -960 / -960 Weight 176 lb 9 oz 177 lb 4 oz 178 lb 6 oz 179 lb 9 oz - *Routine Abdominal Exam Present: normoactive bowel sounds, distended. Absent: tenderness Progress Note: A&P (1) SBO (small bowel obstruction) Status: Acute Current Visit: Yes (2) UTI (urinary tract infection) Status: Acute Current Visit: Yes (3) Schizophrenia Status: Chronic Current Visit: Yes (4) Ileus Status: Acute Assessment and plan: Advance to full liquids. Increase mobility. 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
--- NOTE | 2019-11-08 10:10 | HMH.ACPN2 ---
Internal Medicine - PN: Subj *Date: 11/08/19 *Time: 09:30 Interval history: pt states he is doing well today. states abd not tender Exam Vital signs and Labs for Last 24 Hours: Temp Pulse Resp BP Pulse Ox 97.9 F 75 18 170/72 H 95 11/08/19 07:30 11/08/19 07:30 11/08/19 07:30 11/08/19 07:30 11/08/19 08:00 Laboratory Results - last 24 hr 11/07/19 11:48: POC Glucose 139 H 11/07/19 16:42: POC Glucose 151 H 11/07/19 21:18: POC Glucose 160 H 11/08/19 05:59: POC Glucose 132 H 11/08/19 06:17: Sodium 138, Potassium 3.5, Chloride 107, Carbon Dioxide 27, Anion Gap 7.5, BUN 8 L D, Creatinine 1.00, Estimated Creat Clear 69, Estimated GFR 72, Est GFR ( Amer) 87, Glucose 138 H, Calcium 8.1 L I & O for Last 24 hours: Intake & Output 11/05/19 11/06/19 11/07/19 11/08/19 11:59 11:59 11:59 11:59 Intake Total 3794 / 3794 1564 / 1564 3307 / 3307 840 / 840 Output Total 950 / 950 550 / 550 700 / 700 1800 / 1800 Balance 2844 / 2844 1014 / 1014 2607 / 2607 -960 / -960 Weight 176 lb 9 oz 177 lb 4 oz 178 lb 6 oz 179 lb 9 oz - Constitutional no acute distress, chronically ill appearing - *Routine HEENT Exam Head: Present: normocephalic ENT: Present: mucous membranes moist Comments: blind in both eyes - *Routine Neck Exam Present: supple. Absent: lymphadenopathy - *Routine Respiratory Exam Present: CTA bilaterally - *Routine Cardiovascular Exam Present: RRR - *Routine Abdominal Exam Present: soft, normoactive bowel sounds, distended. Absent: tenderness - *Routine Extremities Exam Present: full ROM - *Routine Skin Exam Present: warm. Absent: rash - *Routine Neurological Exam Present: alert - Routine Psychiatric Exam Present: normal affect Assessment and Plan (1) SBO (small bowel obstruction) Current visit: Yes Status: Acute Category: Medical Code(s): K56.609 - Unspecified intestinal obstruction, unspecified as to partial versus complete obstruction (2) UTI (urinary tract infection) Current visit: Yes Status: Acute Qualifiers: Urinary tract infection type: site unspecified Hematuria presence: without hematuria Qualified Code(s): N39.0 - Urinary tract infection, site not specified Category: Medical Code(s): N39.0 - Urinary tract infection, site not specified (3) Schizophrenia Current visit: Yes Status: Chronic Qualifiers: Schizophrenia type: paranoid schizophrenia Qualified Code(s): F20.0 - Paranoid schizophrenia Category: Medical Code(s): F20.9 - Schizophrenia, unspecified (4) Ileus Current visit: No Status: Acute Category: Medical Code(s): K56.7 - Ileus, unspecified (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 - Assessment and plan all Dx Assessment and Plan for all problems:: discussed pt with dr lovelace, all orders per dr lovelace follow with surgery recommendations- [facility]
[2019-11-08 11:43] LABS: POC Glucose,Bedside 172 (70-110)
[2019-11-08 16:12] LABS: POC Glucose,Bedside 167 (70-110)
--- NOTE | 2019-11-08 17:31 | PC.NURSE ---
PT UP TO CHAIR FOR MOST OF SHIFT. PT DENIES PAIN. ABDOMEN REMAINS ROUND, DISTENDED, AND TENDER. PT DENIES PAIN. TOLERATED FULL LIQUID DIET WITHOUT PROBLEM AND DENIES N/V/D. PT HAD ONE LARGE BM THIS SHIFT. IV IS SECURE, PATENT, AND INFUSING IVF. HUANG CATHETER IS SECURE, PATENT, AND DRAINING CLEAR YELLOW URINE. SAFETY MEASURES IN PLACE, WILL CONTINUE TO MONITOR.
[2019-11-08 20:57] LABS: POC Glucose,Bedside 186 (70-110)
[2019-11-09] VITALS (7 sets, daily range): BP systolic 136–164; BP diastolic 54–80; PULSE 64–86; RESP 18–25; TEMP 36.6–37.9; O2SAT 90–100; BMI 24.1
[2019-11-09 05:44] LABS: POC Glucose,Bedside 133 (70-110)
--- NOTE | 2019-11-09 06:02 | PC.NURSE ---
Pt has rested well throughout shift. Has been febrile x1 this shift with temp of 100.2. Medicated per MAR. Pt has not voiced any concerns or discomfort at this time. Call light is within reach. Will continue to monitor.
[2019-11-09 06:16] LABS: Basophils % 0.4 % (0.1-2.0); Eosinophils # 0.6 K/mm3 (0.0-0.4); Eosinophils % 6.3 % (0.1-12.0); Hematocrit 29.5 % (42.0-52.0); Hemoglobin 9.8 g/dL (14.1-18.0); Lymphocytes # 1.5 K/mm3 (0.7-4.5); Lymphocytes % 16.9 % (10-50); Mean Corpuscular HGB Conc 33.1 g/dL (31.8-35.4); Mean Corpuscular Hemoglobin 26.1 pg (27.0-31.2); Mean Corpuscular Volume 78.9 fl (80-94); Mean Platelet Volume 7.2 fl (7.4-10.4); Monocytes # 0.9 K/mm3 (0.1-1.0); Neutrophils # 5.7 K/mm3 (1.8-7.8); Neutrophils % 66.3 % (37.0-80.0); Platelet Count 261 K/mm3 (142-424); Red Blood Count 3.74 M/mm3 (4.60-6.20); Red Cell Distribution Width 15.6 % (11.5-17.5); White Blood Count 8.6 K/mm3 (4.8-10.8)
[2019-11-09 06:20] LABS: Chloride 107 mmol/L (98-107); Potassium 3.3 mmoL/L (3.5-5.1); Sodium 138 mmol/L (136-145)
[2019-11-09 06:23] LABS: Anion Gap 7.3 mEq/L (5-15); Blood Urea Nitrogen 6 mg/dl (9-20); Carbon Dioxide 27 mmol/L (22.0-30.0); Creatinine Clearance Estimated 70 mL/min (50-200); Estimated Glomerular Filt Rate 72 ml/min (>60); GFR (African American) 87 ML/MIN (>60)
[2019-11-09 06:24] LABS: Calcium 7.6 mg/dl (8.4-10.2); Glucose 135 mg/dl (74-100)
--- NOTE | 2019-11-09 07:21 | P.PN_ITS ---
Subjective Narrative: Patient states that he feels pretty fair . Exam Vital signs and Labs for Last 24 Hours: Temp Pulse Resp BP Pulse Ox 100.2 F H 86 25 H 152/69 H 95 11/09/19 04:00 11/09/19 04:00 11/09/19 04:00 11/09/19 04:00 11/09/19 04:00 Laboratory Results - last 24 hr 11/08/19 11:16: POC Glucose 172 H 11/08/19 16:04: POC Glucose 167 H 11/08/19 19:58: POC Glucose 186 H 11/09/19 05:19: WBC 8.6, RBC 3.74 L, Hgb 9.8 L, Hct 29.5 L, MCV 78.9 L, MCH 26.1 L, MCHC 33.1, RDW 15.6, Plt Count 261, MPV 7.2 L, Neut % (Auto) 66.3, Lymph % (Auto) 16.9, [place] % (Auto) 10.0 H, Eos % (Auto) 6.3, Baso % (Auto) 0.4, Neut # (Auto) 5.7, Lymph # (Auto) 1.5, [place] # (Auto) 0.9, Eos # (Auto) 0.6 H, Baso # (Auto) 0.0 11/09/19 05:19: Sodium 138, Potassium 3.3 L, Chloride 107, Carbon Dioxide 27, Anion Gap 7.3, BUN 6 L, Creatinine 1.00, Estimated Creat Clear 70, Estimated GFR 72, Est GFR ( Amer) 87, Glucose 135 H, Calcium 7.6 L 11/09/19 05:35: POC Glucose 133 H I & O for Last 24 hours: Intake & Output 11/06/19 11/07/19 11/08/19 11/09/19 11:59 11:59 11:59 11:59 Intake Total 1564 / 1564 3307 / 3307 840 / 840 750 / 750 Output Total 550 / 550 700 / 700 1800 / 1800 1625 / 1625 Balance 1014 / 1014 2607 / 2607 -960 / -960 -875 / -875 Weight 177 lb 4 oz 178 lb 6 oz 179 lb 9 oz 182 lb 2 oz Microbiology Reports for the Last 24 Hours: Microbiology 11/04/19 00:20 Blood Blood Culture - Final NO GROWTH AFTER 5 DAYS 11/04/19 00:20 Blood Blood Culture - Final NO GROWTH AFTER 5 DAYS Narrative: Abdomen is slightly distended but soft. 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 Continue to limit to full liquids for now.
--- NOTE | 2019-11-09 07:35 | XR_ITS ---
PROCEDURE: XR ABDOMEN MIN 2V Patient Age:78Y CLINICAL INDICATION: ABDOMINAL DISTENSION COMPARISON: ABDPELWO CT abdomen pelvis wo con from 09/24/2018 SBFT FL small bowel follow through from 09/25/2018 CT ABDOMEN PELVIS W CON from 11/03/2019 XR CHEST PORTABLE from 11/04/2019 XR ACUTE ABDOMEN SERIES from 11/05/2019 XR ACUTE ABDOMEN SERIES from 11/06/2019 XR ACUTE ABDOMEN SERIES from 11/07/2019 FINDINGS: Acute abdominal series performed with flat and upright views of abdomen along with upright CXR FLAT AND UPRIGHT VIEWS ABDOMEN: Large bowel. We continue to see barium contrast throughout large bowel but there has been very slow progressive distal movement residual barium through large bowel. Specifically I would note that the density of the barium at the cecum and throughout the right colon diminished.. We no longer see contrast within the tip of the cecum and and barely appreciable faint residual contrast appendix... The barium has become slightly denser in the region of sigmoid colon reflecting its distal migration. Fairly empty rectum with only scant barium outlining rectum wall Small-bowel generous gas throughout with multiple persistent borderline/mildly distended small bowel loops; some of the more prominent loops the measuring just over 3 cm diameter. There has been slight improvement small-bowel gas and distention, compared back to 11/06/2019. A more definitive improvement when compared back to earlier CT abdomen studies both from October 2019 I would also note the patient had similar pattern of small-bowel distention September 2018 CT abdomen thus this may indeed be a recurrence or chronic type process September 2018... There is also a in September 2018 small-bowel series which favored ileus over obstruction However findings today would be compatible with an persistent underlying partial ileus of with the very slow progression of barium through the large bowel and the persistent small bowel distention. No large bowel dilatation- no appreciable point of mechanical restriction or bowel obstruction evident on these plain films.No free air beneath the diaphragm. At no significant calcifications UPRIGHT CXR: Again extensive chronic lung changes. Extensive chronic pleural and parenchymal changes. There does appear to be progressive bilateral pleural effusions on this study. Most evident on right. Today's upright CXR shows layer of loculated fluid extends along the entire lateral right chest wall of-this measures up to 1.6 cm thickness. Left chest also thin subtle layering of presumed fluid along the lateral left chest with fluid I believe collecting at the left cardiophrenic angle most notable feature on left. This bilateral pleural fluid as has slowly progressed over the course of multiple upright CXR studies.. Is there surprisingly minimal blunting at the CP angles associated (Comment:. This does appear to be a upright or at least semi-erect image, as there are air-fluid levels noted within transverse colon, but I am somewhat surprised that we do not see a gastric bubble, nor more evident dependent layering pleural fluid towards CP angle on this upright CXR) IMPRESSION: 1..Persistent diffuse small-bowel ileus. .. With very slow progressive opacities barium to large bowel evident . Generous gas throughout numerous loops generous caliber small bowel. Borderline/mildly distended small bowel. (Although suggestion slight improvement compared to November 05, with slight less small bowel distention.) ..Overall this appears to be a rather chronic recurrence ileus pattern&condition-- as has been seen on numerous 2018 and 2019 studies 2.. bilateral pleural effusions which have progressed over the
--- NOTE | 2019-11-09 08:47 | HMH.ACPN2 ---
Internal Medicine - PN: Subj *Date: 11/11/19 *Time: 06:54 Interval history: doing ok- more alert - abd distended Exam Vital signs and Labs for Last 24 Hours: Temp Pulse Resp BP Pulse Ox 97.9 F 64 18 136/54 L 98 11/09/19 07:58 11/09/19 07:58 11/09/19 07:58 11/09/19 07:58 11/09/19 07:58 Laboratory Results - last 24 hr 11/08/19 11:16: POC Glucose 172 H 11/08/19 16:04: POC Glucose 167 H 11/08/19 19:58: POC Glucose 186 H 11/09/19 05:19: WBC 8.6, RBC 3.74 L, Hgb 9.8 L, Hct 29.5 L, MCV 78.9 L, MCH 26.1 L, MCHC 33.1, RDW 15.6, Plt Count 261, MPV 7.2 L, Neut % (Auto) 66.3, Lymph % (Auto) 16.9, [place] % (Auto) 10.0 H, Eos % (Auto) 6.3, Baso % (Auto) 0.4, Neut # (Auto) 5.7, Lymph # (Auto) 1.5, [place] # (Auto) 0.9, Eos # (Auto) 0.6 H, Baso # (Auto) 0.0 11/09/19 05:19: Sodium 138, Potassium 3.3 L, Chloride 107, Carbon Dioxide 27, Anion Gap 7.3, BUN 6 L, Creatinine 1.00, Estimated Creat Clear 70, Estimated GFR 72, Est GFR ( Amer) 87, Glucose 135 H, Calcium 7.6 L 11/09/19 05:35: POC Glucose 133 H I & O for Last 24 hours: Intake & Output 11/06/19 11/07/19 11/08/19 11/09/19 11:59 11:59 11:59 11:59 Intake Total 1564 / 1564 3307 / 3307 840 / 840 750 / 750 Output Total 550 / 550 700 / 700 1800 / 1800 1625 / 1625 Balance 1014 / 1014 2607 / 2607 -960 / -960 -875 / -875 Weight 177 lb 4 oz 178 lb 6 oz 179 lb 9 oz 182 lb 2 oz Microbiology Reports for the Last 24 Hours: Microbiology 11/04/19 00:20 Blood Blood Culture - Final NO GROWTH AFTER 5 DAYS 11/04/19 00:20 Blood Blood Culture - Final NO GROWTH AFTER 5 DAYS - Constitutional no acute distress - *Routine HEENT Exam Head: Present: normocephalic Eye: Present: EOMI, PERRL ENT: Present: mucous membranes dry - *Routine Neck Exam Absent: JVD - *Routine Respiratory Exam Present: decreased breath sounds - *Routine Cardiovascular Exam Present: RRR - *Routine Abdominal Exam Present: distended. Absent: rebound - *Routine Extremities Exam Absent: calf tenderness - *Routine Skin Exam Present: intact - *Routine Neurological Exam Present: alert. Absent: motor deficit - Routine Psychiatric Exam Present: unable to assess Assessment and Plan (1) SBO (small bowel obstruction) Current visit: Yes Status: Acute Category: Medical Code(s): K56.609 - Unspecified intestinal obstruction, unspecified as to partial versus complete obstruction (2) UTI (urinary tract infection) Current visit: Yes Status: Acute Qualifiers: Urinary tract infection type: site unspecified Hematuria presence: without hematuria Qualified Code(s): N39.0 - Urinary tract infection, site not specified Category: Medical Code(s): N39.0 - Urinary tract infection, site not specified (3) Schizophrenia Current visit: Yes Status: Chronic Qualifiers: Schizophrenia type: paranoid schizophrenia Qualified Code(s): F20.0 - Paranoid schizophrenia Category: Medical Code(s): F20.9 - Schizophrenia, unspecified (4) Ileus Current visit: No Status: Acute Category: Medical Code(s): K56.7 - Ileus, unspecified (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
[2019-11-09 12:11] LABS: POC Glucose,Bedside 223 (70-110)
--- NOTE | 2019-11-09 15:10 | P.PN_ITS ---
Internal Medicine - PN: Subj *Date: 11/09/19 *Time: 15:10 Exam Vital signs and Labs for Last 24 Hours: Temp Pulse Resp BP Pulse Ox 97.9 F 64 18 136/54 L 98 11/09/19 07:58 11/09/19 07:58 11/09/19 07:58 11/09/19 07:58 11/09/19 08:00 Laboratory Results - last 24 hr 11/08/19 16:04: POC Glucose 167 H 11/08/19 19:58: POC Glucose 186 H 11/09/19 05:19: WBC 8.6, RBC 3.74 L, Hgb 9.8 L, Hct 29.5 L, MCV 78.9 L, MCH 26.1 L, MCHC 33.1, RDW 15.6, Plt Count 261, MPV 7.2 L, Neut % (Auto) 66.3, Lymph % (Auto) 16.9, [place] % (Auto) 10.0 H, Eos % (Auto) 6.3, Baso % (Auto) 0.4, Neut # (Auto) 5.7, Lymph # (Auto) 1.5, [place] # (Auto) 0.9, Eos # (Auto) 0.6 H, Baso # (Auto) 0.0 11/09/19 05:19: Sodium 138, Potassium 3.3 L, Chloride 107, Carbon Dioxide 27, Anion Gap 7.3, BUN 6 L, Creatinine 1.00, Estimated Creat Clear 70, Estimated GFR 72, Est GFR ( Amer) 87, Glucose 135 H, Calcium 7.6 L 11/09/19 05:35: POC Glucose 133 H 11/09/19 11:27: POC Glucose 223 H I & O for Last 24 hours: Intake & Output 11/06/19 11/07/19 11/08/19 11/09/19 23:59 23:59 23:59 23:59 Intake Total 1793 / 1913 2807 / 2807 1290 / 1290 3643 / 3643 Output Total 850 / 850 1075 / 1075 1800 / 2750 1700 / 1700 Balance 943 / 1063 1732 / 1732 -510 / -1460 194 / 194 Weight 80.399 kg 80.91 kg 81.448 kg 82.611 kg Microbiology Reports for the Last 24 Hours: Microbiology 11/04/19 00:20 Blood Blood Culture - Final NO GROWTH AFTER 5 DAYS 11/04/19 00:20 Blood Blood Culture - Final NO GROWTH AFTER 5 DAYS Assessment and Plan (1) SBO (small bowel obstruction) Current visit: Yes Status: Acute Category: Medical Code(s): K56.609 - Unspecified intestinal obstruction, unspecified as to partial versus complete obstruction (2) UTI (urinary tract infection) Current visit: Yes Status: Acute Qualifiers: Urinary tract infection type: site unspecified Hematuria presence: without hematuria Qualified Code(s): N39.0 - Urinary tract infection, site not specified Category: Medical Code(s): N39.0 - Urinary tract infection, site not specified (3) Schizophrenia Current visit: Yes Status: Chronic Qualifiers: Schizophrenia type: paranoid schizophrenia Qualified Code(s): F20.0 - Paranoid schizophrenia Category: Medical Code(s): F20.9 - Schizophrenia, unspecified (4) Ileus Current visit: No Status: Acute Category: Medical Code(s): K56.7 - Ileus, unspecified (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 The patient's infection will respond to the chosen ABx?: Yes Is the patient receiving the right drug, dose, and route?: Yes Could a more targeted ABx be ordered?: No
[2019-11-09 16:54] LABS: POC Glucose,Bedside 95 (70-110)
--- NOTE | 2019-11-09 17:57 | PC.NURSE ---
Has been up to chair majority of shift. Remains on 2 L O2 per nasal cannula. Denies pain. Tolerating full liquid diet w/o issue. Pt requires to be fed by staff. Has been incontinent of liquid mancera/yellow stool multiple times this shift. When transferring to chair from bed requires assistance x2 or more d/t weakness in legs. Is currently lying in bed resting. No needs voiced.
--- NOTE | 2019-11-09 19:14 | PC.NURSE ---
Pt's room air sat at rest = 88%
--- NOTE | 2019-11-09 19:15 | PC.NURSE ---
report given to kimi
[2019-11-09 21:44] LABS: POC Glucose,Bedside 187 (70-110)
[2019-11-10] VITALS (7 sets, daily range): BP systolic 128–151; BP diastolic 60–75; PULSE 70–82; RESP 18–22; TEMP 36.5–37.3; O2SAT 89–100; BMI 23.6
--- NOTE | 2019-11-10 04:39 | PC.NURSE ---
Pt is A&O to person, month, and general place of hospital. Pt could not state what hospital, city/state of location. Pt has denied any pain, nausea, or vomiting episodes. Pt has had 1 small and 1 large BM this shift thus far. Pt's stool was mancera and most recently medium brown in color and pasty in consistency. Pt voids via patent rico cath for strict I/O's. Lungs CTA, diminished bases and at times can have an increased resp rate and appears SOB in-between eating/drinking/conversation. Pt has continued with 2L per NC with a room air sat of 89% this shift. Pt is home O2 dependent of 2L. ABD is soft and non-tender although distended with active bowel sounds. Pt tolerated a few hours being up to chair on previous shift and was turned q2 while in bed this shift. Total basin bath and 2 linen changes completed thus far. call light within reach, will continue to monitor.
[2019-11-10 06:36] LABS: Chloride 106 mmol/L (98-107); Potassium 3.4 mmoL/L (3.5-5.1); Sodium 138 mmol/L (136-145)
[2019-11-10 06:39] LABS: Blood Urea Nitrogen 4 mg/dl (9-20); Creatinine Clearance Estimated 69 mL/min (50-200); Estimated Glomerular Filt Rate 81 ml/min (>60); GFR (African American) 98 ML/MIN (>60)
[2019-11-10 06:40] LABS: Anion Gap 6.4 mEq/L (5-15); Carbon Dioxide 29 mmol/L (22.0-30.0); Glucose 143 mg/dl (74-100)
[2019-11-10 06:48] LABS: POC Glucose,Bedside 155 (70-110)
--- NOTE | 2019-11-10 09:00 | HMH.ACPN2 ---
Internal Medicine - PN: Subj *Date: 11/10/19 *Time: 09:00 Interval history: 78-year-old male resting in bed quietly, awakens with verbal/tactile stimuli. Abdomen appears less distended today, bowel sounds active x4, and denies any needs at present Exam Vital signs and Labs for Last 24 Hours: Temp Pulse Resp BP Pulse Ox 98.8 F 75 18 151/70 H 100 11/10/19 07:34 11/10/19 07:34 11/10/19 07:34 11/10/19 07:34 11/10/19 07:34 Laboratory Results - last 24 hr 11/09/19 11:27: POC Glucose 223 H 11/09/19 16:39: POC Glucose 95 11/09/19 21:28: POC Glucose 187 H 11/10/19 06:11: Sodium 138, Potassium 3.4 L, Chloride 106, Carbon Dioxide 29, Anion Gap 6.4, BUN 4 L D, Creatinine 0.90, Estimated Creat Clear 69, Estimated GFR 81, Est GFR ( Amer) 98, Glucose 143 H, Calcium 8.0 L 11/10/19 06:16: POC Glucose 155 H I & O for Last 24 hours: Intake & Output 11/07/19 11/08/19 11/09/19 11/10/19 23:59 23:59 23:59 23:59 Intake Total 2807 / 2807 1290 / 1290 4182 / 4182 1758 / 1758 Output Total 1075 / 1075 1800 / 2750 2300 / 2300 476 / 476 Balance 1732 / 1732 -510 / -1460 1882 / 1882 1282 / 1282 Weight 178 lb 6 oz 179 lb 9 oz 182 lb 2 oz 178 lb 9 oz - Constitutional no acute distress - *Routine HEENT Exam Head: Present: normocephalic ENT: Present: mucous membranes dry Comments: Patient is blind - *Routine Neck Exam Present: trachea midline. Absent: JVD, tracheal deviation - *Routine Respiratory Exam Present: CTA bilaterally. Absent: accessory muscle use - *Routine Cardiovascular Exam Present: RRR, murmur - *Routine Abdominal Exam Present: normoactive bowel sounds, distended. Absent: tenderness - *Routine Extremities Exam Present: pulses intact - *Routine Skin Exam Present: intact, warm - *Routine Neurological Exam Present: alert - Routine Psychiatric Exam Present: unable to assess Assessment and Plan (1) SBO (small bowel obstruction) Current visit: Yes Status: Acute Category: Medical Code(s): K56.609 - Unspecified intestinal obstruction, unspecified as to partial versus complete obstruction (2) UTI (urinary tract infection) Current visit: Yes Status: Acute Qualifiers: Urinary tract infection type: site unspecified Hematuria presence: without hematuria Qualified Code(s): N39.0 - Urinary tract infection, site not specified Category: Medical Code(s): N39.0 - Urinary tract infection, site not specified (3) Schizophrenia Current visit: Yes Status: Chronic Qualifiers: Schizophrenia type: paranoid schizophrenia Qualified Code(s): F20.0 - Paranoid schizophrenia Category: Medical Code(s): F20.9 - Schizophrenia, unspecified (4) Ileus Current visit: No Status: Acute Category: Medical Code(s): K56.7 - Ileus, unspecified (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 - Assessment and plan all Dx Assessment and Plan for all problems:: Rounded with Dr. Armas, all orders per Dr. Armas 1. Awaiting surgical recommendations 2. NEAL Balbuena
--- NOTE | 2019-11-10 10:17 | SW/DCPLANNER ---
Addendum entered by Oriana Ash 11/11/19 17:03: I have informed Malka from [facility] that this patient is currently ready for discharge. Addendum entered by Oriana Ash 11/11/19 12:07: I have updated Malka from [facility] regarding this patient. 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 I will continue to update Malka from [facility] until this patient is ready for discharge. Discharge date is unknown at this time.
[2019-11-10 10:43] LABS: POC Glucose,Bedside 178 (70-110)
--- NOTE | 2019-11-10 15:07 | HMH.GSPN ---
Subjective Narrative: Patient states he feels pretty fair . Denies abdominal pain. Taking full liquid diet. Exam Vital signs and Labs for Last 24 Hours: Temp Pulse Resp BP Pulse Ox 98.8 F 75 18 151/70 H 100 11/10/19 07:34 11/10/19 07:34 11/10/19 07:34 11/10/19 07:34 11/10/19 07:34 Laboratory Results - last 24 hr 11/09/19 16:39: POC Glucose 95 11/09/19 21:28: POC Glucose 187 H 11/10/19 06:11: Sodium 138, Potassium 3.4 L, Chloride 106, Carbon Dioxide 29, Anion Gap 6.4, BUN 4 L D, Creatinine 0.90, Estimated Creat Clear 69, Estimated GFR 81, Est GFR ( Amer) 98, Glucose 143 H, Calcium 8.0 L 11/10/19 06:16: POC Glucose 155 H 11/10/19 10:35: POC Glucose 178 H I & O for Last 24 hours: Intake & Output 11/08/19 11/09/19 11/10/19 11/11/19 11:59 11:59 11:59 11:59 Intake Total 840 / 840 4393 / 4393 2297 / 2297 120 / 120 Output Total 1800 / 1800 1625 / 1625 1826 / 1826 Balance -960 / -960 2768 / 2768 471 / 471 120 / 120 Weight 179 lb 9 oz 182 lb 2 oz 178 lb 9 oz - *Routine Abdominal Exam Comments: Abdomen somewhat distended but nontender. 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 Will attempt to advance to bland diet.
--- NOTE | 2019-11-10 16:07 | PC.NURSE ---
Pt has slept most of this shift. Denies pain/shortness of breath. Urinary catheter d/c'd this shift without difficulty. One small bowel movement noted in brief. Pt's appetite has been decreased this shift, but is still drinking adequately.
[2019-11-10 16:12] LABS: POC Glucose,Bedside 134 (70-110)
[2019-11-10 21:59] LABS: POC Glucose,Bedside 150 (70-110)
[2019-11-11 03:50] VITALS: BP 178/82; PULSE 88; RESP 17; TEMP 36.7; O2SAT 99
--- NOTE | 2019-11-11 04:24 | PC.NURSE ---
All care provided by Elizabeth OLIVA was supervised by Mychal Fenton RN
--- NOTE | 2019-11-11 04:24 | PC.NURSE ---
Pt is A&O to person, current month, and is aware of being in the hospital although pt cannot remember the city or facility name. Pt has been turned q2 and repositioned prn, pt tolerates well. Pt received and total bed bath and linen change this shift. Lungs CTA, although diminished bases and audible wheezing noted at times. Pt continues home O2 on 2L NC with sats 99% and room air sat of 92%. ABD is soft, non-tender, and pt denies any N/V. Pt has had 1 soft, brown BM this shift. Pt is incontinent of bowel and bladder and has has a wet brief changed several times this shift. Left eye's sclera is slightly reddened with some crusting around lid, pt's face washed. +1 pitting edema noted to anterior of right foot. Call light within reach, bed alarm in use, and will continue to monitor pt.
[2019-11-11 04:58] VITALS: BMI 23.6
[2019-11-11 05:44] LABS: POC Glucose,Bedside 135 (70-110)
[2019-11-11 06:33] LABS: Chloride 103 mmol/L (98-107); Potassium 3.6 mmoL/L (3.5-5.1); Sodium 139 mmol/L (136-145)
[2019-11-11 06:36] LABS: Anion Gap 7.6 mEq/L (5-15); Blood Urea Nitrogen 4 mg/dl (9-20); Carbon Dioxide 32 mmol/L (22.0-30.0); Creatinine Clearance Estimated 69 mL/min (50-200); Estimated Glomerular Filt Rate 81 ml/min (>60); GFR (African American) 98 ML/MIN (>60); Glucose 143 mg/dl (74-100)
[2019-11-11 06:48] LABS: Calcium 8.4 mg/dl (8.4-10.2)
[2019-11-11 07:04] LABS: Basophils % 0.5 % (0.1-2.0); Eosinophils # 0.5 K/mm3 (0.0-0.4); Eosinophils % 7.8 % (0.1-12.0); Hematocrit 31.7 % (42.0-52.0); Hemoglobin 10.6 g/dL (14.1-18.0); Lymphocytes # 1.1 K/mm3 (0.7-4.5); Lymphocytes % 16.1 % (10-50); Mean Corpuscular HGB Conc 33.4 g/dL (31.8-35.4); Mean Corpuscular Hemoglobin 26.1 pg (27.0-31.2); Mean Corpuscular Volume 78.1 fl (80-94); Mean Platelet Volume 7.4 fl (7.4-10.4); Monocytes # 0.6 K/mm3 (0.1-1.0); Monocytes % 9.3 % (1.7-9.3); Neutrophils # 4.5 K/mm3 (1.8-7.8); Neutrophils % 66.3 % (37.0-80.0); Platelet Count 259 K/mm3 (142-424); Red Blood Count 4.06 M/mm3 (4.60-6.20); Red Cell Distribution Width 15.2 % (11.5-17.5); White Blood Count 6.9 K/mm3 (4.8-10.8)
[2019-11-11 07:41] VITALS: BP 143/53; PULSE 81; RESP 18; TEMP 36.9; O2SAT 95
--- NOTE | 2019-11-11 08:00 | PC.NURSE ---
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 Brittany Guerra RN was able to place #22g IV to R hand. Pt tolerated well.
--- NOTE | 2019-11-11 08:41 | HMH.GSPN ---
Subjective Patient reports: no new complaints, bowel movement Narrative: He states that he has had no nausea or vomiting. He seems to be tolerating small amounts of his bland diet . Exam Vital signs and Labs for Last 24 Hours: Temp Pulse Resp BP Pulse Ox 98.5 F 81 18 143/53 H 95 11/11/19 07:41 11/11/19 07:41 11/11/19 07:41 11/11/19 07:41 11/11/19 07:41 Laboratory Results - last 24 hr 11/10/19 10:35: POC Glucose 178 H 11/10/19 16:04: POC Glucose 134 H 11/10/19 21:45: POC Glucose 150 H 11/11/19 05:34: POC Glucose 135 H 11/11/19 06:00: Sodium 139, Potassium 3.6, Chloride 103, Carbon Dioxide 32 H, Anion Gap 7.6, BUN 4 L, Creatinine 0.90, Estimated Creat Clear 69, Estimated GFR 81, Est GFR ( Amer) 98, Glucose 143 H, Calcium 8.4 11/11/19 06:00: WBC 6.9, RBC 4.06 L, Hgb 10.6 L, Hct 31.7 L, MCV 78.1 L, MCH 26.1 L, MCHC 33.4, RDW 15.2, Plt Count 259, MPV 7.4, Neut % (Auto) 66.3, Lymph % (Auto) 16.1, [place] % (Auto) 9.3, Eos % (Auto) 7.8, Baso % (Auto) 0.5, Neut # (Auto) 4.5, Lymph # (Auto) 1.1, [place] # (Auto) 0.6, Eos # (Auto) 0.5 H, Baso # (Auto) 0.0 I & O for Last 24 hours: Intake & Output 11/08/19 11/09/19 11/10/19 11/11/19 11:59 11:59 11:59 11:59 Intake Total 840 / 840 4393 / 4393 2297 / 2297 1706 / 1706 Output Total 1800 / 1800 1625 / 1625 1826 / 1826 1500 / 1500 Balance -960 / -960 2768 / 2768 471 / 471 206 / 206 Weight 179 lb 9 oz 182 lb 2 oz 178 lb 9 oz 178 lb 9.014 oz - Constitutional no acute distress - *Routine Respiratory Exam Absent: respiratory distress - *Routine Cardiovascular Exam Present: RRR - *Routine Abdominal Exam Present: soft Comments: The patient's abdomen remains somewhat distended; however, this has continued to slowly improve. He has not significantly tender and remains quite soft. Progress Note: A&P (1) SBO (small bowel obstruction) Status: Acute Current Visit: Yes (2) UTI (urinary tract infection) Status: Acute Current Visit: Yes (3) Schizophrenia Status: Chronic Current Visit: Yes (4) Ileus Status: Acute Assessment and plan: Fairly severe ileus that has continued to very slowly improve. From a surgical standpoint he will likely be stable for discharge soon (as long as he is able to tolerate enough intake to maintain nutrition). 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
[2019-11-11 11:06] LABS: POC Glucose,Bedside 211 (70-110)
[2019-11-11 16:00] VITALS: BP 146/55; PULSE 75; RESP 18; TEMP 36.6; O2SAT 98
--- NOTE | 2019-11-11 16:11 | HMH.DCSUM ---
General - General Admission date:: 11/04/19 Discharge date: 11/11/19 HPI HPI: 78-year-old male with a history of schizophrenia who presented to the emergency department from [facility]. Per staff at [facility] patient had a increased abdominal distention and emesis. Patient is a very poor historian. Uncertain with regard to diarrhea.A CT scan obtained in the emergency department did show moderate small bowel distention with some air-fluid levels. Air and feces noted within the colon. Patient was not cooperative with NG tube placement. Patient was admitted for possible small bowel obstruction and surgery consult obtained. Hospital Course Hospital Course: Laboratory Tests 11/03/19 11/03/19 11/03/19 22:28 22:28 23:19 WBC 15.7 H RBC 5.51 Hgb 14.2 Hct 44.5 MCV 80.7 MCH 25.7 L MCHC 31.8 RDW 15.4 Plt Count 265 MPV 7.8 Neut % (Auto) 80.3 H Lymph % (Auto) 12.0 [place] % (Auto) 7.1 Eos % (Auto) 0.3 Baso % (Auto) 0.3 Neut # (Auto) 12.6 H Lymph # (Auto) 1.9 [place] # (Auto) 1.1 H Eos # (Auto) 0.0 Baso # (Auto) 0.1 Total Counted 100 Neutrophils % (Manual) 76 Lymphocytes % (Manual) 15 Monocytes % (Manual) 9 Platelet Estimate Normal Hypochromasia 1+ Sodium 137 Potassium 4.5 Chloride 101 Carbon Dioxide 21 L Anion Gap 19.5 H BUN 22 H Creatinine 1.40 H Estimated Creat Clear 60 Estimated GFR 49 L Est GFR ( Amer) 59 Glucose 234 H POC Glucose Lactate Calcium 9.4 Total Bilirubin 0.8 AST 28 ALT 34 Alkaline Phosphatase 146 H Total Protein 8.3 H Albumin 4.2 Globulin 4.1 H Albumin/Globulin Ratio 1.0 L Amylase 40 Lipase 29 Urine Color Yellow Urine Appearance Clear Urine pH 5.5 Ur Specific [place] >= 1.030 Urine Protein 2+ Urine Glucose (UA) Negative Urine Ketones 1+ Urine Blood Trace-i Urine Nitrate Positive Urine Bilirubin Negative Urine Urobilinogen 1.0 Ur Leukocyte Esterase 1+ A Urine RBC 3-5 Urine WBC 10-20 Urine Bacteria 2+ Hyaline Casts 3-5 Urine Mucus 1+ Stl Aeromonas (PCR) Stl C. cayetanensis PCR Stool Rotavirus (PCR) Stl Adenov F PCR Stool Astrovirus (PCR) Stool Campylobacter PCR Stl C.difficile Tox PCR Stool Cryptosporidium PCR Stl E.coli Shiga Tox PCR Stool E coli O157 PCR Stl Enterotoxigenic E PCR Stool EPEC (PCR) Stool EAEC (PCR) Stl E. histolytica PCR Stool Giardia Lamblia PCR Stool Salmonella PCR Stool Sapovirus (PCR) Stl P. shigelloides PCR Stl Shigella/EIEC PCR St Y.enterocolitica PCR Stool Vibrio (PCR) Stl Vibrio cholerae PCR Stl Norovirus GI/GII PCR 11/04/19 11/04/19 11/04/19 00:20 04:40 04:40 WBC 7.9 D RBC 4.93 Hgb 12.8 L Hct 40.9 L MCV 82.9 MCH 25.9 L MCHC 31.2 L RDW 15.4 Plt Count 196 D MPV 7.9 Neut % (Auto) 87.6 H Lymph % (Auto) 5.9 L [place] % (Auto) 6.1 Eos % (Auto) 0.1 Baso % (Auto) 0.3 Neut # (Auto) 7.0 Lymph # (Auto) 0.5 L [place] # (Auto) 0.5 Eos # (Auto) 0.0 Baso # (Auto) 0.0 Total Counted Neutrophils % (Manual) Lymphocytes % (Manual) Monocytes % (Manual) Platelet Estimate Hypochromasia Sodium 138 Potassium 5.3 H Chloride 106 Carbon Dioxide 22 Anion Gap 15.3 H BUN 20 Creatinine 1.30 H Estimated Creat Clear 51 Estimated GFR 53 L Est GFR ( Amer) 64 Glucose 195 H POC Glucose Lactate 4.2 H Calcium 8.4 D Total Bilirubin AST ALT Alkaline Phosphatase Total Protein Albumin Globulin Albumin/Globulin Ratio Amylase Lipase Urine Color Urine Appearance Urine pH Ur Specific [place] Urine Protein Urine Glucose (UA) Urine Ketones Urine Blood Urine Nitrate Urine Bilirubin Urine Urobili
--- NOTE | 2019-11-11 16:38 | PC.NURSE ---
REPORT GIVEN TO FUNMILAYO MARSH AT [facility]
== END 2019-11-11 18:00 | DRG 388 ==
LOC: ER 22:42 → 2ND 11-04 01:17
PROVIDERS: Nurse Practitioner Family; Surgery; Admitting Provider Emergency Medicine; Emergency Provider Emergency Medicine; PCP Emergency Medicine; Visit Provider Emergency Medicine
DX: K56.7 Ileus, unspecified (principal); R65.20 Severe sepsis without septic shock; N39.0 Urinary tract infection, site not specified; F20.0 Paranoid schizophrenia; E11.9 Type 2 diabetes mellitus without complications; H54.3 Unqualified visual loss, both eyes; F71 Moderate intellectual disabilities; Z79.4 Long term (current) use of insulin; Z79.899 Other long term (current) drug therapy; E03.9 Hypothyroidism, unspecified
CPT/HCPCS: 36415; 71045; 74018; 74019; 74021; 74177; 74246; 74248; 80048; 80053; 81001; 82150; 82962; 83605; 83690; 85007; 85025; 87040; 87086; 87088; 87186; 87507; 94761; 96365; 96366; 96375; 99285; J1335; J2405; Q9967

== ENCOUNTER → 2020-04-29 14:27 | Outpatient (CLI) | payer MEDICARE, MEDICAID, SELFPAY | PROVIDERS: Visit Provider Nurse Practitioner Family | DX: Z20.828 Contact with and (suspected) exposure to other viral communicable diseases (principal); U07.1 COVID-19 | CPT/HCPCS: U0003 ==

== ENCOUNTER → 2023-02-07 22:08 | Outpatient (CLI) | payer MEDICARE, MEDICAID, SELFPAY ==
[2023-02-07 22:19] LABS: Microscopic, Urine URINE MICROSCOPIC (MICROSCOPIC)
[2023-02-07 22:35] LABS: Appearance,Urine CLEAR (Clear); Blood, Urine TRACE-I (Negative); Color,Urine YELLOW (Yellow); Glucose,Urine (UA) Negative (Negative); Ketones,Urine TRACE (Negative); Leukocyte Esterase,Urine Negative (Negative); Nitrate,Urine Negative (Negative); Protein,Urine 2+ (Negative); Specific Gravity, Urine >= 1.030 (1.005-1.030); Urobilinogen,Urine 0.2 EU/dl (0.2)
[2023-02-07 23:26] LABS: Bilirubin,Urine 1+ (Negative)
[2023-02-07 23:53] LABS: RBC,Urine Occasional #/hpf (0-3); Squamous Epithelial Cell,Urine Occasional #/hpf (0-5); WBC,Urine Occasional #/hpf (0-3)
== END ==
PROVIDERS: PCP Emergency Medicine; Visit Provider Emergency Medicine
DX: R30.0 Dysuria (principal); N39.0 Urinary tract infection, site not specified
CPT/HCPCS: 81001

== ENCOUNTER → 2023-03-28 11:02 | Outpatient (CLI) | payer MEDICARE, MEDICAID, SELFPAY ==
--- NOTE | 2023-03-28 11:03 | FL_ITS ---
FINAL REPORT CLINICAL HISTORY: dysphagia DAP: 280.61 Fluor time: 3.50 FINDINGS: MODIFIED BARIUM SWALLOW HISTORY: Dysphagia. FINDINGS: Fluoroscopy was provided for the speech pathologist to evaluate the swallowing mechanism. The patient was given several different consistencies of barium while the swallow was visualized fluoroscopically. The report of the speech pathologist should be consulted prior to making dietary decisions. IMPRESSION: Modified barium swallow under fluoroscopic guidance. Please see speech pathologist's report for further details and dietary recommendations. Fluoroscopy time was 3 minutes, 50 seconds A total of 12 cine runs were saved. Radiation exposure in Total DAP: 280.61 [id number] Reviewed, Interpreted and Dictated by Aramis Birmingham III, MD Transcribed by Enid Santiago PA-C Authenticated and [facility]
--- NOTE | 2023-03-28 13:21 | HMH.SLMBS2 ---
Speech & Language Evaluation Speech/Language Mod Barium Swallow Start: 03/28/23 12:28 Freq: once Status: Complete Protocol: Document 03/28/23 12:28 MARIAN (Rec: 03/28/23 13:21 [facility] [id number]) General Information General Current Food Consistancy Pureed,Thin Liquids Dentition Edentulous Oxygen Status Room Air Ability to Follow Directions Poor Communication Ability Moderate Impairment MBS Recommendations Diet Dietary Recommendations Pureed,Phillips Liquids Treatment/Strategies Treatment Recommendation Compens. Strategy Educat. Strategy/Precaution Recommend Sitting Upright (90 deg),Chin Tuck,Double Swallow,No Straw, Small Bites and Sips,Alternate Liquids/Solids Mod Barium Swallow Impressions Summary and Impressions Oral Phase Impression Severe Impairment Oral Phase Summary Chas exhibits a severe impairment of the oral transit and oral prepatory phases of the swallow. He was observed to have nevin residue in the oral cavity throughout all consistencies swallowed, as well as moderate oral holding required a cue to facilitate a swallow to transfer to the pharyngeal phase of the swallow. Across all liquid consistencies trialled (thin/ nectar/honey), Mr. Ambrocio was observed to have scattered loss of the bolus with pooling under the tongue. He also demonstrated difficulty manipulating and controlling the bolus with cues required to successful suction liquid from cup into his oral cavity. During puree trials, manipulation of bolus was improved slightly,however, scattered loss and pooling under the tone was still observed. Throughout the trial , Mr. Ambrocio demonstrated fatigue, most observed during mechanical soft trial as he was unable to successful bite down into the bar to trial the solid. AUTOMOTIVE ACCESSORY INSTALLER was josephine
== END ==
PROVIDERS: PCP Emergency Medicine; Visit Provider Emergency Medicine
DX: R13.10 Dysphagia, unspecified (principal)
CPT/HCPCS: 70371; 92611

== ENCOUNTER 2023-05-09 20:11 | Inpatient (IN) | payer MEDICARE, MEDICAID, SELFPAY ==
[2023-05-09] VITALS (7 sets, daily range): BP systolic 111–154; BP diastolic 36–71; PULSE 90–109; RESP 11–20; TEMP 36.1–36.6; O2SAT 94–100; BMI 19.2; BMI 18.8
--- NOTE | 2023-05-09 20:33 | HMH.EDGENADL ---
Discharge Plan Disposition Patient Disposition: Admitted Condition: Fair Chief Complaint: Recheck/Abnormal Lab/Rx Prescriptions Prescriptions: No Action polyethylene glycol 3350 17 GM powder in packet 17 g PO DAILYP PRN (Reason: Constipation) olanzapine 10 MG tablet 10 mg PO BID divalproex 500 MG tablet extended release 24 hr 1,000 mg PO HS docusate sodium 100 MG capsule 100 mg PO BID atorvastatin 40 MG tablet 40 mg PO DAILY acetaminophen 500 MG tablet 500 mg PO Q4HP PRN (Reason: As Needed For Fever Or Pain) metformin 500 MG tablet extended release 24 hr 500 mg PO BID insulin lispro 100 UNIT/ML cartridge 0 unit SQ DIRECTED Rx Instructions: SLIDING SCALE levothyroxine 100 MCG tablet 100 mcg PO DAILY sennosides 8.6 MG tablet 8.6 mg PO BID insulin glargine 100 UNIT/ML solution 15 units SQ HS lutein 10 MG tablet 10 mg PO DAILY Referrals Follow up/Referrals: Pollo Armas MD [Primary Care Provider] - See instructions Clinical Impressions Clinical Impression: Acute kidney failure Discharge ED Provider: Neel Kee General Adult HPI General Chief complaint: Recheck/Abnormal Lab/Rx Stated complaint: Welfare Check Time Seen by Provider: 05/09/23 20:33 Mode of Arrival: EMS Source of Information: Patient Limitations: No Limitations Description of Symptoms (Recalled from ER Triage Doc. by RN): 82 yo male presents with CC of swallowing issues x 3 weeks; possible jaundice. Patient's mentation is normally alert to self, has a mattress pad on the floor, crawls around on it throughout day. No other complaints. [facility] staff stated that they called Dr Lacey and was advised to send him in for a workup. Unable to determine if in any pain. Actively stooling at time of triage, yellow thick paste in nature. Afebrile History of Present Illness HPI narrative: Patient has a PMHx significant for bilateral blindness, hypothyroidism, severe developmental delay, schizophrenia, advanced dementia, CKD, diabetes who presents to the ED with complaints of dysphagia and jaundice. Per [facility] staff, patient has been having worsening swallowing issues x 3 weeks; Today, patient was found to be possibly jaundiced. Patient's mentation is normally alert to self, has a mattress pad on the floor, crawls around on it throughout day. No other complaints. [facility] staff stated that they called Dr Chanda and [facility] and was advised to send him in for a workup. Unable to determine if in any pain. Actively stooling at time of triage, yellow thick paste in nature. Upon arrival to the ED, patient was entirely covered in feces and after cleaning patient, was no longer yellow in appearance. Related Data Home Medications Medication Instructions Recorded Confirmed divalproex 500 mg tablet,extended 1,000 mg PO HS seizures 09/24/18 04/11/23 release 24 hr docusate sodium 100 mg capsule 100 mg PO BID CONSTIPATION 09/24/18 04/11/23 olanzapine 10 mg tablet 10 mg PO BID MOOD 09/24/18 04/11/23 polyethylene glycol 3350 17 gram 17 g PO DAILYP PRN Constipation 09/24/18 04/11/23 oral powder packet acetaminophen 500 mg tablet 500 mg PO Q4HP PRN As Needed For 11/03/19 04/11/23 Fever Or Pain atorvastatin 40 mg tablet 40 mg PO DAILY Cholesterol 11/03/19 04/11/23 insulin lispro 100 unit/mL 0 unit SQ DIRECTED Diabetes 11/03/19 04/11/23 subcutaneous cartridge metformin 500 mg tablet,extended 500 mg PO BID Diabetes 11/03/19 04/11/23 release 24 hr insulin glargine 100 unit/mL 15 units SQ HS Diabetes 11/04/19 04/11/23 subcutaneous solution levothyroxine 100 mcg tablet 100 mcg PO DAILY thyroid 11/04/19 04/11/23 lutein 10 mg tablet 10 mg PO DAILY Supplement 11/04/19 04/11/23 sennosides 8.6 mg tablet 8.6 mg PO BID constipation 11/04/19 04/11/23 Allergies Allergy/AdvReac Type Severity Reaction Status Date / Time No Known Allergies Allergy Verified 04/11/23 04:41 [facility] PFS D
--- NOTE | 2023-05-09 20:34 | XR_ITS ---
PROCEDURE INFORMATION: Exam: XR Chest Exam date and time: 05/09/2023 8:49 PM Age: 82 years old Clinical indication: Injury or trauma; Fall; Blunt trauma (contusions or hematomas) TECHNIQUE: Imaging protocol: Radiologic exam of the chest. Views: 1 view. COMPARISON: CR XR CHEST PORTABLE 11/04/2019 7:13 AM FINDINGS: Lungs: Chronic interstitial lung disease and pulmonary fibrosis. Subtle superimposed multifocal pneumonia not excluded. Pleural spaces: Unremarkable. No pleural effusion. No pneumothorax. Heart/Mediastinum: Unremarkable. No cardiomegaly. Bones/joints: Unremarkable. IMPRESSION: Chronic interstitial lung disease and pulmonary fibrosis. Subtle superimposed multifocal pneumonia not excluded.
[2023-05-09 20:55] LABS: Basophils % 0.2 % (0.1-2.0); Eosinophils # 0.1 K/mm3 (0.0-0.4); Eosinophils % 1.1 % (0.1-12.0); Hematocrit 32.4 % (42.0-52.0); Hemoglobin 10.1 g/dL (14.1-18.0); Lymphocytes # 1.1 K/mm3 (0.7-4.5); Lymphocytes % 9.8 % (10-50); Mean Corpuscular HGB Conc 31.1 g/dL (31.8-35.4); Mean Corpuscular Hemoglobin 24.7 pg (27.0-31.2); Mean Corpuscular Volume 79.5 fl (80-94); Mean Platelet Volume 8.2 fl (7.4-10.4); Monocytes # 0.7 K/mm3 (0.1-1.0); Monocytes % 6.2 % (1.7-9.3); Neutrophils % 82.6 % (37.0-80.0); Platelet Count 363 K/mm3 (142-424); Red Blood Count 4.07 M/mm3 (4.60-6.20); Red Cell Distribution Width 17.8 % (11.5-17.5); White Blood Count 10.9 K/mm3 (4.8-10.8)
[2023-05-09 21:02] LABS: Alanine Aminotransferase 49 U/L (12-78); Albumin Level 3.3 g/dl (3.5-5.0); Albumin/Globulin Ratio 0.8 (1.1-1.8); Alkaline Phosphatase 213 U/L (38-126); Anion Gap 14.4 mEq/L (5-15); Aspartate Amino Transferase 55 U/L (17-59); Bilirubin,Total 0.4 mg/dl (0.2-1.3); Blood Urea Nitrogen 36 mg/dl (9-20); Calcium 8.9 mg/dl (8.4-10.2); Carbon Dioxide 28 mmol/L (22.0-30.0); Chloride 116 mmol/L (98-107); Creatinine Clearance Estimated 20 mL/min (50-200); Estimated Glomerular Filt Rate 27 ml/min (>60); GFR (African American) 33 ML/MIN (>60); Globulin 4.2 g/dL (1.3-3.2); Glucose 128 mg/dl (74-100); Lipase 36 U/L (23-300); Potassium 4.4 mmoL/L (3.5-5.1); Total Protein,Serum 7.5 g/dl (6.3-8.2)
[2023-05-09 21:05] LABS: Sodium 154 mmol/L (136-145)
[2023-05-09 21:06] LABS: Lactic Acid 4.6 mmol/L (0.7-2.1)
--- NOTE | 2023-05-09 21:07 | PC.NURSE ---
calling [facility] to speak with the physician at [facility] ED
--- NOTE | 2023-05-09 21:49 | EXP.HP ---
History of Present Illness *Admission Date: 05/09/23 *Reason for visit:: failure to thrive *History of present illness: This is a 82yo male Nursing facility resident with a PMHx significant for bilateral blindness, hypothyroidism, severe developmental delay, schizophrenia, advanced dementia, CKD, diabetes who was brought in to ED by EMS after been sent by facility for evaluation of dysphagia and jaundice. Data collected from ER documentation, because of patient advanced dementia and been uncooperative with interview. retirement staff reported swallowing issues x 3 weeks and possible jaundice. Upon arrival to the ED, patient was entirely covered in feces and after cleaning patient, was no longer yellow in appearance. Patient's mentation is normally alert to self. Actively stooling at time of triage. Admitted for further work up and managment. [facility] Disclaimer: The information contained in this section may have been updated after the patient was seen, as this information can be updated by other users. Medical History Blind in both eyes Hypothyroidism (acquired) Moderate intellectual disabilities Renal insufficiency Schizophrenia Social History (Updated 05/10/23 @ 01:09 by Aida Fritz RN) Smoking Status: Unknown if ever smoked alcohol intake: never current occupational status: disabled Travel in the last 8 weeks: None household members: other housing: senior living current occupational exposures/hazards: No caffeine: Yes Review of Systems Review of Systems Review of systems:: unable to obtain Meds Home Medications and Allergies Home Medications Medication Instructions Recorded Confirmed Type docusate sodium 100 mg capsule 100 mg PO BID Constipation 09/24/18 05/10/23 History polyethylene glycol 3350 17 gram 17 g PO DAILYP PRN Constipation 09/24/18 05/10/23 History oral powder packet acetaminophen 500 mg tablet 500 mg PO Q6HP PRN As Needed For 11/03/19 05/10/23 History Fever Or Pain atorvastatin 40 mg tablet 40 mg PO DAILY Cholesterol 11/03/19 05/10/23 History sennosides 8.6 mg tablet 8.6 mg PO BID constipation 11/04/19 05/10/23 History divalproex 125 mg capsule,delayed 750 mg PO BID Seizures 05/10/23 05/10/23 History release sprinkle haloperidol 5 mg tablet 5 mg PO BID Mood 05/10/23 05/10/23 History levothyroxine 112 mcg tablet 112 mcg PO DAILY Thyroid 05/10/23 05/10/23 History lorazepam 0.5 mg tablet 0.5 mg PO BID Anxiety 05/10/23 05/10/23 History mirtazapine 15 mg tablet 15 mg PO HS Mood 05/10/23 05/10/23 History omeprazole 20 mg capsule,delayed 20 mg PO DAILY Acid Reflux 05/10/23 05/10/23 History release trazodone 50 mg tablet 50 mg PO DAILY Mood 05/10/23 05/10/23 History trazodone 50 mg tablet 150 mg PO HS Sleep 05/10/23 05/10/23 History New Prescriptions to Start Prescriptions: Allergies Allergy/AdvReac Type Severity Reaction Status Date / Time No Known Allergies Allergy Verified 04/11/23 04:41 Exam Data for Last 24 hours Vital signs and Labs for Last 24 Hours: Temp Pulse Resp BP Pulse Ox O2 Del Method 97.0 F L 109 H 19 154/60 H 100 Room Air 05/09/23 20:15 05/09/23 20:15 05/09/23 20:15 05/09/23 20:15 05/09/23 20:15 05/09/23 20:15 Laboratory Results - last 24 hr 05/09/23 20:45: WBC 10.9 H, RBC 4.07 L, Hgb 10.1 L, Hct 32.4 L, MCV 79.5 L, MCH 24.7 L, MCHC 31.1 L, RDW 17.8 H, Plt Count 363, MPV 8.2, Neut % (Auto) 82.6 H, Lymph % (Auto) 9.8 L, [place] % (Auto) 6.2, Eos % (Auto) 1.1, Baso % (Auto) 0.2, Neut # (Auto) 9.0 H, Lymph # (Auto) 1.1, [place] # (Auto) 0.7, Eos # (Auto) 0.1, Baso # (Auto) 0.0, Sodium 154 H*, Potassium 4.4, Chloride 116 H, Carbon Dioxide 28, Anion Gap 14.4, BUN 36 H, Creatinine 2.30 H, Estimated Creat Clear 20, Estimated GFR 27 L, Est GFR ( Amer) 33 L, Glucose 128 H, Lactate 4.6 H, Calcium 8.9, Total Bilirubin 0.4, AST 55, ALT 49, Alkaline Phosphatase 213 H, Total Protein 7.5,
--- NOTE | 2023-05-09 22:09 | PC.NURSE ---
I called Alexsander MELLO, maid housekeeper, to request an admission bed for hypernatremia, DENISE and chronic dysphagia
--- NOTE | 2023-05-09 22:12 | PC.NURSE ---
Admitting notified for admission per tobacco warehouse agent
[2023-05-09 22:22] LABS: VBG Base Excess -0.8 mmol/L (-2.4-2.3); VBG HCO3 26.3 mmol/L (23-30); VBG Oxygen Saturation 67.1 % (50-70); VBG PH 7.26 mmol/L (7.31-7.41); VBG PO2 42.1 mmol/L (28-40); VBG Total CO2 28.1 mmol/L (23-27)
--- NOTE | 2023-05-09 23:10 | PC.NURSE ---
Pt arrived to floor via stretcher @ 2548
[2023-05-10 00:14] LABS: Reflex Lactic Add Lactic Reflex
[2023-05-10 00:39] LABS: Lactic Acid Follow Up (RFLX 1) 1.9 mmol/L (0.7-2.1)
[2023-05-10 04:00] VITALS: BP 113/50; PULSE 86; RESP 16; TEMP 36.4; O2SAT 95; BMI 18.8
[2023-05-10 07:06] LABS: Basophils % 0.2 % (0.1-2.0); Eosinophils # 0.3 K/mm3 (0.0-0.4); Eosinophils % 2.9 % (0.1-12.0); Hematocrit 28.6 % (42.0-52.0); Lymphocytes # 0.9 K/mm3 (0.7-4.5); Lymphocytes % 10.2 % (10-50); Mean Corpuscular HGB Conc 31.4 g/dL (31.8-35.4); Mean Corpuscular Hemoglobin 24.8 pg (27.0-31.2); Mean Corpuscular Volume 79.1 fl (80-94); Mean Platelet Volume 8.6 fl (7.4-10.4); Monocytes # 0.6 K/mm3 (0.1-1.0); Monocytes % 6.7 % (1.7-9.3); Neutrophils # 6.9 K/mm3 (1.8-7.8); Platelet Count 332 K/mm3 (142-424); Red Blood Count 3.62 M/mm3 (4.60-6.20); Red Cell Distribution Width 17.7 % (11.5-17.5); White Blood Count 8.7 K/mm3 (4.8-10.8)
[2023-05-10 07:13] LABS: Alanine Aminotransferase 35 U/L (12-78); Albumin Level 2.8 g/dl (3.5-5.0); Albumin/Globulin Ratio 0.8 (1.1-1.8); Alkaline Phosphatase 191 U/L (38-126); Anion Gap 8.9 mEq/L (5-15); Aspartate Amino Transferase 51 U/L (17-59); Bilirubin,Total 0.4 mg/dl (0.2-1.3); Blood Urea Nitrogen 35 mg/dl (9-20); Carbon Dioxide 26 mmol/L (22.0-30.0); Chloride 116 mmol/L (98-107); Creatinine Clearance Estimated 25 mL/min (50-200); Estimated Glomerular Filt Rate 36 ml/min (>60); GFR (African American) 44 ML/MIN (>60); Globulin 3.5 g/dL (1.3-3.2); Glucose 113 mg/dl (74-100); Potassium 3.9 mmoL/L (3.5-5.1); Sodium 147 mmol/L (136-145); Total Protein,Serum 6.3 g/dl (6.3-8.2)
[2023-05-10 07:19] LABS: POC Glucose,Bedside 103 (70-110)
[2023-05-10 07:36] VITALS: BP 122/45; PULSE 87; RESP 17; TEMP 36.5; O2SAT 97
--- NOTE | 2023-05-10 08:43 | P.CONPHA_ITS ---
Pharmacy Intervention Comments: MEDICATION RECONCILIATION COMPLETED ON PATIENT USING MAR FORM SHELTER. -SHAINA LOPEZD
--- NOTE | 2023-05-10 08:43 | HMH.PHAINT1 ---
Pharmacy Intervention Comments: MEDICATION RECONCILIATION COMPLETED ON PATIENT USING MAR FORM ASSISTED. -SHAINA LOPEZD
--- NOTE | 2023-05-10 09:16 | HMH.SLDYSPHA ---
Speech & Language Evaluation Speech/Language Dysphagia Evaluation Start: 05/10/23 08:46 Freq: ONCE Status: Active Protocol: Document 05/10/23 08:46 MARIAN (Rec: 05/10/23 09:16 MARIAN [id number]) Dysphagia Assess/Goals/Plan Assessment Date of Evaluation: 05/10/23 Evaluation Type Initial Certification Assessment/Problems hx of chronic dysphagia per MD order Does Patient Qualify for Service No Qualify/Failure Comment Based on clinical observation during the clinical bedside swallow evaluation, pt's advanced dementia makes it difficult for Mr. Ambrocio to follow simple commands and he was unable to facilitate a safe swallow at this time. Recommendations PHYSICIAN CERTIFICATION: The specified therapy services are required, authorized, and reviewed every 30 days. Diet Recommendations Pleasure Feedings SL Swallow Guidelines High aspiration risk Comment It is recommended MD visit alternate means of nutrition or hospice level care based on pt's current state. Plan Pt/Guardian verbally ack understanding Yes of dx/prognosis/goals G -code Required No Education Instructions provided Discussed Mr. Ambrocio's recent MBSS and recommendations, as well as attempt of CSE and recommendation for comfort measures 2' advanced dementia status with MD and nurisng who expressed understanding. Pt/Caregiver able to recall information Able to recall/restate Speech & Language HPI History Present Illness Description of Patient Problem 82 yo male presents with CC of swallowing issues x 3 weeks; possible jaundice. Patient's mentation is normally alert to self, has a mattress pad on the floor, crawls around on it throughout day. Patient has a PMHx significant for bilateral blindness, hypothyroidism, severe developmental delay, schizophrenia, advanced dementia, CKD, and diabetes. Pt/Caregiver Concerns Based on MBSS dated 03/28/23, Mr. Ambrocio has severe
--- NOTE | 2023-05-10 10:00 | CARE MANAGER ---
Addendum entered by Oriana Ash 05/15/23 07:32: I have received approval for EOL from Nurse [employer] Plate Assembler. Patient information will be faxed to [facility] and [facility]. The plan for this patient will be to return to [facility] once [facility] evaluates patient. Addendum entered by Oriana Ash 05/14/23 09:09: Updated patient information has been faxed to [facility]. Addendum entered by Oriana Ash 05/13/23 11:39: Updated requested information has been faxed to [facility]. Addendum entered by Oriana Ash 05/13/23 08:04: I have emailed both [facility] regarding paperwork faxed over the weekend regarding comfort care/Hospice. Addendum entered by Tete Esparza RN 05/10/23 10:06: Faxed M[facility] at [facility] updates. Original Note: Patient resides at [facility] at [facility] level of care. Patient failed Speech therapy swallowing eval and recently had a modified barium swallow that he also did not do well on. Patient will likely either need to be comfort care or have a gtube placed. Contacted State guardianship at the oncall number of [phone] and spoke with Claus Jackson. He states patient is a DNR and he will fax the necessary paperwork for the physician to complete depending on what plan of care is decided. Will discuss with Dr. Hazel and proceed from there.
[2023-05-10 13:23] LABS: POC Glucose,Bedside 117 (70-110)
--- NOTE | 2023-05-10 13:59 | HMH.PTWOUND ---
Rehab Inpt Wound Evaluation Rehab IP Wound Evaluation Start: 05/09/23 23:32 Freq: ONCE Status: Active Protocol: Document 05/10/23 13:45 AVNI (Rec: 05/10/23 13:59 AVNI [id number]) Rehab PT Wound Assessment Patient Status Premedicated Prior to Dressing Change No Subjective Subjective Patient unable to communicate name and orientation. Wound Sacrum Wound Type Pressure Ulcer Wound Staging Stage II Query Text:Stage I - Unbroken, red skin, no blanching. Stage II - Skin broken, superficial skin loss involving epidermis alone or also dermis. Partial loss of skin layers. Stage III - Pressure area involves epidermis, dermis and subcutaneous tissue, full thickness skin loss. Stage IV - Pressure area involves epidermis, subcutaneous tissue, bone and other supportive tissue. Full thickness skin loss with extensive destruction of underlying tissue and structures. Superficial wound not involving tendon, w/o infection/ischemia capsule or bone Wound Length (cm) 1 Wound Width (cm) 0.2 Wound Bed Appearance [place] Wound Margins Description Well Defined Undermining Position None Surrounding Tissue Appearance [place] Wound Drainage Description None Drainage Amount None Drainage Odor No Odor Dressing Status Open to Air Plan/Recommendation Comment Nursing to continue to monitor any progression of wound status. No dressing needed at this time. Discussed unweighting/patient positioning to prevent progression. Eval Complexity Eval Charge Codes 13285 - High Complexity PHYSICIAN CERTIFICATION: I certify the specified therapy services for Chas Ambrocio are required, authorized, and reviewed every 30 days.
[2023-05-10 15:24] VITALS: BP 119/52; PULSE 81; RESP 18; TEMP 36.4; O2SAT 93
--- NOTE | 2023-05-10 15:49 | PC.WOUNDNOTE ---
Addendum entered by Nidia Mirza RN 05/10/23 15:56: PT HAS REDNESS AND SMALL STAGE 2 NOTED TO BUTTOCKS. Original Note: PT IS RESTING IN BED. ALERT TO NAME ONLY. TURNED AND REPOSITIONED IN BED FREQUENTLY. CODE STATUS WAS VERIFIED OVER THE PHONE WITH JACQUARD [employer]ER STATE GUARDIAN NISREEN LOPEZ. PT HAS BEEN DNR STATUS SINCE 04/12/23. PT FAILED HIS BEDSIDE SWALLOW EVAL TODAY. PT DID EAT A COUPLE OF SMALL BITES OF CHOCOLATE ICE CREAM THIS SHIFT BUT HAD TO BE REMINDED SEVERAL TIMES TO SWALLOW. DR BHANDARI NOTIFIED OF GENERAL SURGERY CONSULT. WILL CONTINUE TO MONITOR.
--- NOTE | 2023-05-10 16:12 | EXP.SURG.CON ---
History of Present Illness *Admission Date: 05/09/23 *Reason for visit:: Asked to see this patient to comment on consideration of gastrostomy tube *History of present illness: Patient is AN 82-year-old male with history of bilateral blindness, severe developmental delay, schizophrenia, advanced dementia, chronic kidney disease, diabetes, hypothyroidism, pulmonary fibrosis. He is a resident of [facility]. senior care reports swallowing issues for at least several weeks. According to the record patient has significant advanced dementia and at the shelter has a mattress pad on the floor upon which she crawls around on it throughout the day. There is concerned about the patient's swallowing status over the past several weeks and concern for jaundice and therefore he was brought to the emergency department yesterday evening. Patient arrived covered in his own feces. Upon cleaning the patient from his own feces he did not appear jaundiced. Total bilirubin is 0.4. Patient was admitted for further workup and management. Patient has undergone speech therapy swallowing evaluation on more than 1 occasion in various phases have shown moderate to severe impairment. It was noted that patient is unable to follow commands due to significant dementia and conclusion is that patient is high aspiration risk and consideration be given for alternate means of nutrition versus hospice care based on the patient's state. [facility] Disclaimer: The information contained in this section may have been updated after the patient was seen, as this information can be updated by other users. Medical History Blind in both eyes Hypothyroidism (acquired) Moderate intellectual disabilities Renal insufficiency Schizophrenia Social History (Updated 05/10/23 @ 01:09 by Aida Fritz RN) Smoking Status: Unknown if ever smoked alcohol intake: never current occupational status: disabled Travel in the last 8 weeks: None household members: other housing: shelter current occupational exposures/hazards: No caffeine: Yes Review of Systems Review of Systems Review of systems:: unable to obtain Meds Home Medications and Allergies Home Medications Medication Instructions Recorded Confirmed Type docusate sodium 100 mg capsule 100 mg PO BID Constipation 09/24/18 05/10/23 History polyethylene glycol 3350 17 gram 17 g PO DAILYP PRN Constipation 09/24/18 05/10/23 History oral powder packet acetaminophen 500 mg tablet 500 mg PO Q6HP PRN As Needed For 11/03/19 05/10/23 History Fever Or Pain atorvastatin 40 mg tablet 40 mg PO DAILY Cholesterol 11/03/19 05/10/23 History sennosides 8.6 mg tablet 8.6 mg PO BID constipation 11/04/19 05/10/23 History divalproex 125 mg capsule,delayed 750 mg PO BID Seizures 05/10/23 05/10/23 History release sprinkle haloperidol 5 mg tablet 5 mg PO BID Mood 05/10/23 05/10/23 History levothyroxine 112 mcg tablet 112 mcg PO DAILY Thyroid 05/10/23 05/10/23 History lorazepam 0.5 mg tablet 0.5 mg PO BID Anxiety 05/10/23 05/10/23 History mirtazapine 15 mg tablet 15 mg PO HS Mood 05/10/23 05/10/23 History omeprazole 20 mg capsule,delayed 20 mg PO DAILY Acid Reflux 05/10/23 05/10/23 History release trazodone 50 mg tablet 50 mg PO DAILY Mood 05/10/23 05/10/23 History trazodone 50 mg tablet 150 mg PO HS Sleep 05/10/23 05/10/23 History New Prescriptions to Start Prescriptions: Allergies Allergy/AdvReac Type Severity Reaction Status Date / Time No Known Allergies Allergy Verified 04/11/23 04:41 Exam (Inpt) Vital signs and Labs for Last 24 Hours: Temp Pulse Resp BP Pulse Ox O2 Del Method 97.6 F 81 18 119/52 L 93 L Room Air 05/10/23 15:24 05/10/23 15:24 05/10/23 15:24 05/10/23 15:24 05/10/23 15:24 05/10/23 15:24 Laboratory Results - last 24 hr 05/09/23 20:34: VBG pH 7.26 L, VBG pCO2 60.0 H, VBG pO2 42.
[2023-05-10 16:16] LABS: POC Glucose,Bedside 117 (70-110)
--- NOTE | 2023-05-10 17:12 | EXP.ACUTE.PN ---
Subjective *Date: 05/10/23 *Time: 17:45 Interval history: Patient agitated this morning. Yelling out for food. Not answering questions appropriately on exam. Blood pressure stable, on room air. A-fib. Taking some of his by mouth when reminded to swallow. Does not appear in any acute distress Medical Exam Vital signs and Labs for Last 24 Hours: Vital Signs Temp Pulse Pulse Resp BP BP Pulse Ox 05/10/23 15:24 97.6 F 81 18 119/52 L 93 L 05/10/23 15:00 05/10/23 13:00 05/10/23 11:00 05/10/23 08:00 05/10/23 09:00 05/10/23 07:36 97.7 F 87 17 122/45 L 97 05/10/23 04:00 97.6 F 86 16 113/50 L 95 05/10/23 05:00 05/10/23 03:00 05/10/23 01:00 05/09/23 22:20 97.8 F 99 H 20 144/56 H 94 L 05/09/23 23:30 05/09/23 23:27 05/09/23 22:49 97.1 F L 92 H 15 126/71 05/09/23 22:31 90 12 111/68 100 05/09/23 22:13 95 H 11 L 115/67 100 05/09/23 21:00 101 H 16 128/58 L 100 05/09/23 20:31 98 H 14 121/36 L 100 05/09/23 20:15 97.0 F L 109 H 19 154/60 H 100 O2 Del Method 05/10/23 15:24 Room Air 05/10/23 15:00 Room Air 05/10/23 13:00 Room Air 05/10/23 11:00 Room Air 05/10/23 08:00 Room Air 05/10/23 09:00 Room Air 05/10/23 07:36 Room Air 05/10/23 04:00 Room Air 05/10/23 05:00 Room Air 05/10/23 03:00 Room Air 05/10/23 01:00 Room Air 05/09/23 22:20 Room Air 05/09/23 23:30 Room Air 05/09/23 23:27 Room Air 05/09/23 22:49 Room Air 05/09/23 22:31 05/09/23 22:13 05/09/23 21:00 05/09/23 20:31 05/09/23 20:15 Room Air Intake and Output 05/10/23 05/10/23 05/10/23 07:59 15:59 23:59 Intake Total 1000 / 2271 1271 / 2271 0 / 2271 Output Total 0 / 0 0 / 0 Balance 1000 / 2271 1271 / 2271 0 / 2271 Intake: Intake, Oral Amount 0 / 0 0 / 0 0 / 0 Intake, Total IV Amount 1000 / 2271 1271 / 2271 Lactated Ringers 1000ML 1,000 1000 / 1000 ml @ 999 mls/hr IV .Q1H1M ONE Rx#:[id number] Sodium Chloride 0.45 % 1,000 ml 1271 / 1271 @ 100 mls/hr IV .Q10H [facility] Rx#: [id number] Output: Output, Urine Amount 0 / 0 0 / 0 Other: Number of Unmeasured Voids 1 1 Number of Bowel Movements 1 Weight 57.861 kg Patient Weight 05/10/23 23:59 Weight 57.861 kg Laboratory Results - last 24 hr 05/09/23 20:34: VBG pH 7.26 L, VBG pCO2 60.0 H, VBG pO2 42.1 H, VBG HCO3 26.3, VBG Total CO2 28.1 H, VBG O2 Saturation 67.1, VBG Base Excess -0.8 05/09/23 20:45: WBC 10.9 H, RBC 4.07 L, Hgb 10.1 L, Hct 32.4 L, MCV 79.5 L, MCH 24.7 L, MCHC 31.1 L, RDW 17.8 H, Plt Count 363, MPV 8.2, Neut % (Auto) 82.6 H, Lymph % (Auto) 9.8 L, [place] % (Auto) 6.2, Eos % (Auto) 1.1, Baso % (Auto) 0.2, Neut # (Auto) 9.0 H, Lymph # (Auto) 1.1, [place] # (Auto) 0.7, Eos # (Auto) 0.1, Baso # (Auto) 0.0, Sodium 154 H*, Potassium 4.4, Chloride 116 H, Carbon Dioxide 28, Anion Gap 14.4, BUN 36 H, Creatinine 2.30 H, Estimated Creat Clear 20, Estimated GFR 27 L, Est GFR ( Amer) 33 L, Glucose 128 H, Lactate 4.6 H, Calcium 8.9, Total Bilirubin 0.4, AST 55, ALT 49, Alkaline Phosphatase 213 H, Total Protein 7.5, Albumin 3.3 L, Globulin 4.2 H, Albumin/Globulin Ratio 0.8 L, Lipase 36 05/10/23 00:25: Lactate 1.9 05/10/23 06:20: WBC 8.7, RBC 3.62 L, Hgb 9.0 L D, Hct 28.6 L, MCV 79.1 L, MCH 24.8 L, MCHC 31.4 L, RDW 17.7 H, Plt Count 332, MPV 8.6, Neut % (Auto) 80.0, Lymph % (Auto) 10.2, [place] % (Auto) 6.7, Eos % (Auto) 2.9, Baso % (Auto) 0.2, Neut # (Auto) 6.9, Lymph # (Auto) 0.9, [place] # (Auto) 0.6, Eos # (Auto) 0.3, Baso # (Auto) 0.0, Sodium 147 H, Potassium 3.9, Chloride 116 H, Carbon Dioxide 26, Anion Gap 8.9, BUN 35 H, Creatinine 1.80 H D, Estimated Creat Clear 25, Estimated GFR 36 L, Est GFR ( Amer) 44 L D, Glucose 113 H, Calcium 8.0 L, Total Bilirubin 0.4, AST 51, ALT 35 D, Alkaline Phosphatase 191 H, Total Protein 6.3, Albumin 2.8 L D, Globulin 3.5 H, Albumin/Globulin Ratio 0.8 L
[2023-05-10 17:25] VITALS: BMI 18.8
[2023-05-10 18:12] LABS: Chloride 116 mmol/L (98-107)
[2023-05-10 18:13] LABS: Potassium 3.9 mmoL/L (3.5-5.1); Sodium 146 mmol/L (136-145)
[2023-05-10 18:15] LABS: Blood Urea Nitrogen 31 mg/dl (9-20); Creatinine Clearance Estimated 27 mL/min (50-200); Estimated Glomerular Filt Rate 39 ml/min (>60); GFR (African American) 47 ML/MIN (>60)
[2023-05-10 18:16] LABS: Anion Gap 8.9 mEq/L (5-15); Calcium 7.9 mg/dl (8.4-10.2); Carbon Dioxide 25 mmol/L (22.0-30.0); Glucose 105 mg/dl (74-100)
[2023-05-10 20:00] VITALS: BP 137/94; PULSE 92; RESP 16; TEMP 36.4; O2SAT 95
[2023-05-10 21:00] LABS: POC Glucose,Bedside 118 (70-110)
[2023-05-10 23:09] VITALS: BP 124/60; PULSE 89; RESP 20; TEMP 36.6; O2SAT 96
[2023-05-11 04:00] VITALS: BP 125/57; PULSE 86; RESP 17; TEMP 36.8; O2SAT 96; BMI 18.8; BMI 19.3
[2023-05-11 05:29] LABS: POC Glucose,Bedside 102 (70-110)
--- NOTE | 2023-05-11 07:15 | EXP.ACUTE.PN ---
Subjective *Date: 05/11/23 *Time: 10:37 Interval history: Stable on room air. No nausea or vomiting. Intermittently yelling out. Appears more interactive today's electrolytes have improved. Asking for something to drink. Afebrile. Medical Exam Vital signs and Labs for Last 24 Hours: Vital Signs Temp Pulse Resp BP Pulse Ox O2 Del Method 05/11/23 06:52 Room Air 05/11/23 04:00 98.3 F 86 17 125/57 L 96 Room Air 05/11/23 05:00 Room Air 05/11/23 02:47 Room Air 05/11/23 00:58 Room Air 05/10/23 23:09 97.9 F 89 20 124/60 96 Room Air 05/10/23 22:32 Room Air 05/10/23 21:00 Room Air 05/10/23 20:00 Room Air 05/10/23 20:00 97.5 F L 92 H 16 137/94 H 95 Room Air 05/10/23 18:00 Room Air 05/10/23 17:00 Room Air 05/10/23 15:24 97.6 F 81 18 119/52 L 93 L Room Air 05/10/23 15:00 Room Air 05/10/23 13:00 Room Air 05/10/23 11:00 Room Air 05/10/23 08:00 Room Air 05/10/23 09:00 Room Air 05/10/23 07:36 97.7 F 87 17 122/45 L 97 Room Air Intake and Output 05/10/23 05/10/23 05/11/23 15:59 23:59 07:59 Intake Total 1271 / 2821 550 / 2821 Output Total 0 / 0 0 / 0 0 / 0 Balance 1271 / 2821 550 / 2821 0 / 0 Intake: Intake, Oral Amount 0 / 0 0 / 0 Intake, Total IV Amount 1271 / 2371 100 / 2371 Ceftriaxone 1 gm 1 gm In 0.9 % 100 / 100 Sodium Chloride 50 ml @ 100 mls /hr IV Q12H [facility] Rx#:[id number] Sodium Chloride 0.45 % 1,000 ml 1271 / 1271 @ 50 mls/hr IV .Q20H [facility] Rx#: [id number] Infusion Intake 450 / 450 Sodium Chloride 0.45 % 1,000 ml 450 / 450 @ 50 mls/hr IV .Q20H [facility] Rx#: [id number] Output: Output, Urine Amount 0 / 0 0 / 0 0 / 0 Other: Number of Unmeasured Voids 1 1 1 Number of Urine Attends/Diapers 1 Number of Bowel Movements 1 Weight 57.861 kg 59.375 kg Patient Weight 05/11/23 23:59 Weight 59.375 kg Laboratory Results - last 24 hr 05/10/23 06:20: Sodium 147 H, Potassium 3.9, Chloride 116 H, Carbon Dioxide 26, Anion Gap 8.9, BUN 35 H, Creatinine 1.80 H D, Estimated Creat Clear 25, Estimated GFR 36 L, Est GFR ( Amer) 44 L D, Glucose 113 H, Calcium 8.0 L, Total Bilirubin 0.4, AST 51, ALT 35 D, Alkaline Phosphatase 191 H, Total Protein 6.3, Albumin 2.8 L D, Globulin 3.5 H, Albumin/Globulin Ratio 0.8 L 05/10/23 07:02: POC Glucose 103 05/10/23 11:31: POC Glucose 117 H 05/10/23 16:00: POC Glucose 117 H 05/10/23 17:45: Sodium 146 H, Potassium 3.9, Chloride 116 H, Carbon Dioxide 25, Anion Gap 8.9, BUN 31 H, Creatinine 1.70 H, Estimated Creat Clear 27, Estimated GFR 39 L, Est GFR ( Amer) 47 L, Glucose 105 H, Calcium 7.9 L 05/10/23 20:52: POC Glucose 118 H 05/11/23 05:19: POC Glucose 102 I & O for Labs for Last 24 Hours: Intake & Output 05/08/23 05/09/23 05/10/23 05/11/23 23:59 23:59 23:59 23:59 Intake Total 450 / 1450 2821 / 2821 Output Total 0 / 0 0 / 0 Balance 450 / 1450 2821 / 2821 0 / 0 Weight 57.861 kg 57.861 kg 59.375 kg Constitutional: Present no acute distress, cachectic, chronically ill appearing, disheveled, agitated and somnolent; Absent combative Head: Present atraumatic and normocephalic ENT: Present normal exam Comment:: Bitemporal wasting, loss of periorbital fat Respiratory: Present crackles (Bilateral bases) and normal respiratory effort; Absent rhonchi or wheezes Cardiac: Present Reg Rate and Rhythm GI: Present soft and normal bowel sounds; Absent distention or tenderness Extremities: Present normal inspection Comment:: Sarcopenia Skin: Present intact; Absent erythema Comment:: Pressure wound on sacrum that is too small to measure Neuro: Present moves all extremities (Spontaneously) Comment:: Patient is blind. No meaningful response to questions. Difficulty in assessing orientation, not oriented to situation, place, or time. Oriented to self only. Responds to verbal stimuli with movement a
[2023-05-11 07:28] LABS: Alanine Aminotransferase 29 U/L (12-78); Albumin Level 2.6 g/dl (3.5-5.0); Albumin/Globulin Ratio 0.8 (1.1-1.8); Alkaline Phosphatase 168 U/L (38-126); Anion Gap 8.9 mEq/L (5-15); Aspartate Amino Transferase 43 U/L (17-59); Bilirubin,Total 0.3 mg/dl (0.2-1.3); Blood Urea Nitrogen 26 mg/dl (9-20); Calcium 7.8 mg/dl (8.4-10.2); Carbon Dioxide 27 mmol/L (22.0-30.0); Chloride 113 mmol/L (98-107); Creatinine Clearance Estimated 26 mL/min (50-200); Estimated Glomerular Filt Rate 36 ml/min (>60); GFR (African American) 44 ML/MIN (>60); Globulin 3.4 g/dL (1.3-3.2); Glucose 99 mg/dl (74-100); Potassium 3.9 mmoL/L (3.5-5.1); Sodium 145 mmol/L (136-145)
[2023-05-11 08:00] VITALS: BP 149/69; PULSE 84; RESP 18; TEMP 36.5; O2SAT 93
[2023-05-11 08:06] LABS: Basophils # 0.1 K/mm3 (0-0.2); Basophils % 0.6 % (0.1-2.0); Eosinophils # 0.6 K/mm3 (0.0-0.4); Eosinophils % 6.1 % (0.1-12.0); Hematocrit 54.6 % (42.0-52.0); Hemoglobin 16.4 g/dL (14.1-18.0); Lymphocytes # 1.4 K/mm3 (0.7-4.5); Lymphocytes % 14.5 % (10-50); Mean Corpuscular HGB Conc 30.1 g/dL (31.8-35.4); Mean Corpuscular Hemoglobin 24.5 pg (27.0-31.2); Mean Corpuscular Volume 81.5 fl (80-94); Mean Platelet Volume 7.5 fl (7.4-10.4); Monocytes # 0.6 K/mm3 (0.1-1.0); Monocytes % 6.7 % (1.7-9.3); Neutrophils # 6.8 K/mm3 (1.8-7.8); Platelet Count 203 K/mm3 (142-424); Red Blood Count 6.69 M/mm3 (4.60-6.20); Red Cell Distribution Width 17.4 % (11.5-17.5); White Blood Count 9.4 K/mm3 (4.8-10.8)
[2023-05-11 15:19] VITALS: BP 129/55; PULSE 76; RESP 18; TEMP 36.5; O2SAT 99
[2023-05-11 16:54] LABS: POC Glucose,Bedside 106 (70-110)
--- NOTE | 2023-05-11 18:11 | PC.NURSE ---
PT IS RESTING IN BED. ALERT TO SELF ONLY. PT HAS SLEPT ON AND OFF T/O THE SHIFT. PT HAS HAD A FEW BITES OF PUDDING AND ICE CREAM THIS SHIFT AND TOLERATED A FEW DRINKS OF HONEY THICK LIQUIDS. PT TOOK MEDS CRUSHED WITH PUDDING THIS MORNING. LUNG SOUNDS CLEAR. ABDOMEN SOFT/NON TENDER WITH ACTIVE BOWEL SOUNDS. INCONTINENT OF BOWEL AND BLADDER. WILL CONTINUE TO MONITOR.
[2023-05-11 19:48] VITALS: BP 143/51; PULSE 91; RESP 16; TEMP 36.8; O2SAT 96
[2023-05-12 04:00] VITALS: BP 133/72; PULSE 77; RESP 16; TEMP 36.6; O2SAT 94; BMI 19.3
--- NOTE | 2023-05-12 05:39 | PC.NURSE ---
Patient has rested off and on this shift. Will wake up and holler water , attempts to give patient water was unsuccessful patient would slap at this nurses hand and spit the water out. Patient refused finger sticks both times this shift, patient would pull hand away and attempt to smack at this nurses hands. Patient was able to take night medications (expect Docusate) crushed and in pudding, tolerated well. Lungs are clear to auscultation. BS active X 4. Patient is alert to name, unable to answer other orientation questions, at times patients speech is incoherent. Patient is bed rest and has been able to change positions with minimal assist. No acute changes at this time. Call cavazos in reach. Will continue with POC and medsurg protocols.
[2023-05-12 07:43] LABS: Basophils % 0.3 % (0.1-2.0); Eosinophils # 0.2 K/mm3 (0.0-0.4); Eosinophils % 4.2 % (0.1-12.0); Hematocrit 28.4 % (42.0-52.0); Lymphocytes # 1.1 K/mm3 (0.7-4.5); Lymphocytes % 19.4 % (10-50); Mean Corpuscular HGB Conc 30.9 g/dL (31.8-35.4); Mean Corpuscular Hemoglobin 24.6 pg (27.0-31.2); Mean Corpuscular Volume 79.6 fl (80-94); Mean Platelet Volume 7.7 fl (7.4-10.4); Monocytes # 0.3 K/mm3 (0.1-1.0); Monocytes % 5.3 % (1.7-9.3); Neutrophils # 3.9 K/mm3 (1.8-7.8); Neutrophils % 70.8 % (37.0-80.0); Platelet Count 399 K/mm3 (142-424); Red Blood Count 3.57 M/mm3 (4.60-6.20); White Blood Count 5.5 K/mm3 (4.8-10.8)
[2023-05-12 07:44] VITALS: BP 172/79; PULSE 98; RESP 19; TEMP 36.7; O2SAT 99
[2023-05-12 08:01] LABS: Alanine Aminotransferase 28 U/L (12-78); Albumin Level 2.7 g/dl (3.5-5.0); Albumin/Globulin Ratio 0.8 (1.1-1.8); Alkaline Phosphatase 177 U/L (38-126); Anion Gap 7.7 mEq/L (5-15); Aspartate Amino Transferase 43 U/L (17-59); Bilirubin,Total 0.3 mg/dl (0.2-1.3); Blood Urea Nitrogen 22 mg/dl (9-20); Carbon Dioxide 28 mmol/L (22.0-30.0); Chloride 114 mmol/L (98-107); Creatinine Clearance Estimated 31 mL/min (50-200); Estimated Glomerular Filt Rate 45 ml/min (>60); GFR (African American) 54 ML/MIN (>60); Globulin 3.6 g/dL (1.3-3.2); Glucose 85 mg/dl (74-100); Potassium 3.7 mmoL/L (3.5-5.1); Sodium 146 mmol/L (136-145); Total Protein,Serum 6.3 g/dl (6.3-8.2)
[2023-05-12 08:21] LABS: Hemoglobin 8.8 g/dL (14.1-18.0)
--- NOTE | 2023-05-12 14:55 | EXP.ACUTE.PN ---
Subjective *Date: 05/12/23 *Time: 14:55 Interval history: Patient pleasantly demented. Mumbling. Will scream out occasionally. No acute distress overnight. Vital stable. Afebrile. Discussed case with state worker this morning. She clarified that they have received the paperwork but he has not been approved for comfort measures nor hospice yet. Still awaiting review and approval. Medical Exam Vital signs and Labs for Last 24 Hours: Vital Signs Temp Pulse Resp BP Pulse Ox O2 Del Method 05/12/23 12:59 Room Air 05/12/23 11:00 Room Air 05/12/23 08:00 Room Air 05/12/23 09:00 Room Air 05/12/23 07:44 98.1 F 98 H 19 172/79 H 99 Room Air 05/12/23 06:23 Room Air 05/12/23 04:00 97.9 F 77 16 133/72 94 L Room Air 05/12/23 01:00 Room Air 05/11/23 21:00 Room Air 05/11/23 19:48 98.2 F 91 H 16 143/51 H 96 Room Air 05/11/23 18:23 Room Air 05/11/23 17:00 Room Air 05/11/23 15:19 97.7 F 76 18 129/55 L 99 Room Air 05/11/23 15:00 Room Air Intake and Output 05/11/23 05/12/23 05/12/23 23:59 07:59 15:59 Intake Total 1030 / 1080 50 / 170 120 / 170 Balance 1030 / 1080 50 / 170 120 / 170 Intake: Intake, Oral Amount 60 / 110 50 / 170 120 / 170 Intake, Total IV Amount 970 / 970 Lactated Ringers 1000ML 1,000 970 / 970 ml @ 250 mls/hr IV .Q4H [facility] Rx# :[id number] Other: Number of Unmeasured Voids 3 Weight 59.012 kg Patient Weight 05/12/23 23:59 Weight 59.012 kg Laboratory Results - last 24 hr 05/11/23 16:47: POC Glucose 106 05/12/23 06:35: WBC 5.5 D, RBC 3.57 L D, Hgb 8.8 L D, Hct 28.4 L, MCV 79.6 L, MCH 24.6 L, MCHC 30.9 L, RDW 18.0 H, Plt Count 399 D, MPV 7.7, Neut % (Auto) 70.8, Lymph % (Auto) 19.4, [place] % (Auto) 5.3, Eos % (Auto) 4.2, Baso % (Auto) 0.3, Neut # (Auto) 3.9, Lymph # (Auto) 1.1, [place] # (Auto) 0.3, Eos # (Auto) 0.2, Baso # (Auto) 0.0, Sodium 146 H, Potassium 3.7, Chloride 114 H, Carbon Dioxide 28, Anion Gap 7.7, BUN 22 H, Creatinine 1.50 H, Estimated Creat Clear 31, Estimated GFR 45 L, Est GFR ( Amer) 54 L D, Glucose 85, Calcium 8.0 L, Magnesium 2.0, Total Bilirubin 0.3, AST 43, ALT 28, Alkaline Phosphatase 177 H, Total Protein 6.3, Albumin 2.7 L, Globulin 3.6 H, Albumin/Globulin Ratio 0.8 L I & O for Labs for Last 24 Hours: Intake & Output 05/09/23 05/10/23 05/11/23 05/12/23 23:59 23:59 23:59 23:59 Intake Total 450 / 1450 2821 / 2821 1030 / 1080 170 / 170 Output Total 0 / 0 0 / 0 Balance 450 / 1450 2821 / 2821 1030 / 1080 170 / 170 Weight 57.861 kg 57.861 kg 59.375 kg 59.012 kg Constitutional: Present no acute distress, cachectic, chronically ill appearing, disheveled, agitated and somnolent; Absent combative Head: Present atraumatic and normocephalic ENT: Present normal exam Comment:: Bitemporal wasting, loss of periorbital fat Respiratory: Present crackles (Bilateral bases) and normal respiratory effort; Absent rhonchi or wheezes Cardiac: Present Reg Rate and Rhythm GI: Present soft and normal bowel sounds; Absent distention or tenderness Extremities: Present normal inspection Comment:: Sarcopenia Skin: Present intact; Absent erythema Comment:: Pressure wound on sacrum that is too small to measure Neuro: Present moves all extremities (Spontaneously) Comment:: Patient is blind. No meaningful response to questions. Difficulty in assessing orientation, not oriented to situation, place, or time. Oriented to self only. Responds to verbal stimuli with movement and nonspecific calling out. Assessment and Plan *Assessment and plan (1) Failure to thrive in adult: Status: Acute Category: Medical Code(s): R62.7 - Adult failure to thrive (2) Schizophrenia: Status: Chronic Qualifiers: Schizophrenia type: paranoid schizophrenia Qualified Code(s): F20.0 - Paranoid schizophrenia Category: Medical Code(s): F20.9 - Schizophrenia, unspe
[2023-05-12 15:15] VITALS: BP 166/75; PULSE 98; RESP 17; TEMP 36.7; O2SAT 99
--- NOTE | 2023-05-12 17:18 | PC.NURSE ---
PT IS RESTING IN BED. ALERT TO SELF ONLY. ANSWERS SIMPLE QUESTIONS. PT HAS TOLERATED 2 CONTAINERS OF PUDDING AND THICKENED WATER THIS SHIFT. PT DID TAKE A FEW BITES OF MASHED POTATOES AND SHERBET FOR LUNCH. LUNG SOUNDS CLEAR. ABDOMEN SOFT/NON TENDER WITH ACTIVE BOWEL SOUNDS. INCONTINENT OF BOWEL AND BLADDER. IV INFILTRATED THIS SHIFT. STATED IT WAS FINE TO LEAVE IT OUT AND SWITCH TO PO ANTIBIOTICS. WILL CONTINUE TO MONITOR.
[2023-05-12 20:00] VITALS: BP 135/85; PULSE 80; RESP 20; TEMP 36.6; O2SAT 96
[2023-05-13 04:00] VITALS: BP 161/79; PULSE 101; RESP 16; TEMP 36.7; O2SAT 93; BMI 19.3
--- NOTE | 2023-05-13 05:18 | PC.NURSE ---
Patient has rested off an on through the night. Patient was restless off and on during the shift and RN and tech would redirected patient to stop screaming. Patient was incontinent through the night. Patient took meds crushed in pudding and handled it poorly. No other issues to note.
[2023-05-13 07:00] LABS: Alanine Aminotransferase 27 U/L (12-78); Albumin/Globulin Ratio 0.8 (1.1-1.8); Alkaline Phosphatase 153 U/L (38-126); Anion Gap 8.9 mEq/L (5-15); Aspartate Amino Transferase 44 U/L (17-59); Bilirubin,Total 0.4 mg/dl (0.2-1.3); Blood Urea Nitrogen 17 mg/dl (9-20); Calcium 8.1 mg/dl (8.4-10.2); Carbon Dioxide 30 mmol/L (22.0-30.0); Chloride 112 mmol/L (98-107); Creatinine Clearance Estimated 31 mL/min (50-200); Estimated Glomerular Filt Rate 45 ml/min (>60); GFR (African American) 54 ML/MIN (>60); Globulin 3.8 g/dL (1.3-3.2); Glucose 124 mg/dl (74-100); Potassium 3.9 mmoL/L (3.5-5.1); Sodium 147 mmol/L (136-145); Total Protein,Serum 6.8 g/dl (6.3-8.2)
[2023-05-13 07:40] VITALS: BP 158/81; PULSE 91; RESP 20; TEMP 36.9; O2SAT 95
--- NOTE | 2023-05-13 11:32 | EXP.ACUTE.PN ---
Subjective *Date: 05/13/23 *Time: 11:32 Interval history: Pleasant on exam. Interactive. Does not know where he is but is alert to person. Stable on room air. Afebrile Medical Exam Vital signs and Labs for Last 24 Hours: Vital Signs Temp Pulse Resp BP Pulse Ox O2 Del Method 05/13/23 09:00 Room Air 05/13/23 07:40 98.4 F 91 H 20 158/81 H 95 Room Air 05/13/23 07:00 Room Air 05/13/23 05:00 Room Air 05/13/23 04:00 98.1 F 101 H 16 161/79 H 93 L Room Air 05/13/23 02:59 Room Air 05/13/23 01:00 Room Air 05/12/23 23:00 Room Air 05/12/23 21:00 Room Air 05/12/23 20:00 Room Air 05/12/23 20:00 97.9 F 80 20 135/85 96 Room Air 05/12/23 18:37 Room Air 05/12/23 17:00 Room Air 05/12/23 15:15 98.0 F 98 H 17 166/75 H 99 Room Air 05/12/23 15:00 Room Air 05/12/23 12:59 Room Air Intake and Output 05/12/23 05/13/23 05/13/23 23:59 07:59 15:59 Intake Total 360 / 550 80 / 80 Output Total 0 / 0 0 / 0 Balance 360 / 550 80 / 80 Intake: Intake, Oral Amount 360 / 550 80 / 80 Output: Output, Urine Amount 0 / 0 0 / 0 Other: Number of Voids 0 Number of Unmeasured Voids 1 2 Weight 59.375 kg Patient Weight 05/13/23 23:59 Weight 59.375 kg Laboratory Results - last 24 hr 05/13/23 05:50: Sodium 147 H, Potassium 3.9, Chloride 112 H, Carbon Dioxide 30, Anion Gap 8.9, BUN 17, Creatinine 1.50 H, Estimated Creat Clear 31, Estimated GFR 45 L, Est GFR ( Amer) 54 L, Glucose 124 H D, Calcium 8.1 L, Total Bilirubin 0.4, AST 44, ALT 27, Alkaline Phosphatase 153 H, Total Protein 6.8, Albumin 3.0 L D, Globulin 3.8 H, Albumin/Globulin Ratio 0.8 L I & O for Labs for Last 24 Hours: Intake & Output 05/10/23 05/11/23 05/12/23 05/13/23 23:59 23:59 23:59 23:59 Intake Total 2820 1030 / 1080 530 / 550 80 / 80 Output Total 0 / 0 0 / 0 0 / 0 0 / 0 Balance 2820 1030 / 1080 530 / 550 80 / 80 Weight 57.861 kg 59.375 kg 59.012 kg 59.375 kg Constitutional: Present no acute distress, cachectic, chronically ill appearing, disheveled, agitated and somnolent; Absent combative Head: Present atraumatic and normocephalic ENT: Present normal exam Comment:: Bitemporal wasting, loss of periorbital fat Respiratory: Present crackles (Bilateral bases) and normal respiratory effort; Absent rhonchi or wheezes Cardiac: Present Reg Rate and Rhythm GI: Present soft and normal bowel sounds; Absent distention or tenderness Extremities: Present normal inspection Comment:: Sarcopenia Skin: Present intact; Absent erythema Comment:: Pressure wound on sacrum that is too small to measure Neuro: Present alert, awake and moves all extremities (Spontaneously) Comment:: Patient is blind. Oriented to self, not oriented to situation or place. Having periods of nonspecific calling out. Assessment and Plan *Assessment and plan (1) Failure to thrive in adult: Status: Acute Category: Medical Code(s): R62.7 - Adult failure to thrive (2) Schizophrenia: Status: Chronic Qualifiers: Schizophrenia type: paranoid schizophrenia Qualified Code(s): F20.0 - Paranoid schizophrenia Category: Medical Code(s): F20.9 - Schizophrenia, unspecified (3) Acute kidney failure: Status: Acute Qualifiers: Acute renal failure type: unspecified Qualified Code(s): N17.9 - Acute kidney failure, unspecified Category: Medical Code(s): N17.9 - Acute kidney failure, unspecified (4) Acute hypernatremia: Status: Acute Category: Medical Code(s): E87.0 - Hyperosmolality and hypernatremia (5) Pulmonary interstitial fibrosis: Status: Acute Category: Medical Code(s): J84.10 - Pulmonary fibrosis, unspecified (6) Dysphagia: Status: Acute Qualifiers: Dysphagia type: unspecified Qualified Code(s): R13.10 - Dysphagia, unspecified
[2023-05-13 15:26] VITALS: BP 166/67; PULSE 70; RESP 17; TEMP 36.2; O2SAT 100
[2023-05-13 20:00] VITALS: BP 164/64; PULSE 70; RESP 18; TEMP 36.7; O2SAT 98
[2023-05-14 03:05] VITALS: BMI 18.2
[2023-05-14 04:00] VITALS: BP 160/73; PULSE 74; RESP 18; TEMP 36.9; O2SAT 94; BMI 19.1
--- NOTE | 2023-05-14 04:24 | PC.NURSE ---
Shift summary: Pt at baseline orientation, AOx1, able to follow intermittent simple commands, and significant aspiration risk requiring multiple verbal prompts to swallow. At beginning of shift, pt yelled inappropriatey, but could be redirected (baseline). Pt slept for most of shift, RA, BP slightly elevated at beginning of shift but other VSS. Pt incontinent, x2 voids; bed bath and linen change completed this a.m. Seizure pads and bed alarm on, other safety interventions implemented. No acute issues or events overnight.
[2023-05-14 07:23] LABS: Anion Gap 7.2 mEq/L (5-15); Blood Urea Nitrogen 13 mg/dl (9-20); Calcium 8.1 mg/dl (8.4-10.2); Carbon Dioxide 32 mmol/L (22.0-30.0); Chloride 111 mmol/L (98-107); Creatinine Clearance Estimated 33 mL/min (50-200); Estimated Glomerular Filt Rate 48 ml/min (>60); GFR (African American) 59 ML/MIN (>60); Glucose 102 mg/dl (74-100); Potassium 3.2 mmoL/L (3.5-5.1); Sodium 147 mmol/L (136-145)
[2023-05-14 07:25] VITALS: BP 158/86; PULSE 95; RESP 18; TEMP 36.6; O2SAT 96
[2023-05-14 08:00] VITALS: O2SAT 96
[2023-05-14 15:31] VITALS: BP 162/80; PULSE 96; RESP 18; TEMP 36.6; O2SAT 96
--- NOTE | 2023-05-14 18:45 | EXP.PN ---
Subjective *Date: 05/14/23 *Time: 18:45 Interval history: Patient was seen and evaluated at the bedside. denies chest pain, shortness of breath, nausea, vomiting, abdominal pain. Patient does not have any complaints at this time. feels better overall Exam Data for Last 24 hours Vital signs and Labs for Last 24 Hours: Temp Pulse Resp BP Pulse Ox O2 Del Method 97.9 F 96 H 18 162/80 H 96 Room Air 05/14/23 15:31 05/14/23 15:31 05/14/23 15:31 05/14/23 15:31 05/14/23 15:31 05/14/23 18:05 Laboratory Results - last 24 hr 05/14/23 06:30: Sodium 147 H, Potassium 3.2 L, Chloride 111 H, Carbon Dioxide 32 H, Anion Gap 7.2, BUN 13, Creatinine 1.40 H, Estimated Creat Clear 33, Estimated GFR 48 L, Est GFR ( Amer) 59, Glucose 102 H, Calcium 8.1 L I & O for Last 24 hours: Intake & Output 05/11/23 05/12/23 05/13/23 05/14/23 23:59 23:59 23:59 23:59 Intake Total 1030 / 1080 530 / 550 130 / 130 180 / 180 Output Total 0 / 0 0 / 0 0 / 0 0 / 0 Balance 1030 / 1080 530 / 550 130 / 130 180 / 180 Weight 59.375 kg 59.012 kg 59.375 kg 58.74 kg Constitutional Constitutional: no acute distress *Routine HEENT Exam Head: Present normocephalic Eye: Present EOMI and PERRL ENT: Present mucous membranes moist *Routine Neck Exam Neck: Present supple; Absent lymphadenopathy *Routine Respiratory Exam Respiratory: Present CTA bilaterally *Routine Cardiovascular Exam Cardiovascular: Present RRR *Routine Abdominal Exam Abdominal: Present soft and normoactive bowel sounds; Absent tenderness *Routine Extremities Exam Extremities: Absent cyanosis, clubbing or edema *Routine Skin Exam Skin: Present warm; Absent rash *Routine Neurological Exam Neurological: Present alert and oriented X3 Assessment and Plan *Assessment and plan (1) Failure to thrive in adult: Status: Acute Category: Medical Code(s): R62.7 - Adult failure to thrive (2) Schizophrenia: Status: Chronic Qualifiers: Schizophrenia type: paranoid schizophrenia Qualified Code(s): F20.0 - Paranoid schizophrenia Category: Medical Code(s): F20.9 - Schizophrenia, unspecified (3) Acute kidney failure: Status: Acute Qualifiers: Acute renal failure type: unspecified Qualified Code(s): N17.9 - Acute kidney failure, unspecified Category: Medical Code(s): N17.9 - Acute kidney failure, unspecified (4) Acute hypernatremia: Status: Acute Category: Medical Code(s): E87.0 - Hyperosmolality and hypernatremia (5) Pulmonary interstitial fibrosis: Status: Acute Category: Medical Code(s): J84.10 - Pulmonary fibrosis, unspecified (6) Dysphagia: Status: Acute Qualifiers: Dysphagia type: unspecified Qualified Code(s): R13.10 - Dysphagia, unspecified Category: Medical Code(s): R13.10 - Dysphagia, unspecified (7) Diabetes mellitus: Status: Chronic Qualifiers: Diabetes mellitus type: type 2 Diabetes mellitus halfway insulin use: without halfway use Diabetes mellitus complication status: without complication Qualified Code(s): E11.9 - Type 2 diabetes mellitus without complications Category: Medical Code(s): E11.9 - Type 2 diabetes mellitus without complications (8) Hypothyroidism (acquired): Status: Chronic Category: Medical Code(s): E03.9 - Hypothyroidism, unspecified (9) Moderate intellectual disabilities: Status: Chronic Category: Medical Code(s): F71 - Moderate intellectual disabilities (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
[2023-05-14 20:00] VITALS: BP 158/66; PULSE 83; RESP 18; TEMP 36.6; O2SAT 98
[2023-05-15 04:00] VITALS: BMI 19.3
[2023-05-15 07:45] VITALS: BP 168/70; PULSE 96; RESP 18; TEMP 36.7; O2SAT 98
[2023-05-15 08:00] VITALS: PULSE 96; O2SAT 98
--- NOTE | 2023-05-15 09:55 | DIET.NUTRFU ---
Patient continues to have very poor po intake, couple bites of chocolate ice cream or mashed potatoes. He is on pureed with nectar thick liquids. Oral diet order for comfort only, not meeting needs. Aspiration precautions are in place, needs verbal reminders to swallow. He is manning of state and waiting for hospice eval, happening today. Placement after hospice discussion. No BM noted since 05/11, medications in place, nursing aware will report in rounds.
--- NOTE | 2023-05-15 12:01 | EXP.DC.SUM ---
General Admission date:: 05/09/23 Discharge date: 05/15/23 HPI HPI HPI: Patient is AN 82-year-old male with history of bilateral blindness, severe developmental delay, schizophrenia, advanced dementia, chronic kidney disease, diabetes, hypothyroidism, pulmonary fibrosis. He is a resident of long-term and [place] of the on license of [facility]. long term reports swallowing issues for at least several weeks. According to the record patient has significant advanced dementia and at the long-term has a mattress pad on the floor upon which she crawls around on it throughout the day. There is concerned about the patient's swallowing status over the past several weeks and concern for jaundice and therefore he was brought to the emergency department yesterday evening. Patient arrived covered in his own feces. Upon cleaning the patient from his own feces he did not appear jaundiced. Total bilirubin is 0.4. Patient was admitted for further workup and management. Patient has undergone speech therapy swallowing evaluation on more than 1 occasion in various phases have shown moderate to severe impairment. It was noted that patient is unable to follow commands due to significant dementia and conclusion is that patient is high aspiration risk and consideration be given for alternate means of nutrition versus hospice care based on the patient's state. Hospital Course Hospital Course Hospital Course: Patient is a 82-year-old female. Patient was seen and evaluated at the bedside on the day of discharge. Patient is stable for discharge. Patient wishes to be discharged. All patient questions were answered and patient was given time to ask questions. Patient was discharged in stable condition. Presented to hospital for difficulty swallowing Assessment Acute kidney injury Hyponatremia Suspect aspiration Dysphagia State approved for Hospice care, patient will be discharged with Hospice c are Exam Data for Last 24 hours Vital signs and Labs for Last 24 Hours: Temp Pulse Resp BP Pulse Ox O2 Del Method 98.0 F 96 H 18 168/70 H 98 Room Air 05/15/23 07:45 05/15/23 08:00 05/15/23 07:45 05/15/23 07:45 05/15/23 08:00 05/15/23 11:00 I & O for Last 24 hours: Intake & Output 05/12/23 05/13/23 05/14/23 05/15/23 23:59 23:59 23:59 23:59 Intake Total 530 / 550 130 / 130 180 / 180 0 / 0 Output Total 0 / 0 0 / 0 0 / 0 0 / 0 Balance 530 / 550 130 / 130 180 / 180 0 / 0 Weight 59.012 kg 59.375 kg 58.74 kg 59.109 kg Constitutional Constitutional: no acute distress *Routine HEENT Exam Head: Present normocephalic Eye: Present EOMI and PERRL ENT: Present mucous membranes moist *Routine Neck Exam Neck: Present supple; Absent lymphadenopathy *Routine Respiratory Exam Respiratory: Present CTA bilaterally *Routine Cardiovascular Exam Cardiovascular: Present RRR *Routine Abdominal Exam Abdominal: Present soft and normoactive bowel sounds; Absent tenderness *Routine Extremities Exam Extremities: Absent cyanosis, clubbing or edema *Routine Skin Exam Skin: Present warm; Absent rash *Routine Neurological Exam Neurological: Present alert Comments: AxA x0 DS: Diagnosis Discharge Diagnosis (1) Failure to thrive in adult: Status: Acute Code(s): R62.7 - Adult failure to thrive (2) Schizophrenia: Status: Chronic Code(s): F20.9 - Schizophrenia, unspecified Qualifiers: Schizophrenia type: paranoid schizophrenia Qualified Code(s): F20.0 - Paranoid schizophrenia (3) Acute kidney failure: Status: Acute Code(s): N17.9 - Acute kidney failure, unspecified Qualifiers: Acute renal failure type: unspecified Qualified Code(s): N17.9 - Acute kidney failure, unspecified (4) Acute hypernatremia: Status: Acute Code(s): E87.0 - Hyperosmolality and hypernatremia (5) Pulmonary interstitial fibrosis: Status: Acute Code(s): J84.10 - Pulmonary fibrosis, unspecified
--- NOTE | 2023-05-15 12:35 | PC.NURSE ---
1232 report called to Kalyn [place].
== END 2023-05-15 13:40 | disposition hospice, inpatient (51) | DRG 682 ==
LOC: ER 22:10 → 2ND 22:52
PROVIDERS: Nurse Practitioner Family; Admitting Provider Internal Medicine Adolescent Medicine; Emergency Provider Emergency Medicine; PCP Emergency Medicine; Visit Provider Internal Medicine Adolescent Medicine
DX: N17.9 Acute kidney failure, unspecified (principal); J69.0 Pneumonitis due to inhalation of food and vomit; E87.0 Hyperosmolality and hypernatremia; F20.0 Paranoid schizophrenia; R62.7 Adult failure to thrive; J84.10 Pulmonary fibrosis, unspecified; R13.10 Dysphagia, unspecified; E03.9 Hypothyroidism, unspecified; F71 Moderate intellectual disabilities; H54.3 Unqualified visual loss, both eyes; E11.22 Type 2 diabetes mellitus with diabetic chronic kidney disease; N18.9 Chronic kidney disease, unspecified
CPT/HCPCS: 36415; 71045; 80048; 80053; 82803; 82962; 83605; 83690; 83735; 85025; 92610; 99285; J0696